=== PATIENT | female | born 1950 | race Caucasian/White ===

== ENCOUNTER → 2017-02-15 | Day surgery (SDC) | payer OTHER ==
[2017-02-05 10:04] VITALS: BMI 29.0
[~2017-02-15] VITALS: Ht 167.6 cm; Wt 81.8 kg
[~2017-02-15] MED LIST: FENTANYL CITRATE INJ 50 MCG/1 ML 2 ML VIAL ONE; LIDOCAINE HCL 2% 2 ML VIAL (20MG/ML) ONE; PROPOFOL IV EMULSION 10 MG/ML 20 ML VIAL IV ONE; VNTHFA/IN INH
[2017-02-15 09:57] VITALS: Ht 167.6 cm; Wt 81.8 kg
--- NOTE | 2017-02-15 10:22 | Endo History and Physical ---
History & Physical Date of Service: Feb 15, 2017. Chief Complaint: hx of polyps Referring Physician: Dr. Lantigua History of Present Illness H/o polyps Past Surgical History Hx Cardiac Surgery: No Hx Internal Defibrillator: No Hx Pacemaker: No Hx Abdominal Surgery: Yes (TUBAL LIGATION) Hx of Implantable Prosthesis: No Hx Post-Op Nausea and Vomiting: No Hx Cancer Surgery: No Hx Thoracic Surgery: No Hx Orthopedic: No Hx Urinary Tract Surgery: No Family History None Social History Smoking Status: Former Smoker Hx Substance Use: No Hx Alcohol Use: No Allergies Coded Allergies: No Known Allergies (Unverified , 02/15/17) Current Medications Reported Home Medications Medications Dose Route/Sig Max Daily Dose Days Date Category Ventolin Hfa (Albuterol) 200 Puffs/50669 Mcg Aers 2-4 Puffs INH Q6H PRN 02/05/17 Reported Vital Signs Weight (Kilograms): 81.82 Height (Feet): 5 Height (Inches): 6 Date Time Temp Pulse Resp B/P Pulse Ox O2 Delivery O2 Flow Rate FiO2 02/15/17 10:12 37.0 64 16 140/74 93 Room Air Physical Exam General Appearance: no apparent distress Respiratory/Chest: Auscultation: breath sounds normal Cardiovascular: Heart Auscultation: RRR Abdomen: Inspection & Palpation: soft Assessment and Plan H/o polyps - cscopy
--- NOTE | 2017-02-15 11:25 | Discharge Instructions ---
Endoscopy Patient Instructions Date / Procedure(s) Performed Feb 15, 2017. Colonoscopy Allergy Information Coded Allergies: No Known Allergies (Unverified , 02/15/17) Discharge Date / Findings Feb 15, 2017. Multiple polyps, colitis, diverticulosis Provider Instructions Activity Restrictions - No exercising or heavy lifting for 24 hours. - Do not drink alcohol the day of the procedure. - Do not drive a car or operate machinery until the day after the procedure. - Do not make any important decisions or sign important papers in 24 hours after the procedure. Following Day: - Return to full activity which may include returning to work/school. Diet Start your diet with liquids and light foods (jello, soup, juice, toast). Then eat your usual diet if not nauseated. Treatment For Common After Affects For mild abdominal pain, bloating, or excessive gas: - Rest - Eat lightly - Lie on right side Follow-Up Information Follow-up with Dr. Lantigua as scheduled Anesthesia Information What You Should Know You have had a procedure that required some medicine to reduce anxiety and discomfort. This treatment is called moderate sedation. After receiving the treatment, you may be sleepy, but you will be able to breathe on your own. The effects of the treatment may last for several hours. Follow these instructions along with Activity/Diet recommendations noted above: * Do NOT do anything where dizziness or clumsiness would be dangerous. * Rest quietly at home today, then you can be up and about tomorrow. * Have a responsible person stay with you the rest of today. * You may have had an I.V. today. If so, you may take the dressing off later today. Recommendations Call your doctor if: * Trouble breathing * Continuous vomiting for more than 24 hours * Temperature above 101 degrees * Severe abdominal pain or bloating * Pain not relieved by pain medicine ordered * There is increased drainage or redness from any incision * A large amount of rectal bleeding greater than 2-3 tablespoons. (If you had a polyp/s removed or have hemorrhoids, a small amount of blood - from the rectum is to be expected.) * You have any unanswered questions or concerns. IN THE EVENT OF A SERIOUS EMERGENCY, GO TO THE NEAREST EMERGENCY ROOM Your discharge instructions were prepared by provider Krunal Huston. Patient Instructions Signature Page Elida Cotter Patient (or Guardian) Signature/Date: I have read and understand the instructions given to me by my caregivers. Caregiver/RN/Doctor Signature/Date: The above-named patient and/or guardian has received patient instructions on this date. + Original Patient Signature Page (only) stays with chart. Please make copy for patient.
--- NOTE | 2017-02-15 11:25 | GI REPORT ---
Procedure Date: 02/15/2017 10:16 AM Procedure: Colonoscopy Indications: High risk colon cancer surveillance: Personal history of colonic polyps Medicines: See the Anesthesia note for documentation of the administered medications Complications: No immediate complications. Estimated Blood Loss: Estimated blood loss: none. Procedure: Pre-Anesthesia Assessment: - ASA Grade Assessment: II - A patient with mild systemic disease. After I obtained informed consent, the scope was passed under direct vision. Throughout the procedure, the patient's blood pressure, pulse, and oxygen saturations were monitored continuously. The scope was introduced through the anus and advanced to the terminal ileum. The colonoscopy was performed without difficulty. The patient tolerated the procedure well. The quality of the bowel preparation was good. Findings: The perianal and digital rectal examinations were normal. Multiple small and large-mouthed diverticula were found in the sigmoid colon and in the descending colon. There was a localized area of patchy marked granularity and submucosal hemorrhage isolated to the sigmoid colon, in an area of diverticulosis, and in cecum. Biopsies taken from cecum and sigmoid colon. A 3 mm polyp was found at the appendiceal orifice. The polyp was sessile. The polyp was removed with a cold snare. Resection and retrieval were complete. A 7 mm polyp was found in the ascending colon. The polyp was sessile. The polyp was removed with a saline injection-lift technique using a hot snare. Resection and retrieval were complete. To prevent bleeding after the polypectomy, one hemostatic clip was successfully placed. There was no bleeding at the end of the procedure. A 2 mm polyp was found in the ascending colon. The polyp was sessile. The polyp was removed with a cold biopsy forceps. Resection and retrieval were complete. Three sessile polyps were found at the hepatic flexure. The polyps were 1 to 4 mm in size. These polyps were removed with a cold snare. Resection and retrieval were complete. Tattoo at splenic flexure without evidence of recurrent polyp. The ileum was normal. Impression: - Diverticulosis in the sigmoid colon and in the descending colon. - Patchy colitis in an area of sigmoid diverticulosis, and in cecum. - One 3 mm polyp at the appendiceal orifice, removed with a cold snare. Resected and retrieved. - One 7 mm polyp in the ascending colon, removed using injection-lift and a hot snare. Resected and retrieved. Clip was placed. - One 2 mm polyp in the ascending colon, removed with a cold biopsy forceps. Resected and retrieved. - Three 1 to 4 mm polyps at the hepatic flexure, removed with a cold snare. Resected and retrieved. Recommendation: - Await pathology results. - Discharge patient to home. Krunal Real M.D. Krunal Real MD 02/15/2017 11:25:27 AM This report has been signed electronically. Note Initiated On: 02/15/2017 10:16 AM I attest to the content of the Intraoperative Record and orders documented therein, exceptions below
[2017-02-15 11:58] VITALS: BP 123/62; PULSE 58; O2SAT 99
--- NOTE | 2017-02-15 12:28 | Anesthesiology Progress Note ---
Anesthesia Post Op Note Date & Time Feb 15, 2017 at 12:28 Vital Signs Pain Intensity: 0 Vital Signs Past 12 Hours Date Time Temp Pulse Resp B/P Pulse Ox O2 Delivery O2 Flow Rate FiO2 02/15/17 11:58 58 18 123/62 99 Room Air 02/15/17 11:27 52 18 123/61 97 Room Air 02/15/17 11:25 58 16 129/60 97 Room Air 02/15/17 11:06 67 16 100/67 95 Room Air 02/15/17 10:12 37.0 64 16 140/74 93 Room Air Notes Mental Status: alert / awake / arousable, participated in evaluation Pt Amnestic to Procedure: Yes Nausea / Vomiting: adequately controlled Pain: adequately controlled Airway Patency, RR, SpO2: stable & adequate BP & HR: stable & adequate Hydration State: stable & adequate Anesthetic Complications: no major complications apparent
== END | disposition home or self-care (01) ==
LOC: C.GI 09:21
PROVIDERS: ATTEND Internal Medicine Gastroenterology
DX: Z12.11 Encounter for screening for malignant neoplasm of colon (principal); Z86.010 Personal history of colon polyps; K57.31 Diverticulosis of large intestine without perforation or abscess with bleeding; K57.30 Diverticulosis of large intestine without perforation or abscess without bleeding; D12.1 Benign neoplasm of appendix; D12.2 Benign neoplasm of ascending colon; D12.3 Benign neoplasm of transverse colon; K52.9 Noninfective gastroenteritis and colitis, unspecified

== ENCOUNTER 2019-08-03 09:05 | Inpatient (IN) ==
[2019-08-03] MEDS ORDERED: ALBUT/IPRATROP 3MG/0.5MG NEB 3 ML VIAL NEB ONE (09:49)
[2019-08-03] MEDS ORDERED: methylPREDNISolone 125 MG/2 ML VIAL IV STA (09:49)
[2019-08-03 09:57] LABS: Basophils # (auto) 0.01 K/uL (0-0.2); Basophils % (auto) 0.1 %; Hematocrit (blood only) 45.6 % (37-47); Hemoglobin 16.1 g/dL (12.0-16.0); Immature Granulocytes # (auto) 0.02 K/uL (0.00-0.02); Immature Granulocytes % (auto) 0.2 %; Lymphocytes # (auto) 0.63 K/uL (1.2-3.4); Lymphocytes % (auto) 7.2 %; Mean Corpuscular Hemoglobin 32.8 pg (25-34); Mean Corpuscular Hgb Conc 35.3 g/dL (32-36); Mean Corpuscular Volume 92.9 fL (80-100); Mean Platelet Volume 10.9 fL (7.4-10.4); Monocytes # (auto) 0.63 K/uL (0.11-0.59); Monocytes % (auto) 7.2 %; Neutrophils % (auto) 85.3 %; Platelet Count 236 K/uL (130-400); RDW Coefficient of Variation 13.2 % (11.5-14.5); RDW Standard Deviation 44.8 fL (36.4-46.3); Red Blood Count 4.91 M/uL (4.2-5.4); White Blood Count 8.69 K/uL (4.8-10.8)
--- NOTE | 2019-08-03 10:01 | XRay Report ---
XR chest 1V portable CLINICAL HISTORY: 69 years-old Female presenting with shob. TECHNIQUE: Portable upright AP view of the chest was obtained. COMPARISON: 10/13/2018. FINDINGS: Atherosclerosis of the aortic arch. Cardiac silhouette enlarged. Pulmonary vascular prominence and in terlobular septal thickening. Added density of the lung bases with hazy opacity suggested. No large e ffusion or pneumothorax. Degenerative changes of the thoracic spine. Upper abdomen normal. IMPRESSION: 1. Cardiomegaly with volume overload, congestive change, and early bibasilar pulmonary edema. Electronically signed by: Javi Parker M.D. 08/03/2019 10:00 AM
[2019-08-03 10:04] LABS: Blood Urea Nitrogen 17 mg/dl (7-18); Calcium 9.3 mg/dl (8.5-10.1); Carbon Dioxide 27 mmol/L (21-32); Chloride 101 mmol/L (98-107); Est GFR (African American) 72.7; Est GFR (Non-African American) 62.7; Glucose 135 mg/dl (70-99); Magnesium 2.3 mg/dl (1.8-2.4); Potassium 4.1 mmol/L (3.5-5.1); Sodium 136 mmol/L (136-145)
[2019-08-03 10:09] LABS: Troponin I < 0.015 ng/ml (0-0.045)
[2019-08-03 10:47] LABS: Oxygen Saturation VBG 73.8 %; pH VBG 7.44 (7.36-7.41)
[2019-08-03] MEDS ORDERED: LEVOFLOXACIN/D5W 750 MG/150 ML BAG IV STA (11:52)
[2019-08-03] MEDS ORDERED: FUROSEMIDE 20 MG in SYRINGE 0 ML IV ONE (12:57)
--- NOTE | 2019-08-03 12:58 | History & Physical Report ---
Date of Service August 03, 2019 Assessment & Plan (1) COPD exacerbation: (2) Hypoxia: Present on admission with worsening shortness of breath. CXR showed cardiomegaly with volume overload, congestive change, and early bibasilar pulmonary edema Received IV solumedrol, Levaquin and nebulizer treatment in the ER Will start on IV solumedrol 40mg IV BID Continue Neb treatment and oxygen supplement Will Continue zithromax 250mg daily Volume Overload CXR showed cardiomegaly with volume overload, congestive change, and early bibasilar pulmonary edema No History of CHF Last ECHO on 10/19 showed no wall motion abnormality with EF btw 55 to 60% Will give Lasix 20mg IV Will repeat CXR in am DVT px on lovenox subq Ambulates Code Status FULL CODE History of Present Illness Chief Complaint: Worsening SOB Primary Care Provider: Virgilio Gallegos MD 69 years old female with past medical history of COPD, osteoporosis presented to the ER for worsening shortness of breath and wheezing. Patient said that shortness of breath started about 2 days ago. She said that yesterday shortness of breath occurred with minimal exertion but today her breathing got worse today. She said that she also developed productive cough. She said that she used her inhaler with no relief. she denies any recent traveling or sick contact. She said last night she started rescue kit for prednisone and azithromycin. She states she does use oxygen at night and she has been using it. In the ER she received nebulizer treatment and IV Solu-Medrol. CXR done in the ER showed cardiomegaly with volume overload, congestive change, and early bibasilar pulmonary edema. Currently denies any chest pain, palpitation, dizziness, and fever. Allergies Allergy/AdvReac Type Severity Reaction Status Date / Time No Known Allergies Allergy Verified 08/03/19 10:48 Home Medications Home Medications Medication Instructions Recorded Confirmed Type albuterol sulfate [Ventolin HFA] 2 - 4 puff INHALATION BID 10/13/18 08/03/19 His tory Trelegy Ellipta 1 puffs INH PM 08/03/19 08/03/19 History azithromycin 250 mg PO DAILY 08/03/19 08/03/19 History prednisone See Rx Instructions .ROUTE .COMPLEX 08/03/19 08/03/19 History Past Med/Surg History Medical History COPD (chronic obstructive pulmonary disease) Osteoporosis Adenomatous colon polyp History of tooth extraction all teeth On home oxygen therapy 3.5 L N/C hs and prn Surgical History History of tubal ligation Hx of colonoscopy with polypectomy 2009, 2010, 2011, 2014, 2016, 2018 Family History Mother Colon cancer Sister , age 18 Leukemia Sister , age 55 Lung cancer Other No family history of adverse response to anesthesia Social History Preferred Language: Gambian Communication Ability: Effective 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 Beliefs That Will Affect Care: None marital status: Current Living Situation: Spouse Other Information That Helps Us Care for You: No Feels Safe at Home: Yes Safety Concerns: Feels Safe At This Time Smoking Status: Former smoker Tobacco Type: cigarettes ; Cigarettes Per Day: 15 ; Second Hand Exposure: No ; Hx Alcohol Use: No Hx Substance Use: No Review of Systems 2 Review of Systems: All systems reviewed & are unremarkable except as noted in HPI & below Physical Exam Physical Exam: General- No acute distress Head- atraumatic Eyes- PERRL, EOMI, ENT- oropharynx clear Neck- supple, no JVD Lungs- Diminished BS with faint wheezing Heart- regular rhythm; no murmur Abdomen- normal bowel sounds, soft, nontender Extremities- no calf tenderness Neuro- alert, oriented x 3; PERRL, EOMI; no facial palsy; no dysarthria Skin- warm & dry Results & Data Vital Signs (Past 12 Hours) Vital Signs Temp Pulse Pulse Resp BP BP Pulse Ox 08/03/19 12:15 79 17 90 08/03/19 12:00 81 18 140/65 91 08/03/19 11:45 82 14 91 08/03/19 11:30 81 18 132/64 94 08/03/19 11:19 89 L 08/03/19 11:00 72 20 128/66 94 08/03/19 10:45 62 15 93 08/03/19 10:30 61 20 121/68 94 08/03/19 10:15 61 18 97 08/03/19 10:13 59 L 16 126/82 95 08/03/19 10:04 56 L 16 91 08/03/19 10:00 55 L 16 126/82 90 08/03/19 09:45 63 20 91 08/03/19 09:34 56 L 20 117/66 91 08/03/19 09:33 54 L 16 117/66 91 08/03/19 09:30 61 17 89 L 08/03/19 09:22 65 17 91 08/03/19 09:09 36.7 C 63 20 153/82 H 89 L Diagnostic Findings XR chest 1V portable CLINICAL HISTORY: 69 years-old Female presenting with shob. TECHNIQUE: Portable upright AP view of the chest was obtained. COMPARISON: 10/13/2018. FINDINGS: Atherosclerosis of the aortic arch. Cardiac silhouette enlarged. Pulmonary vascular prominence and interlobular septal thickening. Added density of the lung bases with hazy opacity suggested. No large effusion or pneumothorax. Degenerative changes of the thoracic spine. Upper abdomen normal. IMPRESSION: 1. Cardiomegaly with volume overload, congestive change, and early bibasilar pulmonary edema. Electronically signed by: Javi Parker M.D. 08/03/2019 10:00 AM Dictated: 08/03/19 0959 Transcribed: 08/03/19 0959
[2019-08-03] MEDS: ALBUT/IPRATROP 3MG/0.5MG NEB 3 ML VIAL NEB SCH ×2 (15:32→19:24)
--- NOTE | 2019-08-03 16:33 | Emergency Department Note ---
Entered by Kathy Trimble acting as a scribe for ED Provider Note Name: Elida Cotter Age: 69 Arrives Via: Walk In Informant: Patient CC: SOB HPI: A 69 year old female arrives for evaluation of SOB beginning yesterday. She reports she felt "isela" yesterday. When asked to clarify what this means, she states she just "did not feel good." The patient reports she uses oxygen at night but not during the day. Pt has a cough with some mucus and has persistent SOB while on 2 L of oxygen. Pt denies any history of CHF or history of heart problems, chest pain, urinary symptoms, headache, neck pain, vision changes, rashes. Dr. 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 Daughter notes symptoms worse with exertion, better with resting. She has had O2 sats in the 70s at home on room air. Denies fevers, chills, syncope. She started azithromycin last night without improvement. Using nebulizer without improvement. ROS: See above HPI for pertinent positives & negatives. A total of 10 systems reviewed and were otherwise negative. Past Medical History: COPD. Dependance on supplemental oxygen. Nephrolithiasis Past Surgical History: Tubal ligation. Colonoscopy with polypectomy Family History: Colon cancer. Leukemia. Lung cancer. Social History: . Lives with spouse. Former smoker. Home Medications: Albuterol Sulfate. Prednisone. Trelegy Ellipta. Allergies No known allergies Physical: Vitals: BP 153/82, P 59, R 16, O2 95%, Temp 98.1 Exam: GENERAL: Patient is unwell appearing and in mild distress. EYES: No scleral icterus, unremarkable pupils. ENT: Mucous membranes moist, no nasal congestion. NECK: No masses appreciated, no meningismus, trachea is midline. RESPIRATORY: Moving minimal air. Mildly dyspneic. Faint wheezing. CARDIOVASCULAR: Regular rate and rhythm. No murmurs, rubs, gallops appreciated. GASTROINTESTINAL: Abdomen soft, non-tender, no peritonitis. Bowel sounds positive. No masses appreciated. BACK: No midline tenderness, no CVA tenderness EXTREMITIES: Normal motion all extremities, no cyanosis, no edema. NEUROLOGIC: Alert and oriented, no acute motor or sensory deficits, no focal weakness, cranial nerves grossly intact. SKIN: No rash, no jaundice, no diaphoresis. ED Course: Prior Medical Record, Triage/Nursing Notes, Medications, Allergies reviewed by Me Vital Signs: reviewed and remarkable for wnl Labs: Reviewed and remarkable for wnl Interventions: saline lock, hour duoneb, levaquin 750mg IV, Solumedrol 125mg IV Imaging: Radiology results as stated below per my review and the radiologist's interpretation: XR chest 1V portable CLINICAL HISTORY: 69 years-old Female presenting with shob. TECHNIQUE: Portable upright AP view of the chest was obtained. COMPARISON: 10/13/2018. FINDINGS: Atherosclerosis of the aortic arch. Cardiac silhouette enlarged. Pulmonary vascular prominence and interlobular septal thickening. Added density of the lung bases with hazy opacity suggested. No large effusion or pneumothorax. Degenerative changes of the thoracic spine. Upper abdomen normal. IMPRESSION: 1. Cardiomegaly with volume overload, congestive change, and early bibasilar pulmonary edema. Electronically signed by: Javi Parker M.D. 08/03/2019 10:00 AM EKG: Per My Interpretation: Indication SHOB: NSR 61 bpm qtc 434 without ectopy nor ischemia. Similar to EKG 10/2018. Blood pressure: 153/82 Elevated - Further management by hospitalist Course: 0944: Past medical records reviewed. The patient was evaluated in room C7. A complete history and physical exam was performed. 1110: On nebulizer. Starting to move air but has tight wheezing throughout. Still dyspneic 1145: I checked on the patient at this time. She is unable to ambulate to the bathroom without dropping oxygen to 60%. Consults: 1154: I discussed the patients case with Dr. Avalos, [facility] Hospitalist. He will further evaluate the patient. Disposition: Being Evaluated by hospitalist Prescriptions: noen. Differentials: Differential: Infectious, Reactive Airway Disease, Pneumonia, Pneumothorax, COPD, CHF, ACS, Pulmonary Embolism, MSK, GI, Dissection, amongst other etiologies entertained. Medical Decision Making: Very pleasant 69 yr old female arrivals for evaluation of worsening shob over the last 2 days. Long history of COPD and uses O2 at night. Today with sats to 70s on RA. Very tight lung sounds on initial examination and after hour neb opening up some with diffuse wheezing and improved. She attempted to ambulate to bathroom and immediately drops to 70s sats. She does not have evidence of sepsis, pe, dissection nor acs. This is consistent with COPD exacerbation and given hypoxia will need to come in for further management. Impression: COPD exacerbation Hypoxia The scribe's documentation has been prepared under my direction and personally reviewed by me in its entirety. I confirm that the note above accurately reflects all work, treatment, procedures, and medical decision making performed by me. Mayo Daigle MD Impression & Plan COPD exacerbation, Hypoxia Past Med/Surg History Medical History COPD (chronic obstructive pulmonary disease) Osteoporosis Adenomatous colon polyp History of tooth extraction all teeth On home oxygen therapy 3.5 L N/C hs and prn Surgical History History of tubal ligation Hx of colonoscopy with polypectomy 2009, 2010, 2011, 2014, 2016, 2018 Family History Mother Colon cancer Sister , age 18 Leukemia Sister , age 55 Lung cancer Other No family history of adverse response to anesthesia Social History Preferred Language: Senegalese Communication Ability: Effective Student Driving Instructor Required: No Beliefs That Will Affect Care: None marital status: Current Living Situation: Spouse Other Information That Helps Us Care for You: No Feels Safe at Home: Yes Safety Concerns: Feels Safe At This Time Smoking Status: Former smoker Tobacco Type: cigarettes ; Cigarettes Per Day: 15 ; Second Hand Exposure: No ; Hx Alcohol Use: No Hx Substance Use: No Results & Data Vital Signs Vital Signs - 24 hr 08/03/19 09:09 08/03/19 09:22 08/03/19 09:30 Temperature 36.7 C Temperature Source Oral Sepsis Recent Fever Within 48 Hours No Sepsis New/Unexplained Change in Mental Status No Sepsis Action Taken by Nursing No Action Required Pulse Rate 63 65 61 Pulse Rate [Apical] Pulse Rate from SpO2 Sensor 65 60 Pulse Rhythm [Apical] Pulse Strength [Apical] Respiratory Rate 20 17 17 Respiratory Effort / Characteristics Blood Pressure 153/82 H Blood Pressure [Left Arm] Blood Pressure Mean 105 Blood Pressure Mean [Left Arm] Blood Pressure Position [Left Arm] Pulse Oximetry 89 L 91 89 L Oxygen Delivery Method Nasal Cannula Nasal Cannula Nasal Cannula Oxygen Flow Rate 3 3.5 3.5 08/03/19 09:33 08/03/19 09:34 08/03/19 09:45 Temperature Temperature Source Sepsis Recent Fever Within 48 Hours Sepsis New/Unexplained Change in Mental Status Sepsis Action Taken by Nursing Pulse Rate 54 L 63 Pulse Rate [Apical] 56 L Pulse Rate from SpO2 Sensor 56 L 64 Pulse Rhythm [Apical] Regular Pulse Strength [Apical] Normal Respiratory Rate 16 20 20 Respiratory Effort / Characteristics Short of Breath Blood Pressure 117/66 Blood Pressure [Left Arm] 117/66 Blood Pressure Mean 83 Blood Pressure Mean [Left Arm] 83 Blood Pressure Position [Left Arm] Lying Pulse Oximetry 91 91 91 Oxygen Delivery Method Nasal Cannula Nasal Cannula Nasal Cannula Oxygen Flow Rate 3.5 3.5 3.5 08/03/19 10:00 08/03/19 10:04 08/03/19 10:13 Temperature Temperature Source Sepsis Recent Fever Within 48 Hours Sepsis New/Unexplained Change in Mental Status Sepsis Action Taken by Nursing Pulse Rate 55 L Pulse Rate [Apical] 56 L 59 L Pulse Rate from SpO2 Sensor 56 L Pulse Rhythm [Apical] Regular Pulse Strength [Apical] Normal Respiratory Rate 16 16 16 Respiratory Effort / Characteristics Non-Labored Spontaneous Non-Labored Spontaneous Blood Pressure 126/82 Blood Pressure [Left Arm] 126/82 Blood Pressure Mean 96 Blood Pressure Mean [Left Arm] 96 Blood Pressure Position [Left Arm] Lying Pulse Oximetry 90 91 95 Oxygen Delivery Method Nasal Cannula Nasal Cannula Nebulizer Oxygen Flow Rate 3.5 3.5 08/03/19 10:15 08/03/19 10:30 08/03/19 10:45 Temperature Temperature Source Sepsis Recent Fever Within 48 Hours Sepsis New/Unexplained Change in Mental Status Sepsis Action Taken by Nursing Pulse Rate 61 61 62 Pulse Rate [Apical] Pulse Rate from SpO2 Sensor 60 61 62 Pulse Rhythm [Apical] Pulse Strength [Apical] Respiratory Rate 18 20 15 Respiratory Effort / Characteristics Blood Pressure 121/68 Blood Pressure [Left Arm] Blood Pressure Mean 85 Blood Pressure Mean [Left Arm] Blood Pressure Position [Left Arm] Pulse Oximetry 97 94 93 Oxygen Delivery Method Nebulizer Nasal Cannula Oxygen Flow Rate 7 3.5 08/03/19 11:00 08/03/19 11:19 08/03/19 11:30 Temperature Temperature Source Sepsis Recent Fever Within 48 Hours Sepsis New/Unexplained Change in Mental Status Sepsis Action Taken by Nursing Pulse Rate 72 81 Pulse Rate [Apical] Pulse Rate from SpO2 Sensor 74 96 H 81 Pulse Rhythm [Apical] Pulse Strength [Apical] Respiratory Rate 20 18 Respiratory Effort / Characteristics Blood Pressure 128/66 132/64 Blood Pressure [Left Arm] Blood Pressure Mean 86 86 Blood Pressure Mean [Left Arm] Blood Pressure Position [Left Arm] Pulse Oximetry 94 89 L 94 Oxygen Delivery Method Nasal Cannula Nasal Cannula Nasal Cannula Oxygen Flow Rate 3.5 3.5 3.5 08/03/19 11:45 08/03/19 12:00 08/03/19 12:15 Temperature Temperature Source Sepsis Recent Fever Within 48 Hours Sepsis New/Unexplained Change in Mental Status Sepsis Action Taken by Nursing Pulse Rate 82 81 79 Pulse Rate [Apical] Pulse Rate from SpO2 Sensor 83 80 78 Pulse Rhythm [Apical] Pulse Strength [Apical] Respiratory Rate 14 18 17 Respiratory Effort / Characteristics Blood Pressure 140/65 Blood Pressure [Left Arm] Blood Pressure Mean 90 Blood Pressure Mean [Left Arm] Blood Pressure Position [Left Arm] Pulse Oximetry 91 91 90 Oxygen Delivery Method Nasal Cannula Nasal Cannula Nasal Cannula Oxygen Flow Rate 3.5 3.5 3.5 Home Medications Current Medication List: was personally reviewed by me Laboratory Data Attestation: I reviewed the patient's lab results. Result diagrams: 08/03/19 09:34 08/03/19 09:34 Lab Results 08/03/19 08/03/19 08/03/19 Range/Units 09:34 09:34 09:34 WBC 8.69 (4.8-10.8) K/uL RBC 4.91 (4.2-5.4) M/uL Hgb 16.1 H (12.0-16.0) g/dL Hct 45.6 (37-47) % MCV 92.9 (80-100) fL MCH 32.8 (25-34) pg MCHC 35.3 (32-36) g/dL RDW Std Deviation 44.8 (36.4-46.3) fL RDW Coeff of Elvin 13.2 (11.5-14.5) % Plt Count 236 (130-400) K/uL MPV 10.9 H (7.4-10.4) fL Immature Gran % (Auto) 0.2 % Neut % (Auto) 85.3 % Lymph % (Auto) 7.2 % [place] % (Auto) 7.2 % Eos % (Auto) 0.0 % Baso % (Auto) 0.1 % Immature Gran # (Auto) 0.02 (0.00-0.02) K/uL Neut # (Auto) 7.40 H (1.4-6.5) K/uL Lymph # (Auto) 0.63 L (1.2-3.4) K/uL [place] # (Auto) 0.63 H (0.11-0.59) K/uL Eos # (Auto) 0.00 (0-0.5) K/uL Baso # (Auto) 0.01 (0-0.2) K/uL VBG pH (7.36-7.41) VBG pCO2 (38-50) mmHg VBG pO2 mmHg VBG HCO3 mmol/L VBG O2 Saturation % VBG Base Excess mEq/L Barometric Pressure mm/Hg Sodium 136 (136-145) mmol/L Potassium 4.1 (3.5-5.1) mmol/L Chloride 101 (98-107) mmol/L Carbon Dioxide 27 (21-32) mmol/L Anion Gap 8.0 (3-11) BUN 17 (7-18) mg/dl Creatinine 0.93 (0.6-1.2) mg/dl Est Cr Clr Drug Dosing 64.0 ml/min Est GFR ( Amer) 72.7 Est GFR (Non-Af Amer) 62.7 BUN/Creatinine Ratio 18.0 (10-20) Glucose 135 H (70-99) mg/dl Calcium 9.3 (8.5-10.1) mg/dl Magnesium 2.3 (1.8-2.4) mg/dl Troponin I < 0.015 (0-0.045) ng/ml NT-Pro-B Natriuret Pep 536 (0-900) pg/ml 08/03/19 Range/Units 10:36 WBC (4.8-10.8) K/uL RBC (4.2-5.4) M/uL Hgb (12.0-16.0) g/dL Hct (37-47) % MCV (80-100) fL MCH (25-34) pg MCHC (32-36) g/dL RDW Std Deviation (36.4-46.3) fL RDW Coeff of Elvin (11.5-14.5) % Plt Count (130-400) K/uL MPV (7.4-10.4) fL Immature Gran % (Auto) % Neut % (Auto) % Lymph % (Auto) % [place] % (Auto) % Eos % (Auto) % Baso % (Auto) % Immature Gran # (Auto) (0.00-0.02) K/uL Neut # (Auto) (1.4-6.5) K/uL Lymph # (Auto) (1.2-3.4) K/uL [place] # (Auto) (0.11-0.59) K/uL Eos # (Auto) (0-0.5) K/uL Baso # (Auto) (0-0.2) K/uL VBG pH 7.44 H (7.36-7.41) VBG pCO2 42 (38-50) mmHg VBG pO2 39 mmHg VBG HCO3 28 mmol/L VBG O2 Saturation 73.8 % VBG Base Excess 3.0 mEq/L Barometric Pressure 733.0 mm/Hg Sodium (136-145) mmol/L Potassium (3.5-5.1) mmol/L Chloride (98-107) mmol/L Carbon Dioxide (21-32) mmol/L Anion Gap (3-11) BUN (7-18) mg/dl Creatinine (0.6-1.2) mg/dl Est Cr Clr Drug Dosing ml/min Est GFR ( Amer) Est GFR (Non-Af Amer) BUN/Creatinine Ratio (10-20) Glucose (70-99) mg/dl Calcium (8.5-10.1) mg/dl Magnesium (1.8-2.4) mg/dl Troponin I (0-0.045) ng/ml NT-Pro-B Natriuret Pep (0-900) pg/ml Administered Medications Albuterol (Duoneb) 3 ml NEB QIDR [facility] Stop: 09/02/19 14:59 Last Admin: 08/03/19 15:32 Dose: 3 ml Documented by: [id number] Discontinued Medications Albuterol (Duoneb) 12 ml NEB ONE ONE Stop: 08/03/19 09:50 Last Admin: 08/03/19 10:03 Dose: 12 ml Documented by: [id number] Levofloxacin/Dextrose (Levaquin/D5w) 750 mg in 150 mls @ 100 mls/hr IV NOW STA Stop: 08/03/19 13:21 Last Infusion: 08/03/19 14:33 Dose: 0 mls/hr Documented by: [id number] Admin: 08/03/19 12:43 Dose: 100 mls/hr Documented by: [id number] Furosemide 20 mg/ Syringe 2 mls @ 4 mls/min IV ONE ONE Stop: 08/03/19 12:58 Last Admin: 08/03/19 13:32 Dose: 4 mls/min Documented by: [id number] Methylprednisolone (Solumedrol) 125 mg IV NOW STA Stop: 08/03/19 09:50 Last Admin: 08/03/19 10:12 Dose: 125 mg Documented by: [id number] Imaging Data Attestation: I personally reviewed and interpreted this imaging study as fol lows: Radiologist's Impression: Radiology results as stated below per my review and the radiologist's interpretation: XR chest 1V portable CLINICAL HISTORY: 69 years-old Female presenting with shob. TECHNIQUE: Portable upright AP view of the chest was obtained. COMPARISON: 10/13/2018. FINDINGS: Atherosclerosis of the aortic arch. Cardiac silhouette enlarged. Pulmonary vascular prominence and interlobular septal thickening. Added density of the lung bases with hazy opacity suggested. No large effusion or pneumothorax. Degenerative changes of the thoracic spine. Upper abdomen normal. IMPRESSION: 1. Cardiomegaly with volume overload, congestive change, and early bibasilar pulmonary edema. Electronically signed by: Javi Parker M.D. 08/03/2019 10:00 AM Blood Pressure Blood Pressure Findings: Elevated blood pressure Blood Pressure Disposition: further management by hospitalist Discharge Plan Visit Data *Final* Discharge Date/Time: 08/03/19 14:05 Chief Complaint: Shortness of Breath/Dyspnea Stated Complaint: SOB, NOT FEELING RIGHT ED Provider: Mayo Daigle Discharge Problem: COPD exacerbation, Hypoxia Patient Disposition: Admitted As Inpatient Discharge Instructions Interventions: ED Discharge Assessment Last Done: 08/03/19 14:05 The scribe's documentation has been prepared under my direction and personally reviewed by me in its entirety. I confirm that the note above accurately reflects all work, treatment, procedures, and medical decision making performed by me.
[2019-08-03] MEDS: AZITHROMYCIN 250 MG TAB PO SCH (20:06)
[2019-08-03] MEDS: methylPREDNISolone 40 MG in SYRINGE 0 ML IV SCH (20:06)
[2019-08-03] MEDS: FLUTICASONE/UMECLIDIN/VILANTER INH SCH (20:07)
[2019-08-03] MEDS: ENOXAPARIN INJ 40 MG/0.4 ML SYR SQ SCH (20:11)
--- NOTE | 2019-08-04 07:05 | XRay Report ---
XR chest 1V portable CLINICAL HISTORY: Shortness of breath. Congestive failure. COMPARISON STUDY: August 03, 2019 FINDINGS: The heart remains enlarged. There is improving mild pulmonary vascular congestion/fluid ove rload. There is no lobar consolidation. There are no significant pleural effusions.[ IMPRESSION: Cardiomegaly and improving mild pulmonary vascular congestion/fluid overload Electronically signed by: Ace Mo M.D. 08/04/2019 7:04 AM
[2019-08-04] MEDS: ALBUT/IPRATROP 3MG/0.5MG NEB 3 ML VIAL NEB SCH ×4 (07:13→19:25)
[2019-08-04 07:25] LABS: BUN Creatinine Ratio 29.4 (10-20); Calcium 9.3 mg/dl (8.5-10.1); Creatinine Clr Calc Pharmacy 60.1 ml/min; Est GFR (African American) 67.4; Est GFR (Non-African American) 58.1; Potassium 4.1 mmol/L (3.5-5.1)
[2019-08-04] MEDS: methylPREDNISolone 40 MG in SYRINGE 0 ML IV SCH ×2 (08:12→20:50)
--- NOTE | 2019-08-04 14:08 | Hospitalist Progress Note ---
Date of Service August 04, 2019 Assessment & Plan (1) Acute respiratory failure with hypoxia: (2) COPD exacerbation: Present on admission with worsening shortness of breath. CXR showed cardiomegaly with volume overload, congestive change, and early bibasilar pulmonary edema Received IV solumedrol, Levaquin and nebulizer treatment in the ER Was starting on IV solumedrol 40mg IV BID, will transition to oral prednisone Will change Albuterol to Levalbuterol Continue oxygen supplement On Zithromax 250mg daily Volume Overload CXR showed cardiomegaly with volume overload, congestive change, and early bibasilar pulmonary edema No History of CHF ProBNP normal Last ECHO on 10/19 showed no wall motion abnormality with EF btw 55 to 60% Lasix 20mg IV given yesterday CXR done this morning showed cardiomegaly and improving mild pulmonary vascular congestion/fluid overload Will give low dose lasix 20mgx1 today DVT px on lovenox subq Ambulates Code Status FULL CODE Disposition Will discharge one medically stable Subjective Pt was seen and examined Sitting in chair with no distress Pt said that she continues to have difficulty to breath Pt said that she feels whenever she got the neb treatment, it caused her to shake She denies any chest pain, palpitation, dizziness and fever Physical Exam Physical Exam: General- No acute distress Head- atraumatic Eyes- PERRL, EOMI, ENT- oropharynx clear Neck- supple, no JVD Lungs- Diminished BS Heart- regular rhythm; no murmur Abdomen- normal bowel sounds, soft, nontender Extremities- no calf tenderness Neuro- alert, oriented x 3; PERRL, EOMI; no facial palsy; no dysarthria Skin- warm & dry Results & Data Vital Signs (Past 12 Hours) Vital Signs Temp Pulse Resp BP Pulse Ox 08/04/19 06:58 36.8 C 59 L 17 111/71 92
[2019-08-04] MEDS ORDERED: FUROSEMIDE 20 MG in SYRINGE 0 ML IV ONE (14:30)
[2019-08-04] MEDS ORDERED: XOPENEX/ATROVENT 0.63mg/0.5MG NEB COMBO NEB PRN (20:07)
[2019-08-04] MEDS ORDERED: LEVALBUTEROL HCL 0.63 MG/3 ML NEB NEB PRN (20:15)
[2019-08-04] MEDS ORDERED: IPRATROPIUM BROMIDE NEB SOLN 0.02% 2.5 ML VIAL INH PRN (20:15)
[2019-08-04] MEDS: FLUTICASONE/UMECLIDIN/VILANTER INH SCH (20:50)
[2019-08-04] MEDS: ENOXAPARIN INJ 40 MG/0.4 ML SYR SQ SCH (20:52)
[2019-08-04] MEDS: AZITHROMYCIN 250 MG TAB PO SCH (20:53)
[2019-08-05 08:33] LABS: BUN Creatinine Ratio 34.9 (10-20); Calcium 9.5 mg/dl (8.5-10.1); Creatinine Clr Calc Pharmacy 63.3 ml/min; Est GFR (African American) 71.7; Est GFR (Non-African American) 61.9; Potassium 4.4 mmol/L (3.5-5.1)
[2019-08-05] MEDS: predniSONE 20 MG TAB PO SCH (10:10)
--- NOTE | 2019-08-05 14:25 | Hospitalist Progress Note ---
Date of Service August 05, 2019 Assessment & Plan (1) COPD exacerbation: COPD exacerbation (Acute) Presented with cough and worsening dyspnea. Chest x-ray did not show any definite infiltrates. Treated with azithromycin, steroids, nebs with improvement. Chronic respiratory failure with hypoxia, on home O2 therapy (Chronic) Titrate supplemental O2. 2-step pulse oximetry prior to discharge. CHF (congestive heart failure) (Acute) Admission chest x-ray showed cardiomegaly and pulmonary vascular congestion. Received 2 doses of furosemide. Echo last year showed normal LVEF. Check f/u echo. Check BNP in a.m. Check f/u chest x-ray in a.m. VTE prophylaxis SQ enoxaparin. Ambulate. Disposition Anticipated discharge to home. Family Medicine follow-up with Dr. Gallegos. Pulmonary Medicine follow-up with LUIS Lara. Subjective Recheck for multiple problems. Patient seen in their room around 1400. Feels better. Cough improved. Less SOB. No fever. Noted to have O2 sats in mid 70s during ambulation on RA. Review of Systems: Constitutional- no fever. Cardiac- no chest pain. Pulmonary- as noted above. GI- no nausea, vomiting, diarrhea, melena, hematochezia. - no urinary symptoms. Otherwise, as noted above. Physical Exam Physical Exam: Constitutional- afebrile, no acute distress Eyes- sclerae anicteric Respiratory- bibasilar rales, minimal wheezing, no resp distress Cardiovascular- cardiac rhythm regular, no murmurs or gallops appreciated, + JVD, trace pretibial edema, no calf tenderness Gastrointestinal- normal bowel sounds, soft, nondistended, nontender Skin- warm and dry, no rash Psychiatric- alert, oriented Results & Data Vital Signs (Past 12 Hours) Vital Signs Temp Pulse Resp BP Pulse Ox 08/05/19 07:14 36.4 C L 55 L 20 126/76 94 Laboratory Results 08/03/19 09:34 08/05/19 07:41
[2019-08-05] MEDS: FLUTICASONE/UMECLIDIN/VILANTER INH SCH (20:18)
[2019-08-05] MEDS: AZITHROMYCIN 250 MG TAB PO SCH (20:19)
[2019-08-05] MEDS: ENOXAPARIN INJ 40 MG/0.4 ML SYR SQ SCH (20:53)
[2019-08-06 07:04] VITALS: BP 122/66; TEMP 98.1
--- NOTE | 2019-08-06 07:39 | XRay Report ---
XR chest 1V portable HISTORY: 69 years-old Female CHF acute shortness of breath with congestive heart failure COMPARISON: Chest radiograph 08/04/2019, CTA chest 10/13/2018 TECHNIQUE: Portable AP view of the chest FINDINGS: Cardiac silhouette is enlarged, unchanged. Pulmonary vascular congestion persists. Calcified plaque o f the thoracic aortic arch. Mild right hemidiaphragmatic elevation. Probable trace pleural effusions with bibasilar opacities and emphysema. Degenerative changes of the shoulders and spine. IMPRESSION: 1. Cardiomegaly with unchanged pulmonary vascular congestion. 2. Emphysema. 3. Persistent bibasilar opacities suggestive of probable atelectasis. The above report was generated using voice recognition software. It may contain grammatical, syntax o r spelling errors. Electronically signed by: Charles Garcia M.D. 08/06/2019 7:38 AM
[2019-08-06] MEDS: predniSONE 20 MG TAB PO SCH (08:20)
[2019-08-06 09:19] LABS: Creatinine Clr Calc Pharmacy 60.1 ml/min; Est GFR (African American) 67.4; Est GFR (Non-African American) 58.1; Potassium 3.8 mmol/L (3.5-5.1)
--- NOTE | 2019-08-06 14:42 | Hospitalist Progress Note ---
Date of Service August 06, 2019 Assessment & Plan (1) COPD exacerbation: Dyspnea Patient presented with worsening dyspnea. Symptoms probably due to combination of COPD and CHF as discussed below. COPD exacerbation (Acute) Presented with cough and worsening dyspnea. Chest x-ray did not show any definite infiltrates. Treated with azithromycin, steroids, nebs with improvement. Needs 1 more day of azithromycin and prednisone to complete 5 days of therapy. Pulmonary follow-up with LUIS Lara. Chronic respiratory failure with hypoxia, on home O2 therapy (Chronic) Titrate supplemental O2. 2-step pulse oximetry showed that patient needs 2 LPM at rest + 3 LPM with activity. CHF (congestive heart failure) (Acute) Admission chest x-ray showed cardiomegaly and pulmonary vascular congestion. Received 2 doses of furosemide with improvement. Echo showed normal LVEF, grade II diastolic dysfunction. Probable acute on chronic left ventricular diastolic heart failure. Has been prescribed furosemide 20 mg daily PRN for lower extremity edema; change Rx to 20 mg every day. Given instructions for CHF. VTE prophylaxis SQ enoxaparin. Ambulating. Disposition Discharge to home. Family Medicine follow-up with Dr. Gallegos. Pulmonary Medicine follow-up with LUIS Lara. Subjective Recheck for dyspnea and other problems. Patient seen in their room in the afternoon. SOB improved. Mild cough. No chest pain. Ready to go home. 2-step pulse oximetry performed. Requires O2 2 LPM at rest and 3 LPM with activity. Review of Systems: Constitutional- no fever. Cardiac- as noted above. Pulmonary- as noted above. GI- no nausea, vomiting, diarrhea, melena, hematochezia. - no urinary symptoms. Otherwise, as noted above. Physical Exam Physical Exam: Constitutional- afebrile, no acute distress Eyes- sclerae anicteric Respiratory- few basilar rales, mild wheezing, no respiratory distress Cardiovascular- cardiac rhythm regular, no murmurs or gallops appreciated, + JVD, 1+ pretibial edema; no calf tenderness Gastrointestinal- normal bowel sounds, soft, nondistended, nontender Skin- warm and dry, no rash Psychiatric- alert, oriented Results & Data Vital Signs (Past 12 Hours) Vital Signs Temp Pulse Pulse Pulse Pulse Pulse Pulse 08/06/19 09:59 74 85 90 86 75 08/06/19 07:04 36.7 C 53 L Resp Resp Resp Resp Resp Resp BP 08/06/19 09:59 18 20 20 18 18 08/06/19 07:04 16 122/66 Pulse Ox Pulse Ox Pulse Ox Pulse Ox Pulse Ox Pulse Ox 08/06/19 09:59 93 91 86 L 91 87 L 08/06/19 07:04 90 Laboratory Results 08/03/19 09:34 08/06/19 08:21
[2019-08-06 14:59] VITALS: PULSE 76; O2SAT 90
--- NOTE | 2019-08-07 21:05 | Discharge Summary ---
Date of Service Date of Admission: 08/03/19 Date of Discharge: 08/06/19 Admission HPI Per Admitting Provider 69 years old female with past medical history of COPD, osteoporosis presented to the ER for worsening shortness of breath and wheezing. Patient said that shortness of breath started about 2 days ago. She said that yesterday shortness of breath occurred with minimal exertion but today her breathing got worse today. She said that she also developed productive cough. She said that she used her inhaler with no relief. she denies any recent traveling or sick contact. She said last night she started rescue kit for prednisone and azithromycin. She states she does use oxygen at night and she has been using it. In the ER she received nebulizer treatment and IV Solu-Medrol. CXR done in the ER showed cardiomegaly with volume overload, congestive change, and early bibasilar pulmonary edema. Currently denies any chest pain, palpitation, dizziness, and fever. Principal Diagnosis Acute on chronic hypoxic respiratory failure Exacerbation of COPD Acute on chronic left ventricular diastolic heart failure Discharge Data Allergies Allergy/AdvReac Type Severity Reaction Status Date / Time No Known Allergies Allergy Verified 08/03/19 10:48 Consultations 08/03/19 11:55 ED Decision to Admit Stat Hospital Course (1) COPD exacerbation: Acute on chronic hypoxic respiratory failure Patient presented with worsening dyspnea associated with worsening hypoxia. O2 sats in 70s when ambulating short distance on RA. Symptoms probably due to combination of COPD and CHF as discussed below. COPD exacerbation (Acute) Presented with cough and worsening dyspnea. Chest x-ray did not show any definite infiltrates. Treated with azithromycin, steroids, nebs with improvement. Needs 1 more day of azithromycin and prednisone to complete 5 days of therapy. Pulmonary follow-up with LUIS Lara. Chronic respiratory failure with hypoxia, on home O2 therapy (Chronic) Titrated supplemental O2. 2-step pulse oximetry showed that patient needs 2 LPM at rest + 3 LPM with activity. CHF (congestive heart failure) (Acute) Admission chest x-ray showed cardiomegaly and pulmonary vascular congestion. Received 2 doses of furosemide with improvement. Echo showed normal LVEF, grade II diastolic dysfunction. Probable acute on chronic left ventricular diastolic heart failure. Has been prescribed furosemide 20 mg daily PRN for lower extremity edema; change Rx to 20 mg every day. Given instructions for CHF. VTE prophylaxis SQ enoxaparin. Ambulating. Disposition Discharged to home. Family Medicine follow-up with Dr. Gallegos. Pulmonary Medicine follow-up with LUIS Lara. Total Time Total Time Spent Total Time Spent (In Minutes): 40 Discharge Plan Discharge Items Patient Disposition: Home - Self-Care Reason For Visit: shortness of breath Discharge Diagnosis: worsening COPD (emphysema) congestive heart failure (fluid in lungs) Condition: Good Discharge Goals: Improve disease control and Improve function Activity: As commented below Activity Comment: gradually increase activity as tolerated Non-emergency contact: Primary Care Provider, Hospitalist and Assistant Unit Forester Call non-emergency contact if: you have any medication questions, your symptoms worsen and you have a fever Follow-up/Referrals: Kacy Pulliam CRNP [Nurse Practitioner] - (as scheduled) Virgilio Gallegos MD [Primary Care Provider] - (08/12/2019 1:20 PM Virgilio Gallegos MD) Diet: Heart Healthy Addtl Provider Instructions: MEDICATION CHANGES: Stop azithromycin (Zithromax) after dose on Tuesday 08/07. Take prednisone 40 mg on Tuesday 08/07, then stop (no need to taper). Start taking furosemide (Lasix) and potassium chloride every day. SUMMARY OF TEST RESULTS: Chest x-ray showed fluid in lungs. Echocardiogram showed that heart muscle is strong, but stiff. Oxygen levels were low, especially when walking. PENDING TEST RESULTS: none RECOMMENDATIONS FOR FOLLOW-UP: Outpatient pulmonary medicine follow-up with LUIS Lara. OTHER INSTRUCTIONS: New oxygen instructions: 2 liters / minute at rest 3 liters / minute with activity Seek medical attention if you have: * temperature above 101 * chest pain or trouble breathing * abdominal pain, nausea, vomiting * diarrhea, dark stools or bloody stools * any unanswered questions or concerns Call 911 if symptoms are severe. Please take good care of yourself. Call if you have any questions or problems. You can reach a [facility] hospitalist on duty at [facility] 24 hours a day by calling [phone]. My cell # is [phone]. CHF INSTRUCTIONS Call 911 and go to the Emergency Room if: * You have tightness or pain in your chest that does not go away with rest or Nitroglycerin * You are very short of breath even with rest Call your doctor if any of the following symptoms or problems start or get worse: * Shortness of breath or difficulty breathing * Wake up at night short of breath * Chest pain * Cough * Swelling of your hands, fee, or legs * More fatigued or tired with your normal activity * Palpitations - sudden fast heart beats WEIGHT * Weigh yourself every morning after using the bathroom. * Use the same scale. * Wear the same amount of clothing. * Write your weight down on your chart. * Call your doctor if you gain more than 2-3 pounds in 1-2 days. MEDICATIONS * Use this discharge instruction sheet for instructions. * Take your medications at the time your doctor ordered. * Do not skip a dose of your medicines. * If you miss a dose of medicine, take as soon as possible, but DO NOT DOUBLE A DOSE. * Read your medicine information when you get home. * Know all of the side effects of your medicine. * Call your doctor's office if you have any side effects. * Be sure all of your doctors know what medicine and herbs you take (including cold, flu, and herbal medicine). * Pain Medicine: If you do not get relief from your pain, please call your doctor for help. Take the following with you to your follow-up doctor appointments: * Weight Chart * Medication List * List of questions Do not drink excessive alcohol, beer or wine. Prescriptions: Continued albuterol sulfate [Ventolin HFA] 90 mcg/actuation Hfa Aerosol Inhaler 2 - 4 puff INHALATION BID RF: 0 prednisone 10 mg tablet See Rx Instructions .ROUTE .COMPLEX RF: 0 azithromycin 250 mg tablet 250 mg PO DAILY RF: 0 Trelegy Ellipta 100-62.5-25 mcg blister with device 1 puffs INH PM RF: 0 Changed potassium chloride 20 mEq tablet,ER particles/crystals 20 meq PO DAILY Qty: 0 RF: 0 furosemide 20 mg tablet 20 mg PO DAILY Qty: 0 RF: 0 No Action [id number] [Trelegy Ellipta] 100-62.5-25 mcg blister with device RF: 0 Stand-Alone Forms: [facility] Discharge Orders: Discharge Order (Routine); Ordered 08/06/19 Ordered By: Cristobal Wiley Admission Data Admit Date/Time: 08/03/19 13:08 Attending Provider: Cristobal Wiley Admmarvin Provider: Dilma Avalos Primary Care Provider: Virgilio Gallegos Other Providers: Dilma Avalos Service: Medical Other Interventions: Discharge Summary Assessment (RN) Last Done: 08/06/19 14:57 DC Date/Time DO NOT enter until pt leaves facility: 08/06/19 16:17
== END 2019-08-06 16:17 | disposition home or self-care (01) | DRG 190 ==
LOC: ED 09:05 → 2W 13:08 → SUATTDRO 13:08 → 2W 14:05

== ENCOUNTER 2023-11-04 08:09 | Inpatient (IN) ==
[2023-11-04] MEDS ORDERED: ALBUT/IPRATROP 3MG/0.5MG NEB 3 ML VIAL INH STA (08:32)
--- OUTSIDE RECORDS SUMMARY | 2023-11-04 08:35 | External Medical Summary | Summary of Care ---
Author Name Unknown Organization [facility] Address [address] [place] [address] Phone [phone] Care Team Providers Care Arts And Crafts Teacher Name Role Phone Virgilio Gallegos MD Primary Care Provider [phone] Reason for Visit * Reason Onset Date Comments Health Maintenance 08/28/2023 Encounter Details Date Type Department Care Team Description 08/28/2023 Telephone [facility] [address] [place] [address] Virgilio Gallegos MD [address] [place] [address] Health Maintenance Allergies No known active allergiesdocumented as of this encounter (statuses as of 08/28/2023) Medications Medication Sig Dispensed Refills Start Date End Date Status azithromycin (ZITHROMAX Z-BRIAN) 250 MG TabletIndications:CO PD exacerbation (HCC),Acute sinusitis, recurrence not specified, unspecified location Take two tablets by mouth on first day, then 1 tablet daily until gone 6 Tab 1 12/08/2019 Active Additional Information Patient not taking.Reported on 03/01/2023 Albuterol Sulfate HFA 108 (90 Base) MCG/ACT Inhalation Aerosol SolutionIndications: COPD, moderate (HCC) INHALE 2 PUFFS BY MOUTH EVERY 4 HOURS NEEDED WHEEZING 18 g 5 08/23/2020 Active Vitamin D 25 MCG (1000 UT) Oral Tablet Take by mouth. 0 Active Benzonatate 100 MG Oral Capsule ([place])Indications:U pper respiratory tract infection, unspecified type Take 1 Cap by mouth 3 times a day as needed for Cough. 30 Cap 1 03/21/2021 Active Additional Information Patient not taking.Reported on 03/01/2023 predniSONE 10 MG Oral Tablet (Deltasone)Indicatio ns:COPD exacerbation (HCC) Take 5 tabs for 2 days, 4 tabs for 2 days, 3 tabs for 2 days, 2 tabs for 2 days 1 tab for 2 days 30 Tablet 0 08/13/2022 Active Additional Information Patient not taking.Reported on 03/01/2023 Trelegy Ellipta 100-62.5-25 MCG/INH Aerosol Powder Breath Activated (Fluticasone-Umeclid inium-Vilanterol)Ind ications:COPD, moderate (HCC) INHALE 1 PUFF BY MOUTH DAILY. 180 Each 3 08/16/2022 Active guaiFENesin-Codeine 100-10 MG/5ML Oral SolutionIndications: COPD exacerbation (HCC) Take 5 mL by mouth 4 times a day as needed for Congestion or Cough. 60 mL 0 10/11/2022 Active Additional Information Patient not taking.Reported on 03/01/2023 Furosemide 20 MG Oral Tablet (Lasix)Indications:C hronic diastolic heart failure (HCC) TAKE ONE TABLET BY MOUTH EVERY DAY NEEDED EDEMA 90 Tablet 0 02/13/2023 Active Atorvastatin Calcium 20 MG Oral Tablet (Lipitor)Indications :Dyslipidemia TAKE ONE TABLET BY MOUTH DAILY. 90 Tablet 0 02/13/2023 Active Potassium Chloride Flaquita ER 20 MEQ Oral Tablet Extended ReleaseIndications:C hronic diastolic heart failure (HCC) TAKE ONE TABLET BY MOUTH EVERY DAY WITH EACH DOSE OF FUROSEMIDE 90 Tablet 0 02/13/2023 Active documented as of this encounter (statuses as of 08/28/2023) Active Problems Problem Noted Date COPD, group B, by GOLD 2017 classificati on 11/12/2022 Overview: Per COPD GOLD Classification Chronic kidney disease, stage 3a 021 Overview: Per CKD protocol Chronic respiratory failure with hypoxia , on home O2 therapy 08/24/2021 NAFLD (nonalcoholic fatty liver disease) 09/08/2020 Prediabetes 09/14/2019 Overview: Per Prediabetes protocol Chronic diastolic heart failure 08/12/20 19 History of adenomatous polyp of colon Other osteoporosis without current patho logical fracture 11/01/2005 Overview: ICD-10 update of inactive term documented as of this encounter (statuses as of 08/28/2023) Resolved Problems Problem Noted Date Resolved Date COPD, group A, by GOLD 2017 classification 09/1411/15/2022 Overview: Per COPD GOLD Classification COPD, moderate 12/23/2009 09/16/2019 Menopause 11/12/2008 05/08/2018 Overview: Late 30s documented as of this encounter (statuses as of 08/28/2023) Immunizations Name Administration Dates Next Due COVID-19 mRNA, LNP-s, No Pre serve, 2-Dose Series (Moderna) 07/18/2021,06/20/2021 Pneumococcal Conjugate Vacc, 13 Valent (Prevnar) 09/30/2015 Pneumococcal Polysaccharide PPV23 (Pneumovax) 08/12/2017 Seasonal Influenza, PF, 6 mo ns & Above, IM , (Flulaval) 08/23/2020,08/25/2019,08/18/2018 Seasonal Influenza, Quadriva lent Hd (Fluzone Hd) 09/11/2022 Seasonal Influenza, Quadriva lent, No Preserve, IM 09/30/2015 Seasonal Influenza, Split, I IV3, With Preserve, Inj 08/12/2017 TD, Preservative Free 03/01/2023 TDAP (age 11 and older)(Adacel) 11/12/2008 Zoster Vaccine Recombinant (Shingrix) 05/25/2022 ,02/15/2022 documented as of this encounter Social History Tobacco Use Types Packs/Day Years Used Date Smoking Tobacco: Former Cigarettes 0.8 40 Q uit: 10/02/2007 Smokeless Tobacco: Never Alcohol Use Standard Drinks/Week Comments No 0 (1 standard drink = 0.6 oz pur e alcohol) Food Insecurity Answer Date Recorded Within the past 12 months, y ou worried that your food would run out before you got money to buy more. Never true 09/11/2022 Within the past 12 months, t he food you bought just didn't last and you didn't have money to get more. Never true 09/11/2022 Sex Assigned at Date Recorded Female 08/25/2019 8:25 AM E DT Job Start Date Occupation Industry Not on file Not on file Not on file documented as of this encounter Miscellaneous Notes * Telephone Encounter - Kaylene Mackay LPN - 08/28/2023 9:04 AM EDT Care Gaps Comprehensive Care Outreach Last Office/Telemedicine Visit: 03/01/2023 (in office), 03/21/2021 (telemedicine) Next Office Visit: 09/10/2023 Hemoglobin AIC Results: Lab Results Component Value Date/Time HEMOGLOBIN A1C - [facility] 5.9 (H) 03/01/2023 10:55 AM HEMOGLOBIN A1C - [facility] 6.3 (H) 08/24/2022 09:01 AM HEMOGLOBIN A1C - [facility] 5.8 (H) 11/28/2021 08:35 AM HEMOGLOBIN A1C - [facility] 6.0 (H) 08/29/2020 09:09 AM HEMOGLOBIN A1C - [facility] 6.1 (H) 08/23/2020 10:18 AM HEMOGLOBIN A1C - [facility] 6.2 (H) 08/25/2019 09:02 AM Reviewed Health Maintenance below: Health Maintenance Topic Date Due Alpha-1 Antitrypsin Never done *BISPHONATE OR OTHER ACCEPTABLE MEDICATION NEEDED FOR OSTEOPOROSIS (REFER TO SMARTSET #1146) Never done DXA Scan 06/03/2021 COVID-19 Vaccine (3 - Moderna series) 09/12/2021 Influenza Vaccine (FLU shot) (1) 08/02/2023 Mammogram 08/24/2023 CKD HGB USE SMARTSET 30972 08/24/2023 CKD PHOS USE SMARTSET 87175 08/24/2023 Albumin/Creatinine Ratio 09/11/2023 Depression Screening 09/11/2023 GFR 08/31/2023 Dexa Mamm declined Labs/urine add lipid ordered and scheduled Care Gap Outreach Action Taken: Spoke to patient documented in this encounter Plan of Treatment Upcoming Encounters Date Type Specialty Care Team Description 09/05/2023 Laboratory Laboratory Denise Masters [address] [place] [facility] [place] [address] 09/10/2023 Office Visit Family Medicine Virgilio Gallegos MD [address] [place] [address] 09/12/2023 Nurse Only [facility] Nurse Annual Wellness [address] [place] [facility] [place] [address] Scheduled Orders Name Type Priority Associated Diagnoses Orde r Schedule HGB Lab Routine Chronic kidney disease, unspecified CKD stage Expected: 08/28/2023, Expires: 08/28/2024 CBC Lab Routine Chronic kidney disease, unspecified CKD stage Expected: 08/28/2023, Expires: 08/28/2024 PHOSPHORUS Lab Routine Chronic kidney disease, unspecified CKD stage Expected: 08/28/2023, Expires: 08/28/2024 COMPREHENSIVE METABOLIC PANEL Lab Routine Chronic kidney disease, unspecified CKD stage Expected: 08/28/2023, Expires: 08/28/2024 Scheduled Procedures Name Priority Associated Diagnoses Date/Ti me COLONOSCOPY FLEXIBLE PROXIMAL DIAGNOSTIC Recall History of colon polyps Health Maintenance Due Date Last Done Comments Alpha-1 Antitrypsin 1968 *BISPHONATE OR OTHER ACCEPTABLE MEDICATION NEEDED FOR OSTEOPOROSIS (REFER TO SMARTSET #1146) 09/07/2015 DXA Scan 06/03/2021 06/03/2019, 09/01, 04/07/2012, Additional history exists COVID-19 Vaccine (3 - Moderna series) 09/12/2021 07/18/2021, 06/20/2021 Influenza Vaccine (FLU shot) (#1) 2023 09/11/2022, 08/23/2020, 08/25/2019, Additional history exists CKD HGB USE SMARTSET 93152 08/24/202308/24, 11/28/2021, 03/05/2019, Additional history exists CKD PHOS USE SMARTSET 84277 08/24/2023 08/24/2022, 1 01/29/2021 Mammogram 08/24/2023 08/24/2022, 08/03, 06/03/2019, Additional history exists GFR 08/31/2023 03/01/2023, 08/03, 11/28/2021, Additional history exists Albumin/Creatinine Ratio 09/11/2023 09/11/2022 Depression Screening 09/11/2023 09/11/2022 COLONOSCOPY-EVERY 2 YRS AGES 18-100 02/03/2024 02/02/2022, 07/08/2019, 06/10/2018, Additional history exists HbA1c 03/01/2024 03/01/2023, 08/03, 11/28/2021, Additional history exists O2 ASSESSMENT COMPLETED IN PAST YEAR FOR COPD 03/01/2024 03/01/2023 Lipid Panel 08/24/2027 08/24/2022, 11/02, 08/24/2021, Additional history exists DTaP,Tdap,and Td Vaccines (3 - Td or Tdap) 03/01/2033 03/01/2023, 11/12/2008 Pneumococcal Vaccine: 65+ Years Completed 08/12/2017, 09/30/2015 Zoster Vaccines Completed 05/25/2022, 02/15/2022 VITAMIN D LEVEL ONCE IN A LIFETIME-USE SMARTSET# [id number] Completed 08/24/2022, 08/23/2020, 12/23/2009 GARDASIL-HPV IMMUNIZATION SERIES Aged Out No longer eligible based on patient's age to complete this topic Hepatitis B Aged Out No longer eligi ble based on patient's age to complete this topic MENINGOCOCCAL (MENACTRA/MENVEO) Aged Out No longer eligible based on patient's age to complete this topic documented as of this encounter Medical Devices Not on filedocumented as of this encounter Visit Diagnoses Diagnosis Chronic kidney disease, unspecified CKD stage- Primary documented in this encounter Care Teams Arts And Crafts Teacher Relationship Specialty Start Date End Date Virgilio Gallegos MD [address], [place] [id number] PCP - General Family Medicine 05/08/18 documented as of this encounter
--- OUTSIDE RECORDS SUMMARY | 2023-11-04 08:35 | External Medical Summary | Summary of Care ---
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 Engineer [employer] Name Role Phone Virgilio Gallegos MD Primary Care Provider [phone] Reason for Visit * Reason Comments Adult Annual Wellness Visit, Subsequent Visit Encounter Details Date Type Department Care Team Description 09/11/2022 Nurse Only Ancillary Department, [place] [address] [place] [address] [facility] Nurse Annual Wellness [address] [place] [address] Adult Annual Wellness Visit, Subsequent Visit Allergies No known active allergiesdocumented as of this encounter (statuses as of 08/26/2023) Medications Medication Sig Dispensed Refills Start Date End Date Status azithromycin (ZITHROMAX Z-BRIAN) 250 MG TabletIndications :COPD exacerbation (HCC),Acute sinusitis, recurrence not specified, unspecified location Take two tablets by mouth on first day, then 1 tablet daily until gone 6 Tab 1 0 Active Additional Information Patient not taking.Reported on 03/01/2023 Albuterol Sulfate HFA 108 (90 Base) MCG/ACT Inhalation Aerosol SolutionIndicatio ns:COPD, moderate (HCC) INHALE 2 PUFFS BY MOUTH EVERY 4 HOURS NEEDED WHEEZING 18 g 5 0 Active Vitamin D 25 MCG (1000 UT) Oral Tablet Take by mouth. 0 Active Benzonatate 100 MG Oral Capsule (Agustina Grissom)Indication s:Upper respiratory tract infection, unspecified type Take 1 Cap by mouth 3 times a day as needed for Cough. 30 Cap 1 1 Active Additional Information Patient not taking.Reported on 03/01/2023 predniSONE 10 MG Oral Tablet (Deltasone)Indica tions:COPD exacerbation (HCC) Take 5 tabs for 2 days, 4 tabs for 2 days, 3 tabs for 2 days, 2 tabs for 2 days 1 tab for 2 days 30 Tablet 0 2 Active Additional Information Patient not taking.Reported on 03/01/2023 Trelegy Ellipta 100-62.5-25 MCG/INH Aerosol Powder Breath Activated (Fluticasone-Umec lidinium-Vilanter ol)Indications:CO PD, moderate (HCC) INHALE 1 PUFF BY MOUTH DAILY. 180 Each 3 2 Active Zoster Vac Recomb Adjuvanted 50 MCG/0.5ML Intramuscular Suspension Reconstituted (Shingrix)Indicat ions:Need for vaccination for zoster Inject 0.5 mL into a large muscle now and repeat dose in 60 to 180 days 1 Each 1 1 09/11/20 22 Discontinued(Il dication List Clean Up) Potassium Chloride Falquita ER 20 MEQ Oral Tablet Extended ReleaseIndication s:Chronic diastolic heart failure (HCC) TAKE ONE TABLET BY MOUTH EVERY DAY WITH EACH DOSE OF FUROSEMIDE 90 Tablet 1 2 02/14/20 23 Discontinued Atorvastatin Calcium 20 MG Oral Tablet (Lipitor)Indicati ons:Dyslipidemia TAKE ONE TABLET BY MOUTH DAILY. 90 Tablet 1 2 02/14/20 23 Discontinued Furosemide 20 MG Oral Tablet (Lasix)Indication s:Chronic diastolic heart failure (HCC) TAKE ONE TABLET BY MOUTH EVERY DAY NEEDED EDEMA 90 Tablet 1 2 02/14/20 23 Discontinued Doxycycline Hyclate 100 MG Oral CapsuleIndication s:COPD exacerbation (HCC) Take by mouth 1 Capsule in the morning AND 1 Capsule before bedtime. Until gone.. 20 Capsule 0 2 09/11/20 22 Discontinued(Il dication List Clean Up) documented as of this encounter (statuses as of 08/26/2023) Active Problems Problem Noted Date COPD, group [...] as of this encounter (statuses as of 08/26/2023) Resolved Problems Problem Noted Date Resolved Date COPD, group A, by GOLD 2017 classification 09/1411/15/2022 Overview: Per COPD GOLD Classification COPD, moderate 12/23/2009 09/16/2019 Menopause 11/12/2008 05/08/2018 Overview: Late 30s documented as of this encounter (statuses as of 08/26/2023) Immunizations Name Administration Dates Next Due COVID-19 [...] on file documented as of this encounter Last Filed Vital Signs Vital Sign Reading Time Taken Comments Blood Pressure 110/72 09/11/2022 9:30 AM EDT Pulse 66 09/11/2022 9:30 AM EDT Temperature 36 C (96.8 F) 09/11/2022 9:30 AM EDT Respiratory Rate - - Oxygen Saturation 96% 09/11/2022 9:30 AM EDT Inhaled Oxygen Concentration - - Weight 93 kg (205 lb 1.6 oz) 09/11/2022 9:30 AM EDT Height 161.3 cm (5' 3.5") 09/11/2022 9:30 AM EDT Body Mass Index 35.76 09/11/2022 9:30 AM EDT documented in this encounter Patient Instructions * Patient Instructions* Kate Ferrera RN - 09/11/2022 9:18 AM EDT ~~PATIENT INSTRUCTIONS FOR FLU SHOT~~ Possible side effects of influenza vaccine, (flu shot), are usually mild and include: 1. Soreness or redness at injection site 2. Low grade fever 3. Body aches You may use Tylenol/Acetaminophen as needed for these symptoms. LET YOUR DOCTOR KNOW IMMEDIATELY IF YOU HAVE DIFFICULTY BREATHING OR SWALLOWING, EXPERIENCE ITCHINGOF FEET OR HANDS, HAVE SWELLING OF EYES, FACE OR INSIDE OF NOSE. Patient Instructions - Fall Prevention (This education is for all patients over 65 regardless of symptoms) Remember to take your current medications as prescribed. In order to prevent falls, you are encouraged to: Exercise Utilize assistive/adaptive devices Avoid multifocal lenses when walking Avoid hazards in home Maintain a regular toileting schedule Any questions please contact our office. Preventing Falls in the Home (This education is for all patients over 65 regardless of symptoms) As you get older, falls are more likely. Thats because your reaction time slows. Your muscles and joints may also get stiffer, making them less flexible. Illness, medications, and vision changes can also affect your balance. A fall could leave you unable to live on your own. To make your home safer, follow these tips: Floors Put nonskid pads under area rugs Remove throw rugs Replace worn floor coverings Tack carpets firmly to each step on carpeted stairs. Put nonskid strips on the edges of uncarpeted stairs Keep floors and stairs free of clutter and cords Arrange furniture so there are clear pathways Clean up any spills right away Bathrooms Install grab bars in the tub or shower Apply nonskid strips or put a nonskid rubber mat in the tub or shower Sit on a bath chair to bathe Use bathmats with nonskid backing Lighting Keep a flashlight in each room Put a nightlight along the pathway between the bedroom and the bathroom Sri Patient Education Copyright 2008 - 2010 Sri except where otherwise noted Preventing Falls: Exercises to Improve Balance, Flexibility, Strength, and Staying Power (This education is for all patients over 65 regardless of symptoms) Certain types of exercises may help make you less likely to fall. Try the ones below. Or do other exercises that your healthcare provider suggests. Depending on your health, you may need to start slowly. Dont let that stop you. Even small amounts of exercise can help you. Be sure to talk to yourhealthcare provider before starting any exercise program. Improve Balance Many types of exercise can help improve balance. Karson chi and yoga are good examples. Heres another one to try. You can do it anytime and almost anywhere. Stand next to a counter or solid support. Push yourself up onto your tiptoes. Hold for 5 seconds. If you start to lose your balance, hold on to the counter. Rest and repeat 5 times. Work up to holding for 20 to 30 seconds, if you can. Increase Flexibility Being more flexible makes it easier for you to move around safely. Try exercises like the seated hamstring stretch. Sit in a chair and put one foot on a stool. Straighten your leg and reach with both hands down either side of your leg. Reach as far down your leg as you can. Hold for about 20 seconds. Go back to the starting position. Then repeat 5 times. Switch legs. Build Strength Resistance exercises help build strength. You can do them without equipment. Or you can use weights, elastic bands, or special machines. One such exercise is called the biceps curl. You can hold a 1 pound weight or even a can of soup. Do this exercise at least 3 times a week. Strive for everyday. Sit up straight in a chair. Keep your elbow close to your body and your wrist straight. Bend your arm, moving your hand up to your shoulder. Then slowly lower your arm. Repeat 5 times. Switch to the other arm. Build Your Staying Power Aerobic exercises make your heart and lungs stronger so you can keep moving longer. Walking and swimming are two of the best types of exercises you can do. Using a stationary bike is great, too. Find an aerobic exercise that you enjoy. Start slowly and build up. Even 5 minutes is helpful. Aimfor a goal of 30 minutes, at least 3 times a week. You dont have to do 30 minutes in one session. Break it up and walk a little throughout the day. More Helpful Tips Start easy. Slowly work up to doing more. Talk with your healthcare provider about the best exercises for you. Call senior centers or health clubs about exercise programs. If needed, have a family member watch you walk every so often to check your stability. Exercise with a friend. Choose an activity you both enjoy. Try exercises that you can do anytime, anywhere. Here are two examples. Have someone with you when you first try these: Practice walking by placing one foot right in front of the other. Stand up and sit down 10 times. Repeat this throughout the day. Sri Patient Education Copyright 2008 - 2010 Sri except where otherwise noted. Preventing Falls: Moving Safely Using a Cane or Walker (This education is for all patients over 65 regardless of symptoms) Keep the cane away from your feet so you dont trip. A walking aid, such as a cane or walker, can help you stay more independent and avoid falls. Remember to keep your walking aid within easy reach when youre in a chair or in bed. And learn how to use it safely so you dont injure yourself. Using a Cane If you have a stronger side, hold the cane on that side. 17. Get your balance. 18. Move the cane and your weaker leg forward. 19. Support your weight on both the cane and your weaker side. 20. Step with your stronger leg. 21. Start again from step 1. If youre using a folding walker, be sure you know how to lock it open. Check that its locked open before each use. Using a Walker 7. Roll the walker (or lift it, if youre using one without wheels) forward about 12 inches. 8. Step forward with your weaker leg first. 9. Use the walker to help keep your balance. 10. Bring your other foot forward to the center of the walker. 11. Start again from step 1. Helpful Tips Check with your healthcare provider about the right walking aid to use. Ask about a walker with a seat attached. Check the tips of your cane or walker to make sure they have nonskid covers. Move slowly from room to room. Dont sepulveda. Sit down to get dressed. Use a shy pack or backpack to keep your hands free. Get help for jobs that mean climbing, even on a stepstool. Sri Patient Education Copyright 2008 - 2010 Sri except where otherwise noted. Urinary Incontinence Plan of Care Documentation: (This education is for all patients over 65 regardless of symptoms) Current medications reconciled. Patient encouraged to: Practice kegal exercises Provide education materials Use the restroom every 2 hours throughout the day Limit caffeine, alcohol, spicy foods and acidic foods Keep a bladder diary Limit fluid intake 3-4 hours before bed Lose weight Prevent constipation Take fluid pills at a time when you can get to the bathroom quickly Control sugar better if diabetic Limit fluid intake to 60 oz. per day Wear support stockings (TEDs)if you have edema Kate Ferrera RN 09/11/2022 Kegel Exercises Kegel exercises dont require special clothing or equipment. Theyre easy to learn and simple to do. And if you do them right, no one can tell youre doing them, so they can be done almost anywhere. Your doctor, nurse, or physical therapist can answer any questions you have and help you get started. A Weak Pelvic Floor The pelvic floor muscles may weaken due to aging, and vaginal childbirth, injury, surgery, chronic cough, or lack of exercise. If the pelvic floor is weak, your bladder and other pelvic organs may sag out of place. The urethra may also open too easily and allow urine to leak out. Kegel exercises can help you strengthen your pelvic floor muscles so they can better support the pelvic organs and control urine flow. How Kegel Exercises Are Done Try each of the Kegel exercises described below. When youre doing them, try not to move your leg, buttock, or stomach muscles. While youre urinating, try to stop the flow of urine. Start and stop it as often as you can. Contract as if you were stopping your urine stream, but do it when youre not urinating. Tighten your rectum as if trying not to pass gas. Contract your anus, but dont move your buttocks. Helpful Hints Do your Kegels as often as you can. The more you do them, the faster youll feel the results. Pick an activity you do often as a reminder. For instance, do your Kegels every time you sit down. Tighten your pelvic floor before you sneeze, get up from a chair, cough, laugh, or lift. This protects your pelvic floor from injury and can help prevent urine leakage. Try to hold each Kegel for a slow count to five. You probably wont be able to hold them for thatlong at first, but keep practicing. It will get easier as your pelvic floor gets stronger. Eventually, special weights that you place in your vagina may be recommended to help make your Kegels even more effective. Sri Patient Education Copyright 2009 - 2010 Sri except where otherwise noted. Here are some helpful tips for your urinary incontinence: (This education is for all patients over 65 regardless of symptoms) Practice Kegel exercises Use the restroom every 2 hours throughout the day Limit caffeine, alcohol, spicy foods, and acidic foods Keep a bladder diary Limit fluid intake 3-4 hours before bed Lose weight Prevent constipation Take fluid pills at a time when can get to the bathroom quickly Control sugar better if diabetic Limit fluid intake to 60 oz. per day Any questions, please feel free to contact our office. Hi Ms. Cotter, As your primary care physician, I know that regular visits with my patients who have several chronic conditions can go a long way in helping you stay healthy. Many times, the clinic team and I are in touch with you and/or other care team members between office visits to adjust medications, discuss any changes in your health, and review our care plan to make sure it is still meeting your needs. I am dedicated to helping you take a more active role in your overall care. It is important that there are resources available to you, so I created a personalized plan of care with a Health Calendar for you, which is included on the next page of this letter. Below is a list that summarizes your electronic health record: Health Maintenance Due: Health Maintenance Due Topic Date Due Alb / Creat Ratio Never done LUNG CANCER SCREENING - USE SMARTSET 72324 Never done Zoster Vaccines (1 of 2) Never done *BISPHONATE OR OTHER ACCEPTABLE MEDICATION NEEDED FOR OSTEOPOROSIS (REFER TO SMARTSET #1146) Never done DTaP,Tdap,and Td Vaccines (2 - Td or Tdap) 11/12/2018 DXA Scan 06/03/2021 Depression Screening, Annual for Pts 12 and Over 08/29/2021 COVID-19 Vaccine (3 - Booster for Moderna series) 09/12/2021 Influenza Vaccine (FLU shot) (1) 08/02/2022 Current Medication List: (as of Visit date not found (in office), Visit date not found (telemedicine) ) Current Outpatient Medications Medication Sig Dispense Refill Vitamin D 25 MCG (1000 UT) Oral Tablet Take by mouth. Potassium Chloride Flaquita ER 20 MEQ Oral Tablet Extended Release TAKE ONE TABLET BY MOUTH EVERY DAY WITH EACH DOSE OF FUROSEMIDE 90 Tablet 1 Atorvastatin Calcium 20 MG Oral Tablet (Lipitor) TAKE ONE TABLET BY MOUTH DAILY. 90 Tablet 1 Furosemide 20 MG Oral Tablet (Lasix) TAKE ONE TABLET BY MOUTH EVERY DAY NEEDED EDEMA 90 Tablet 1 Trelegy Ellipta 100-62.5-25 MCG/INH Aerosol Powder Breath Activated (Imtjnmbayie-Melhawkmuhdu-Jprtoswyod) INHALE 1 PUFF BY MOUTH DAILY. 180 Each 3 azithromycin (ZITHROMAX Z-BRIAN) 250 MG Tablet Take two tablets by mouth on first day, then 1 tablet daily until gone (Patient not taking: Reported on 08/13/2022 ) 6 Tab 1 Albuterol Sulfate HFA 108 (90 Base) MCG/ACT Inhalation Aerosol Solution INHALE 2 PUFFS BY MOUTHEVERY 4 HOURS NEEDED WHEEZING 18 g 5 Benzonatate 100 MG Oral Capsule (Tessean Grissom) Take 1 Cap by mouth 3 times a day as needed for Cough. (Patient not taking: Reported on 08/13/2022 ) 30 Cap 1 predniSONE 10 MG Oral Tablet (Deltasone) Take 5 tabs for 2 days, 4 tabs for 2 days, 3 tabs for 2 days, 2 tabs for 2 days 1 tab for 2 days 30 Tablet 0 No current facility-administered medications for this visit. Current List of Allergies: (as of Visit date not found (in office), Visit date not found (telemedicine) ) Review of patient's allergies indicates: No Known Allergies Most Recent Lab Results: Results for orders placed or performed in visit on 08/24/22 LIPID PANEL WITH DIRECT LDL IF TG IS HIGH Result Value Ref Range Triglycerides 117 <=174 mg/dL Cholesterol 142 <200 mg/dL HDL Cholesterol 45 (L) >49 mg/dL Non-HDL Cholesterol 97 <=159 mg/dL LDL Cholesterol 74 <=129 mg/dL COMPREHENSIVE METABOLIC PANEL Result Value Ref Range BUN 15 6 - 20 mg/dL Creatinine 1.1 (H) 0.5 - 1.0 mg/dL Estimated Glomerular Filtration Rate 55 (L) >=60 mL/min Sodium 142 135 - 146 mmol/L Potassium 5.1 3.5 - 5.1 mmol/L Chloride 103 98 - 107 mmol/L CO2 28 22 - 32 mmol/L Anion Gap 11 7 - 15 mmol/L Glucose 98 70 - 120 mg/dL Albumin 4.2 3.8 - 5.0 g/dL AST 30 10 - 35 U/L Alkaline Phosphatase 97 35 - 130 U/L Bilirubin, Total 1.1 <=1.2 mg/dL Calcium 10.2 8.4 - 10.2 mg/dL Protein 6.7 6.0 - 8.3 g/dL ALT 36 (H) 10 - 35 U/L HEMOGLOBIN A1C Result Value Ref Range Hemoglobin A1C 6.3 (H) 4.0 - 5.6 % Estimated Average Glucose 134 (H) <126 mg/dL HGB Result Value Ref Range HGB 16.1 (H) 12.0 - 15.3 g/dL PHOSPHORUS Result Value Ref Range Phosphorus 3.1 2.5 - 4.8 mg/dL 25-HYDROXY VITAMIN D Result Value Ref Range 25-Hydroxy Vitamin D 47 >19 ng/mL Sincerely, Virgilio Gallegos MD 09/11/2022 [facility] Calendar (as of Visit date not found (in office), Visit date not found (telemedicine) ) Care needs Care needs Last completed Due next Urine albumin/creatinine test --- Never done Lung cancer screening --- Never done Zoster (Shingles) Vaccine (1 of 2) --- Never done Discuss medication for ostoporosis --- Never done Diphtheria, tetanus & pertussis vaccines (2 - Td or Tdap) 11/12/2008 11/12/2018 Bone Density 06/03/2019 06/03/2021 COVID-19 Vaccine (3 - Booster for Moderna series) 07/18/2021 09/12/2021 Flu vaccine (recommended) (1) 08/23/2020 08/02/2022 Kidney Function Test 08/24/2022 02/21/2023 Yearly COPD oxygen test 08/13/2022 08/13/2023 Yearly A1C blood sugar average test 08/24/2022 08/24/2023 Colonoscopy - every 2 years 02/02/2022 02/03/2024 Mammogram 08/24/2022 08/24/2024 Lipid (cholesterol) disorder screening 08/24/2022 08/24/2027 As you look over the recommended services, be sure to check with your insurance company to determine what's covered. [employer] is a great tool that helps you review your medical record online, including test results, doctor notes and your health summary. You can also schedule appointments with me and other members of your care team, request prescription refills and ask for advice related to your medical conditions at [email or web address]. documented in this encounter Progress Notes * Kate Ferrera RN - 09/11/2022 9:18 AM EDT PRE - ADMINISTRATION DOCUMENTATION Are you experiencing any cold symptoms or fever? No Have you had Guillain-[place] Syndrome (an illness that causes paralysis) within the last 6 weeks? No Have you had the flu shot in the past? YES Have you ever had a reaction to the flu shot? No Kate Ferrera RN, 09/11/2022 9:18 AM Immunization Administration Documentation Time Out Procedure Performed: Yes Patient Identified (Ask Name/Date of ): Yes Does the patient have a fever greater than 101 degrees today? No Patient allergic to latex? No VFC Stock: No Immunization(s) verified: Yes, Immunization Name: Flu, VIS Sheet(s) given: Yes Verified Side and Site: Yes Verified Shot(s) with Parent(s)/Patient: Yes AD8 Dementia Screening Interview Person answering questions: patient Remember, "Yes, a change" indicates that there has been a change in the last several years caused by cognitive (thinking and memory) problems 1. Problems with judgement (eg: problems making decisions, bad financial decisions, problems with thinking). No (0) 2. Less interest in hobbies/activities. No (0) 3. Repeats the same things over and over (questions, stories, or statements). No (0) 4. Trouble learning how to use a tool, appliance, or gadget (eg: VCR, computer, microwave, remote control). No (0) 5. Forgets correct month or year. No (0) 6. Trouble handling complicated financial affairs (eg: balancing checkbook, income taxes, paying bills). No (0) 7. Trouble remembering appointments. No (0) 8. Daily problems with thinking and/or memory. No (0) TOTAL AD8: 0 - AD8 Dementia Screening Score The final score is a sum of the number items marked "Yes, A Change". 0 - 1: Normal cognition; 2 or greater: Cognitive impairments is likely to be present - further testing required Adult Annual Wellness Visit: Elida Cotter is a 72 year old female who presents for an Adult Annual Wellness Visit. Depression Screening: Did the patient complete the screening questionnaire for Depression? Yes Is the patient's total score for Depression 15 or greater? No, no further intervention needed, unless requested by patient. Did the patient answer positively to the suicide question? No, no further intervention needed, unless requested by patient. In general, compared to other people your age, what would you say that your health is? Very Good Ht Readings from Last 1 Encounters: 09/11/22 1.613 m (5' 3.5") Wt Readings from Last 1 Encounters: 09/11/22 93 kg (205 lb 1.6 oz) Body Mass Index: BMI Greater than 30 Body mass index is 35.76 kg/m. BP Readings from Last 1 Encounters: 09/11/22 110/72 Medical/Surgical/Family History Reviewed: Yes Past Medical History: Diagnosis Date Benign neoplasm of colon 01/16/10 hyperplastic and adenomatous tissue--repeat 1 year Benign neoplasm of colon 01/17/11 1 polyp --hyperplastic tissue repeat in 1 yr Benign neoplasm of colon 02/27/2012 2 polyps, pathshows hyperplastic polyp repeat in 3 years Menopause 11/12/2008 Late 30s Other malignant neoplasm of skin, site unspecified Skin Past Surgical History: Procedure Laterality Date COLONOSCOPY 2001 COLONOSCOPY W/ BIOPSY (RECTUM) 02/27/2012 2 polyps, pathshows hyperplastic polyp repeat in 3 years COLONOSCOPY W/ LESION REMOVAL, SNARE 01/16/2010 17 polyps removed- hyperplastic and adenomatous tissue--repeat 1 year COLONOSCOPY W/ LESION REMOVAL, SNARE 01/17/2011 1 polyp --hyperplastic tissue repeat in 1 yr COLONOSCOPY, DIAGNOSTIC (RECTUM) 09/30/2015 adenomatous polyps, diverticulosis, repeat 1 yr/COLONOSCOPY FLEXIBLE PROXIMAL DIAGNOSTIC performed by Krunal Real MD at [facility] COLONOSCOPY, DIAGNOSTIC (RECTUM) 02/15/2017 adenomatous polyps, inflammation on bx, repeat 1 yr/[facility] COLONOSCOPY, DIAGNOSTIC (RECTUM) 06/10/2018 serrated adenomatous polyp, diverticulosis, repeat 1 yr/[facility] COLONOSCOPY, DIAGNOSTIC (RECTUM) 07/08/2019 adenomatous polyp, repeat 2 yrs/[facility] COLONOSCOPY, DIAGNOSTIC (RECTUM) 02/02/2022 benign adenomatous polyps, repeat 2 yrs / [facility] LIGATE/CUT OVIDUCT(S) 1980 Family History Problem Relation Age of Onset Cancer Mother Colon CA Cancer Sister Lung CA Cancer Sister Leukemia Has patient ever had cancer? History of cancer, type: skin, unknown Social History Tobacco Use Smoking status: Former Smoker Packs/day: 0.75 Years: 40.00 Pack years: 30.00 Types: Cigarettes Quit date: 10/02/2007 Years since quittin.9 Smokeless tobacco: Never Used Substance Use Topics Alcohol use: No Vaping/E-Cigarette Use Vaping/E-Cigarette Substances Vaping/E-Cigarette Devices Tobacco/Alcohol screening completed today? Yes Hospital Care: Admissions (within the last year): Not Applicable ER within 30 days: No Does the patient have an Advance Directives/Living Will? No. Does the patient want information? Yes. Information given to patient Last Physical Exam: Last physical exam: 08/2021 Does patient see primary provider regularly? Yes Does patient see other providers? Yes, Specialist Patient Care Team updated? Yes Review of patient's allergies indicates: No Known Allergies Immunization History Administered Date(s) Administered COVID-19 mRNA, LNP-s, No Preserve, 2-Dose Series (Moderna) 06/20/2021, 07/18/2021 Pneumococcal Conjugate Vacc, 13 Valent (Prevnar) 09/30/2015 Pneumococcal Polysaccharide PPV23 (Pneumovax) 08/12/2017 Seasonal Influenza, Quadrivalent Hd (Fluzone Hd) 09/11/2022 Seasonal Influenza, Quadrivalent, No Preserve, 6 Mons & Above, IM 08/18/2018, 08/25/2019, 08/23/2020 Seasonal Influenza, Quadrivalent, No Preserve, IM 09/30/2015 Seasonal Influenza, Split, IIV3, With Preserve, Inj 08/12/2017 TDAP (age 11 and older)(Adacel) 11/12/2008 Zoster Vaccine Recombinant (Shingrix) 02/15/2022, 05/25/2022 Current Outpatient Medications Medication Sig Dispense Refill Vitamin D 25 MCG (1000 UT) Oral Tablet Take by mouth. Potassium Chloride Flaquita ER 20 MEQ Oral Tablet Extended Release TAKE ONE TABLET BY MOUTH EVERY DAY WITH EACH DOSE OF FUROSEMIDE 90 Tablet 1 Atorvastatin Calcium 20 MG Oral Tablet (Lipitor) TAKE ONE TABLET BY MOUTH DAILY. 90 Tablet 1 Furosemide 20 MG Oral Tablet (Lasix) TAKE ONE TABLET BY MOUTH EVERY DAY NEEDED EDEMA 90 Tablet 1 Trelegy Ellipta 100-62.5-25 MCG/INH Aerosol Powder Breath Activated (Mdmpandxysj-Cbfwcolyzdmr-Drqobfkfoa) INHALE 1 PUFF BY MOUTH DAILY. 180 Each 3 azithromycin (ZITHROMAX Z-BRIAN) 250 MG Tablet Take two tablets by mouth on first day, then 1 tablet daily until gone (Patient not taking: Reported on 08/13/2022 ) 6 Tab 1 Albuterol Sulfate HFA 108 (90 Base) MCG/ACT Inhalation Aerosol Solution INHALE 2 PUFFS BY MOUTHEVERY 4 HOURS NEEDED WHEEZING 18 g 5 Benzonatate 100 MG Oral Capsule (Agustina Grissom) Take 1 Cap by mouth 3 times a day as needed for Cough. (Patient not taking: Reported on 08/13/2022 ) 30 Cap 1 predniSONE 10 MG Oral Tablet (Deltasone) Take 5 tabs for 2 days, 4 tabs for 2 days, 3 tabs for 2 days, 2 tabs for 2 days 1 tab for 2 days 30 Tablet 0 No current facility-administered medications for this visit. Patient Active Problem List Diagnosis Code Other osteoporosis without current pathological fracture M81.8 History of adenomatous polyp of colon Z86.010 Chronic diastolic heart failure ([facility]) I50.32 COPD, group A, by GOLD 2017 classification ([facility]) J44.9 Prediabetes R73.03 NAFLD (nonalcoholic fatty liver disease) K76.0 Chronic respiratory failure with hypoxia, on home O2 therapy ([facility]) J96.11, Z99.81 Chronic kidney disease, stage 3a ([facility]) N18.31 Medication Compliance: Patient is able to obtain all of her medications? Yes Patient takes medications as prescribed? Yes Patient manages own medications: Yes Patient uses a pill box? Yes, refill(s) completed by self Dental Exam: No Dentures Eye Screening: Yes: Every year Are you having trouble with hearing? No Do you use an assistive device to help your hearing? No Exercise Screening: does not exercise regularly, walks with shopping 2 x per week Nutrition Assessment: Eats a balanced diet and Eats two meals a day Pain Screening: Are you having any pain? No Sleep Screening Tool 'STOP': 1. Do you snore? No 2. Do you feel fatigued during the day? No 3. Do you wake up feeling like you haven't slept? No 4. Have you been told you stop breathing at night? No 5. Do you gasp for air or choke while sleeping? No 6. Have you been told you have Sleep Apnea? No 7. Do you have high blood pressure or are on medication(s) to control high blood pressure? No SCORE: If you check YES to two or more questions, make a referral for Obstructive Sleep Apnea Patient and Caregiver Support System: Patient lives with a spouse Means of Transportation: Drives. Not a concern. Patient lives in [place] Resources: Not Applicable Functional Status and ADL Skills: Has patient ever had an amputation? No Functional Assessment: 80- Normal activity with effort: some symptoms of disease Ambulation: Patient ambulates without assistive device. Independent Dressing: Gets clothes and dresses without any assistance: Independent Able to move freely in chair or bed including turning over: Independent Repositioning (bed or chair): Not applicable Transfers: Independent Toileting: Goes to bathroom, uses toilet, arranges clothes and returns without any assistance: Independent Toileting: continent of bowel and incontinent of bladder Feeding: Self Bathing: Self; tub, grab bar, mat to step out onto, shower chair Requires none assistance with ADLs. Instrumental ADL's: Shopping: Independent Housekeeping: Independent Handling Finances: Independent DME Vendor Name: [employer] Fall Risk Assessment: Can the patient demonstrate that she can stand from a sitting position? Yes Has the patient had a fall within the last 6 months? No Does the patient have a problem with her gait or balance? No Does the patient take 4 or more prescription medicines? Yes Does the patient use sedatives or narcotics? No Fall Risk Factors Present: Uses more than 4 medications Older than age 70 Iak-Ln-pnk-Go Test: Time began at 0900. Patient stood from sitting position and walked approximately 10 feet, returned and sat down. Total time for pjy-gv-hxo-go test was 13 seconds. Jff-Df-lxd-Go Test completed? Yes Gender Specific Preventative Plan: Health Maintenance Topic Date Due Alb / Creat Ratio Never done LUNG CANCER SCREENING - USE SMARTSET 27361 Never done *BISPHONATE OR OTHER ACCEPTABLE MEDICATION NEEDED FOR OSTEOPOROSIS (REFER TO SMARTSET #1144) Never done DTaP,Tdap,and Td Vaccines (2 - Td or Tdap) 11/12/2018 DXA Scan 06/03/2021 COVID-19 Vaccine (3 - Booster for Moderna series) 09/12/2021 GFR - Renal Function 02/21/2023 CKD HGB USE SMARTSET 13281 08/24/2023 CKD PHOS USE SMARTSET 18754 08/24/2023 Prediabetes-Yearly Hemoglobin A1c 08/24/2023 Depression Screening, Annual for Pts 12 and Over 09/11/2023 O2 ASSESSMENT COMPLETED IN PAST YEAR FOR COPD 09/11/2023 COLONOSCOPY-EVERY 2 YRS AGES 18-100 02/03/2024 Mammogram 08/24/2024 Lipid Panel 08/24/2027 VITAMIN D LEVEL ONCE IN A LIFETIME-USE SMARTSET# 84978 Completed Influenza Vaccine (FLU shot) Completed Zoster Vaccines Completed Pneumococcal Vaccine: 65+ Years Completed Hepatitis B Aged Out MENINGOCOCCAL (MENACTRA/MENVEO) Aged Out GARDASIL-HPV IMMUNIZATION SERIES Aged Out Follow Up/ Referrals/Handouts: Depression screening - Completed Functional assessment - Completed Falls Risk screening - Completed, handout given Exercise screening - Encouraged exercise as able Nutrition assessment -. Education Provided and Handouts Provided Pain screening - No concerns Incontinence screening - Urinary frequency, no new concerns Routine general medical examination at a health care facility (Primary) Need for prophylactic vaccination and inoculation against influenza - INFLUENZA VACC, QUAD, HIGH DOSE (FLUZONE HD) Risk and functional assessment Prediabetes Component Latest Ref Rng & Units 08/24/2022 Hemoglobin A1C 4.0 - 5.6 % 6.3 (H) Estimated Average Glucose <126 mg/dL 134 (H) Continue to monitor and follow with PCP Chronic respiratory failure with hypoxia, on home O2 therapy (HCC) COPD, group A, by GOLD 2017 classification ([facility]) -Med reconciliation completed and compliance discussed. - pt to continue present medications. Continue to monitor and follow with PCP NAFLD (nonalcoholic fatty liver disease) Continue to monitor and follow with PCP Chronic kidney disease, stage 3a (HCC) Continue to monitor and follow with PCP Chronic diastolic heart failure (HCC) Continue to monitor and follow with PCP Patient has been verbally educated on the need or importance of Dexa Scan, Immunizations: Influenza, Shingles, Tetanus and Microalbumin Creatinine Albumin Urine completed today Influenza vaccine given today Patient declines Dexa scan Patient has had both doses of Shingrix vaccine, Verified with pharmacy, Immunization Record updated Tetanus Vaccine recommended- patient made aware to come in and get it if they get an open cut or open wound. Discussed importance of Covid Vaccine: pt has received the vaccine Yes, Patient has had both Covid doses and no boosters. Confirmed in Immunization Record. Follow Up: Return in 1 year (on 09/11/2023) for 12 month Subsequent Adult Wellness Visit. | For: 12month Subsequent Adult Wellness Visit | Check-out note: 12 month Subsequent Adult Wellness Visit Would patient like to schedule next AWV visit? Yes Kate Ferrera RN Urinary Incontinence Plan of Care Documentation: (This education is for all patients over 65 regardless of symptoms) Current medications reconciled. Patient encouraged to: Practice kegal exercises Provide education materials Use the restroom every 2 hours throughout the day Limit caffeine, alcohol, spicy foods and acidic foods Keep a bladder diary Limit fluid intake 3-4 hours before bed Lose weight Prevent constipation Take fluid pills at a time when you can get to the bathroom quickly Control sugar better if diabetic Limit fluid intake to 60 oz. per day Wear support stockings (TEDs)if you have edema Kate Ferrera RN 09/11/2022 documented in this encounter Miscellaneous Notes * Pt Handout (on AVS) - Kate Ferrera RN - 09/11/2022 9:50 AM EDT [id number] Fall Prevention Falls often take place due to slipping, tripping, or losing your balance. Millions of people fall every year and injure themselves. Among older adults in the [place] falls are the most common cause of traumatic brain injuries. Every 20 minutes, an older adult dies from a fall. Here are ways to reduceyour risk of falling again: Think about your fall. Was there anything that caused your fall that can be fixed, removed, or replaced? Make your home safe by keeping walkways clear of objects you may trip over, such as electrical cords. Use nonslip pads under rugs. Don't use area rugs or small throw rugs. Use nonslip mats in bathtubs and showers. Hang grab rails by the toilet and inside and outside the shower. Install handrails and lights on staircases. The handrails should be on both sides of the stairs. Use night lights. Don't walk in poorly lit areas. Don't stand on chairs or wobbly ladders. Use care when reaching overhead or looking up. This position can cause a loss of balance. Be sure your shoes fit well, are in good condition, and have nonslip bottoms. Wear shoes both inside and outside of your home. Don't go barefoot or wear slippers. Be cautious when going up and down stairs, curbs, and when walking on uneven sidewalks. If your balance is poor, consider using a cane or walker. Talk with your healthcare provider about having a balance assessment. If your fall was related to alcohol use, stop or limit alcohol intake. Ask your provider for help if you think you may overuse alcohol and can't stop. If your fall was related to use of sleeping medicines, talk with your provider about this. You may need to reduce your dosage at bedtime if you wake up during the night to go to the bathroom. To reduce the need for nighttime bathroom trips: o Don't drink fluids for several hours before going to bed o Empty your bladder before going to bed o Men can keep a urinal at the bedside Stay as active as you can. Balance, flexibility, strength, and endurance all come from exercise.They all play a role in preventing falls. Ask your provider which types of activity are right for you. Try to do some type of exercise every day. Get your eyes checked once a year or more often if your vision changes If you have pets, know where they are before you stand up or walk so you don't trip over them. Go over all your medicines with a pharmacist or other provider. This is to see if any of them could make you more likely to fall. Have this type of medicine review at least once every year. If your provider advises a new medicine, ask if the side effects will affect your balance. Don't move quickly from one position to another. For instance, don't stand up fast from sitting.This can cause dizziness and may lead to a fall. Sit down when putting on pants, socks, and shoes. This will make you less likely to lose your balance and fall. Always let your provider know if you have fallen since your last visit. Contact your provider right away if you're having balance problems or falling more often. Last Reviewed Date: 12/02/202119997980-1412 [employer]. All rights reserved. This information is not intended as a substitute for professional medical care. Always follow your healthcare professional's instructions. * Pt Handout (on AVS) - Kate Ferrera RN - 09/11/2022 9:50 AM EDT 10418 5 Steps for Eating Healthier Changing the way you eat can improve your health. It can lower your cholesterol and blood pressure,and help you stay at a healthy weight. Your diet doesn?t have to be bland and boring to be healthy.Just watch your calories and follow these steps: Step 1. Eat fewer unhealthy fats Choose more fish and lean meats instead of fatty cuts of meat. Skip butter and lard, and use less margarine. Pass on foods that have palm, coconut, or hydrogenated oils. Eat fewer high-fat dairy foods like cheese, ice cream, and whole milk. Get a heart-healthy cookbook and try some low-fat recipes. Step 2. Go light on salt Keep the saltshaker off the table. Limit high-salt ingredients, such as soy sauce, bouillon, and garlic salt. Instead of adding salt when cooking, season your food with herbs and flavorings. Try lemon, garlic, and onion, or salt-free herb seasonings. Limit convenience foods, such as boxed or canned foods and restaurant food. Read food labels and choose lower-sodium options. Step 3. Limit sugar Pause before you add sugars to pancakes, cereal, coffee, or tea. This includes white and brown table sugar, syrup, honey, and molasses. Cut your usual amount by half. Use non-sugar sweeteners. Stevia, aspartame, and sucralose can satisfy a sweet tooth without adding calories. Swap out sugar-filled soda and other drinks. Buy sugar-free or low-calorie beverages. Remember water is always the best choice. Read labels and choose foods with less added sugar. Keep in mind that dairy foods and foods withfruit will have some natural sugar. Cut the sugar in recipes by 1/3 to 1/2. Boost the flavor with extracts like almond, vanilla, or orange. Or add spices such as cinnamon or nutmeg. Step 4. Eat more fiber Eat fresh fruits and vegetables every day. Boost your diet with whole grains. Go for oats, whole-grain rice, and bran. Add beans and lentils to your meals. Drink more water to match your fiber increase to help prevent constipation. Step 5. Pay attention to serving sizes Remember that a serving size is a standard measurement. It will let you track the amount of fat,calories, and other nutrients in the food you eat. Read the Nutrition Facts label on packaged foods to learn their serving sizes. Use serving sizes to assess how much food you put on your plate. Pay attention to your portions.How many servings are you eating? Keep in mind that your needs may change if you?re more active or less active, or if you have other factors that change your calorie needs. Use your hand to help you measure serving sizes. For example: o 1 teaspoon: This is about the size of the first joint of your thumb. o 1 tablespoon: This is about the size of the first 2 joints of your thumb. o 1 ounce: This is about what you can fit in your cupped hand. o 2 to 3 ounces: This is about size of the palm of your hand. o cup: This is also about what you can fit in your cupped hand. o 1 cup: This is about the size of your fist. Last Reviewed Date: 06/01/202019999861-1554 [employer]. All rights reserved. This information is not intended as a substitute for professional medical care. Always follow your healthcare professional's instructions. documented in this encounter Plan of Treatment Upcoming Encounters Date Type Specialty Care Team Description 09/10/2023 Office Visit Family Medicine Virgilio Gallegos MD [address] [place] [address] [facility] [address] [place] [facility] [place] [address] Scheduled Procedures Name Priority Associated Diagnoses Date/Ti [...] Additional history exists CKD HGB USE SMARTSET 79110 08/24/202308/24, 11/28/2021, 03/05/2019, Additional history exists CKD PHOS USE SMARTSET 88830 08/24/2023 08/24/2022, 1 01/29/2021 Mammogram 08/24/2023 08/24/2022, [...] D LEVEL ONCE IN A LIFETIME-USE SMARTSET# 91189 Completed 08/24/2022, 08/23/2020, 12/23/2009 GARDASIL-HPV IMMUNIZATION SERIES [...] as of this encounter Visit Diagnoses Diagnosis Routine general medical examination at a health care facility- Primary Need for prophylactic vaccination and inoculation against influenza Risk and functional assessment Screening for unspecified condition Prediabetes Other abnormal glucose Chronic respiratory failure with hypoxia, on home O2 therapy COPD, group A, by GOLD 2017 classification (HCC) NAFLD (nonalcoholic fatty liver disease) Other chronic nonalcoholic liver disease Chronic kidney disease, stage 3a (HCC) Chronic diastolic heart failure (HCC) Chronic diastolic heart failure documented in this encounter Care Teams [employer] Relationship Specialty Start Date End Date Virgilio Gallegos MD [address], [place] [id number] PCP - General Family Medicine 05/08/18 documented as of this encounter
--- OUTSIDE RECORDS SUMMARY | 2023-11-04 08:35 | External Medical Summary ---
Author Name Unknown Address Unknown Organization K01:[facility] [place] [address] [place] [address] Laboratory Report Ordering Provider Test Date Status SHAYAN SIFUENTESOUMOU 09/03/2023 09:42:13 Final Observation Date Value Abnormality Reference (Units ) Status BUN 09/03/2023 09:42:13 14 6-20 (mg/dL) Final Creatinine 09/03/2023 09:42:13 0.9 0.5-1.0 (mg/dL) Final Glomerular filtration rate/1.73 sq M.predicted [Volume Rate/Area] in Serum, Plasma or Blood by Creatinine-based formula (CKD-EPI) 09/03/2023 09:42:13 66 >=60 (mL/min) Final eGFR is calculated based on the CKD-EPI 2020 equation SODIUM 09/03/2023 09:42:13 143 135-146 (m mol/L) Final Potassium 09/03/2023 09:42:13 4.5 3.5-5.1 (m mol/L) Final Cl 09/03/2023 09:42:13 104 98-107 (mm ol/L) Final CO2 09/03/2023 09:42:13 28 22-32 (mmo l/L) Final Anion gap 09/03/2023 09:42:13 11 7-15 (mmol /L) Final Glucose 09/03/2023 09:42:13 99 70-120 (mg /dL) Final Albumin 09/03/2023 09:42:13 4.3 3.8-5.0 (g /dL) Final AST (Aspartate aminotransferase) 09/03/2023 09:42:13 38 Above high normal 10-35 (U/L) Final Result may be falsely elevat ed due to hemolysis. Alk Phos 09/03/2023 09:42:13 95 35-130 (U/ L) Final Bilirubin, Total 09/03/2023 09:42:13 1.4 Above high no rmal <=1.2 (mg/dL) Final Calcium 09/03/2023 09:42:13 9.7 8.4-10.2 ( mg/dL) Final Protein 09/03/2023 09:42:13 6.5 6.0-8.3 (g /dL) Final ALT (Alanine aminotransferase) 09/03/2023 09:42:13 52 Above high normal 10-35 (U/L) Final Performing Location [facility] [place] [address] [facility] [id number]
--- OUTSIDE RECORDS SUMMARY | 2023-11-04 08:35 | External Medical Summary ---
Author Name Unknown Address Unknown Organization K01:[facility] [place] [facility] [address] [place] [address] Laboratory Report Ordering Provider Test Date Status MEL SIFUENTES 09/03/2023 09:42:13 Final Observation Date Value Abnormality Reference (Units ) Status WBC, Total 09/03/2023 09:42:13 5.77 4.00-10.80 (K/uL) Final RBC 09/03/2023 09:42:13 4.71 3.85-5.15 (M/uL) Final Hemoglobin 09/03/2023 09:42:13 15.3 12.0-15.3 (g/dL) Final HCT 09/03/2023 09:42:13 45.2 36.0-45.2 (%) Final MCV 09/03/2023 09:42:13 96.0 81.5-97.5 (fL) Final MCH 09/03/2023 09:42:13 32.5 27.0-34.0 (pg) Final MCHC 09/03/2023 09:42:13 33.8 32.0-36.0 (g/dL) Final RDW 09/03/2023 09:42:13 13.2 11.5-15.5 (%) Final Platelets 09/03/2023 09:42:13 286 140-400 (K/uL) Final MPV 09/03/2023 09:42:13 10.8 6.6-11.1 (fL) Final Nucleated erythrocytes/100 leukocytes [Ratio] in Blood by Automated count 09/03/2023 09:42:13 0 <=0 (/100 WBCs) Final Performing Location [facility] [place] [address] [place] [address]
--- OUTSIDE RECORDS SUMMARY | 2023-11-04 08:35 | External Medical Summary | Summary of Care ---
Author Name Unknown Organization [facility] Address [address] [place] [address] Phone [phone] Care Team Providers Care Inspector And Sorter Name Role Phone Virgilio Gallegos MD Primary Care Provider [phone]- [phone] Reason for Visit * Reason Comments Adult Annual Wellness Visit, Subsequent Visit Encounter Details Date Type Department Care Team Description 09/12/2023 Nurse Only Ancillary Department, [place] [address] [place] [address] [facility] Nurse Annual Wellness [address] [place] [address] Adult Annual Wellness Visit, Subsequent Visit Allergies No known active allergiesdocumented as of this encounter (statuses as of 09/12/2023) Medications Medication Sig Dispensed Refills Start Date End Date Status azithromycin (ZITHROMAX Z-BRIAN) 250 MG TabletIndications:CO PD exacerbation (HCC),Acute sinusitis, recurrence not specified, unspecified location Take two tablets by mouth on first day, then 1 tablet daily until gone 6 Tab 1 12/08/2019 Active Additional Information Patient not taking.Reported on 03/01/2023 Vitamin D 25 MCG (1000 UT) Oral Tablet Take by mouth. 0 Active Benzonatate 100 MG Oral Capsule (Tessalon Perles)Indications:U pper respiratory tract infection, unspecified type Take [...] Additional Information Patient not taking.Reported on 03/01/2023 guaiFENesin-Codeine 100-10 MG/5ML Oral SolutionIndications: COPD exacerbation (HCC) Take 5 mL by mouth 4 times a day as needed for Congestion or Cough. 60 mL 0 10/11/2022 Active Additional Information Patient not taking.Reported on 03/01/2023 Atorvastatin Calcium 20 MG Oral Tablet (Lipitor)Indications :Dyslipidemia Take 1 Tablet by mouth in the morning. 90 Tablet 3 09/10/2023 Active Furosemide 20 MG Oral Tablet (Lasix)Indications:C hronic diastolic heart failure (HCC) TAKE ONE TABLET BY MOUTH EVERY DAY NEEDED EDEMA 90 Tablet 3 09/10/2023 Active Potassium Chloride Flaquita ER 20 MEQ Oral Tablet Extended ReleaseIndications:C hronic diastolic heart failure (HCC) TAKE ONE TABLET BY MOUTH EVERY DAY WITH EACH DOSE OF FUROSEMIDE 90 Tablet 3 09/10/2023 Active Trelegy Ellipta 100-62.5-25 MCG/ACT Aerosol Powder Breath Activated (Fluticasone-Umeclid inium-Vilanterol)Ind ications:COPD, moderate (HCC) Inhale 1 Puff by mouth in the morning. 180 Each 3 09/10/2023 Active Albuterol Sulfate HFA 108 (90 Base) MCG/ACT Inhalation Aerosol SolutionIndications: COPD, moderate (HCC) INHALE 2 PUFFS BY MOUTH EVERY 4 HOURS NEEDED WHEEZING 18 g 5 09/10/2023 Active documented as of this encounter (statuses as of 09/12/2023) Active Problems Problem Noted Date COPD, group B, by GOLD 2017 classificati on 11/12/2022 Overview: Per COPD GOLD Classification Chronic respiratory failure with hypoxia , on home O2 therapy 08/24/2021 NAFLD (nonalcoholic fatty liver disease) 09/08/2020 Prediabetes 09/14/2019 Overview: Per Prediabetes protocol Chronic diastolic heart failure 08/12/20 19 History of adenomatous polyp of colon Other osteoporosis without current patho logical fracture 11/01/2005 Overview: ICD-10 update of inactive term documented as of this encounter (statuses as of 09/12/2023) Resolved Problems Problem Noted Date Resolved Date Chronic kidney disease, stage 3a 09/11/2021 09/10/2023 Overview: Per CKD protocol COPD, group A, by GOLD 2017 classification 09/1411/15/2022 Overview: Per COPD GOLD Classification COPD, moderate 12/23/2009 09/16/2019 Menopause 11/12/2008 05/08/2018 Overview: Late 30s documented as of this encounter (statuses as of 09/12/2023) Immunizations Name Administration Dates Next Due COVID-19 mRNA, LNP-s, No Pre serve, 2-Dose Series (Moderna) 07/18/2021,06/20/2021 Pneumococcal Conjugate Vacc, 13 Valent (Prevnar) 09/30/2015 Pneumococcal Polysaccharide PPV23 (Pneumovax) 08/12/2017 SEASONAL INFLUENZA, PF, 6 M & Above, IM , (FLULAVAL or FLUZONE) 08/23/2020,08/25/2019,08/18/2018 Seasonal Influenza, Quadriva lent Hd (Fluzone Hd) 09/10/2023,09/11/2022 Seasonal Influenza, Quadriva lent, No Preserve, IM 09/30/2015 Seasonal Influenza, Split, I IV3, With Preserve, Inj 08/12/2017 TD, Preservative Free 03/01/2023 TDAP (age 11 and older)(Adacel) 11/12/2008 Zoster Vaccine Recombinant (Shingrix) 05/25/2022 ,02/15/2022 documented as of this encounter Social History Tobacco Use Types Packs/Day Years Used Date Smoking Tobacco: Former Cigarettes 0.8 40 Q uit: 10/02/2007 Smokeless Tobacco: Never Tobacco Cessation:Counseling Given: Not Answered Alcohol Use Standard Drinks/Week Comments No 0 [...] Sign Reading Time Taken Comments Blood Pressure 124/70 09/12/2023 9:16 AM EDT Pulse 60 09/12/2023 9:16 AM EDT Temperature 36.3 C (97.3 F) 09/12/2023 9:16 AM ED T Respiratory Rate - - Oxygen Saturation 91% 09/12/2023 9:16 AM EDT O2 2l/NC Inhaled Oxygen Concentration - - Weight 95.7 kg (211 lb) 09/12/2023 9:16 AM EDT Height 160 cm (5' 3") 09/12/2023 9:16 AM EDT Body Mass Index 37.38 09/12/2023 9:16 AM EDT documented in this encounter Patient Instructions * Patient Instructions* Kate Ferrera RN - 09/12/2023 9:37 AM EDT Hi Ms. Cotter, As your primary care [...] Due: Health Maintenance Due Topic Date Due Alpha-1 Antitrypsin Never done *BISPHONATE OR OTHER ACCEPTABLE MEDICATION NEEDED FOR OSTEOPOROSIS (REFER TO SMARTSET #1146) Never done DXA Scan 06/03/2021 COVID-19 Vaccine () 08/02/2023 Mammogram 08/24/2023 Depression Screening 09/11/2023 Current Medication List: (as of Visit date not found (in office), Visit date not found (telemedicine) ) Current Outpatient Medications Medication Sig Dispense Refill Vitamin D 25 MCG (1000 UT) Oral Tablet Take by mouth. Atorvastatin Calcium 20 MG Oral Tablet (Lipitor) Take 1 Tablet by mouth in the morning. 90 Tablet 3 Furosemide 20 MG Oral Tablet (Lasix) TAKE ONE TABLET BY MOUTH EVERY DAY NEEDED EDEMA 90 Tablet 3 Potassium Chloride Flaquita ER 20 MEQ Oral Tablet Extended Release TAKE ONE TABLET BY MOUTH EVERY DAY WITH EACH DOSE OF FUROSEMIDE 90 Tablet 3 Trelegy Ellipta 100-62.5-25 MCG/ACT Aerosol Powder Breath Activated (Wobtwlgkket-Jjnkiyrnrilf-Sbzllehwbf) Inhale 1 Puff by mouth in the morning. 180 Each 3 azithromycin (ZITHROMAX Z-BRIAN) 250 MG Tablet Take two tablets by mouth on first day, then 1 tablet daily until gone (Patient not taking: Reported on 08/13/2022) 6 Tab 1 Benzonatate 100 MG Oral Capsule (Tessalon Perles) Take 1 Cap by mouth 3 times a day as needed for Cough. (Patient not taking: Reported on 08/13/2022) 30 Cap 1 predniSONE 10 MG Oral Tablet (Deltasone) Take 5 tabs for 2 days, 4 tabs for 2 days, 3 tabs for 2 days, 2 tabs for 2 days 1 tab for 2 days (Patient not taking: Reported on 03/01/2023) 30 Tablet 0 guaiFENesin-Codeine 100-10 MG/5ML Oral Solution Take 5 mL by mouth 4 times a day as needed for Congestion or Cough. (Patient not taking: Reported on 03/01/2023) 60 mL 0 Albuterol Sulfate HFA 108 (90 Base) MCG/ACT Inhalation Aerosol Solution INHALE 2 PUFFS BY MOUTHEVERY 4 HOURS NEEDED WHEEZING 18 g 5 No current facility-administered medications for this visit. Current List of Allergies: (as of Visit date not found (in office), Visit date not found (telemedicine) ) Review of patient's allergies indicates: No Known Allergies Most Recent Lab Results: Results for orders placed or performed in visit on 09/03/23 CBC Result Value Ref Range WBC 5.77 4.00 - 10.80 K/uL RBC 4.71 3.85 - 5.15 M/uL HGB 15.3 12.0 - 15.3 g/dL HCT 45.2 36.0 - 45.2 % MCV 96.0 81.5 - 97.5 fL MCH 32.5 27.0 - 34.0 pg MCHC 33.8 32.0 - 36.0 g/dL RDW 13.2 11.5 - 15.5 % PLT 286 140 - 400 K/uL MPV 10.8 6.6 - 11.1 fL nRBCs 0 <=0 /100 WBCs PHOSPHORUS Result Value Ref Range Phosphorus 3.0 2.5 - 4.8 mg/dL COMPREHENSIVE METABOLIC PANEL Result Value Ref Range BUN 14 6 - 20 mg/dL Creatinine 0.9 0.5 - 1.0 mg/dL Estimated Glomerular Filtration Rate 66 >=60 mL/min Sodium 143 135 - 146 mmol/L Potassium 4.5 3.5 - 5.1 mmol/L Chloride 104 98 - 107 mmol/L CO2 28 22 - 32 mmol/L Anion Gap 11 7 - 15 mmol/L Glucose 99 70 - 120 mg/dL Albumin 4.3 3.8 - 5.0 g/dL AST 38 (H) 10 - 35 U/L Alkaline Phosphatase 95 35 - 130 U/L Bilirubin, Total 1.4 (H) <=1.2 mg/dL Calcium 9.7 8.4 - 10.2 mg/dL Protein 6.5 6.0 - 8.3 g/dL ALT 52 (H) 10 - 35 U/L Sincerely, Virgilio Gallegos MD 09/12/2023 [facility] Calendar (as of Visit date not found (in office), Visit date not found (telemedicine) ) Care needs Care needs Last completed Due next Alpha-1 Antitrypsin --- Never done Discuss medication for ostoporosis --- Never done Bone Density 06/03/2019 06/03/2021 COVID-19 Vaccine ( season) 2021 08/02/2023 Mammogram 08/24/2022 08/24/2023 Colonoscopy - every 2 years 02/02/2022 02/03/2024 A1C blood sugar test 03/01/2023 03/01/2024 Yearly COPD oxygen test 09/10/2023 09/10/2024 Lipid (cholesterol) disorder screening 08/24/2022 08/24/2027 Diphtheria, tetanus & pertussis vaccines (3 - Td or Tdap) 03/01/2023 03/01/2033 As you look over the recommended services, be sure to check with your insurance company to determine what's covered. [employer] is a great tool that helps you review your medical record online, including test results, doctor notes and your health summary. You can also schedule appointments with me and other members of your care team, request prescription refills and ask for advice related to your medical conditions at [email or web address]. documented in this encounter Progress Notes * Kate Ferrera RN - 09/12/2023 9:20 AM EDT AD8 Dementia Screening Interview Person answering questions: [...] Annual Wellness Visit: Elida Cotter is a 73 year old female who presents for an [...] Good Ht Readings from Last 1 Encounters: 09/12/23 1.6 m (5' 3") Wt Readings from Last 1 Encounters: 09/12/23 95.7 kg (211 lb) Body Mass Index: BMI Greater than 30 Body mass index is 37.38 kg/m. BP Readings from Last 1 Encounters: 09/12/23 124/70 Medical/Surgical/Family History Reviewed: Yes Past Medical History: [...] performed by Krunal Real MD at [facility]COPY [facility] COLONOSCOPY, DIAGNOSTIC (RECTUM) 02/15/2017 adenomatous polyps, inflammation on bx, repeat 1 yr/[facility] COLONOSCOPY, DIAGNOSTIC (RECTUM) 06/10/2018 serrated adenomatous polyp, diverticulosis, repeat 1 yr/[facility] COLONOSCOPY, DIAGNOSTIC (RECTUM) 07/08/2019 adenomatous polyp, repeat 2 yrs/[facility] COLONOSCOPY, DIAGNOSTIC (RECTUM) 02/02/2022 benign adenomatous polyps, repeat 2 yrs / [facility] LIGATE/CUT OVIDUCT(S) 1980 Family History Problem Relation Age of Onset Cancer Mother Colon CA Cancer Sister Lung CA Cancer Sister Leukemia Has patient ever had cancer? No Social History Tobacco Use Smoking status: Former Packs/day: 0.75 Years: 40.00 Pack years: 30.00 Types: Cigarettes Quit date: 10/02/2007 Years since quittin.9 Smokeless tobacco: Never Substance Use Topics Alcohol use: No Vaping/E-Cigarette Use Vaping/E-Cigarette Use Never User Vaping/E-Cigarette Substances Vaping/E-Cigarette Devices Tobacco/Alcohol screening completed today? Yes Hospital Care: Admissions (within the last year): Not Applicable ER within 30 days: No Does the patient have an Advance Directives/Living Will? No. Does the patient want information? Yes. Information given to patient Last Physical Exam: Last physical exam: 09/2023 Does patient see primary provider regularly? Yes Does patient see other providers? Yes, Specialist Patient Care Team updated? Yes Review of patient's allergies indicates: No Known Allergies Immunization History Administered Date(s) Administered COVID-19 mRNA, LNP-s, No Preserve, 2-Dose Series (Moderna) 06/20/2021, 07/18/2021 Pneumococcal Conjugate Vacc, 13 Valent (Prevnar) 09/30/2015 Pneumococcal Polysaccharide PPV23 (Pneumovax) 08/12/2017 SEASONAL INFLUENZA, PF, 6 M & Above, IM , (FLULAVAL or FLUZONE) 08/18/2018, 08/25/2019, 08/23/2020 Seasonal Influenza, Quadrivalent Hd (Fluzone Hd) 09/11/2022, 09/10/2023 Seasonal Influenza, Quadrivalent, No Preserve, IM 09/30/2015 Seasonal Influenza, Split, IIV3, With Preserve, Inj 08/12/2017 TD, Preservative Free 03/01/2023 TDAP (age 11 and older)(Adacel) 11/12/2008 Zoster Vaccine Recombinant (Shingrix) 02/15/2022, 05/25/2022 Current Outpatient Medications Medication Sig Dispense Refill Vitamin D 25 MCG (1000 UT) Oral Tablet Take by mouth. Atorvastatin Calcium 20 MG Oral Tablet (Lipitor) Take 1 Tablet by mouth in the morning. 90 Tablet 3 Furosemide 20 MG Oral Tablet (Lasix) TAKE ONE TABLET BY MOUTH EVERY DAY NEEDED EDEMA 90 Tablet 3 Potassium Chloride Flaquita ER 20 MEQ Oral Tablet Extended Release TAKE ONE TABLET BY MOUTH EVERY DAY WITH EACH DOSE OF FUROSEMIDE 90 Tablet 3 Trelegy Ellipta 100-62.5-25 MCG/ACT Aerosol Powder Breath Activated (Comiyzadsni-Augrbsjekyqw-Bheddzdtpu) Inhale 1 Puff by mouth in the morning. 180 Each 3 azithromycin (ZITHROMAX Z-BRIAN) 250 MG Tablet Take two tablets by mouth on first day, then 1 tablet daily until gone (Patient not taking: Reported on 08/13/2022) 6 Tab 1 Benzonatate 100 MG Oral Capsule (Tessalon Perles) Take 1 Cap by mouth 3 times a day as needed for Cough. (Patient not taking: Reported on 08/13/2022) 30 Cap 1 predniSONE 10 MG Oral Tablet (Deltasone) Take 5 tabs for 2 days, 4 tabs for 2 days, 3 tabs for 2 days, 2 tabs for 2 days 1 tab for 2 days (Patient not taking: Reported on 03/01/2023) 30 Tablet 0 guaiFENesin-Codeine 100-10 MG/5ML Oral Solution Take 5 mL by mouth 4 times a day as needed for Congestion or Cough. (Patient not taking: Reported on 03/01/2023) 60 mL 0 Albuterol Sulfate HFA 108 (90 Base) MCG/ACT Inhalation Aerosol Solution INHALE 2 PUFFS BY MOUTH EVERY 4 HOURS NEEDED WHEEZING 18 g 5 No current facility-administered medications for this visit. Patient Active Problem List Diagnosis Code Other osteoporosis without current pathological fracture M81.8 History of adenomatous polyp of colon Z86.010 Chronic diastolic heart failure (HCC) I50.32 Prediabetes R73.03 NAFLD (nonalcoholic fatty liver disease) K76.0 Chronic respiratory failure with hypoxia, on home O2 therapy J96.11, Z99.81 COPD, group B, by GOLD 2017 classification ([facility]) J44.9 Medication Compliance: Patient is able to obtain [...] No Exercise Screening: does not exercise regularly, walking at stores several days per week Nutrition Assessment: Eats a balanced diet and Eats two meals a day Pain Screening: Are you having any pain? No Sleep Screening Tool 'STOP': Do you snore? No Do you feel fatigued during the day? No Do you wake up feeling like you haven't slept? No Have you been told you stop breathing at night? No Do you gasp for air or choke while sleeping? No Have you been told you have Sleep Apnea? No Do you have high blood pressure or are on medication(s) to control high blood pressure? No SCORE: If you check YES to two or more questions, make a referral for Obstructive Sleep Apnea Patient and Caregiver Support System: Patient lives with a spouse Means of Transportation: Drives. Not a concern. Patient lives in [place] Community Resources: [id number] Functional Status and ADL Skills: Has patient ever had an amputation? No Functional Assessment: 100- Normal, no complaints, no evidence of disease Ambulation: Patient ambulates without assistive [...] bladder Feeding: Self Bathing: Self; tub, grab bars, shower seat, mat to step out onto Requires none assistance with ADLs. Instrumental ADL's: Shopping: Independent Housekeeping: Independent Handling Finances: Independent DME Vendor Name: Mirna stauffer Fall Risk Assessment: Can the patient demonstrate [...] than 4 medications Older than age 70 Met-Kd-agg-Go Test: Time began at 0900. Patient stood from sitting position and walked approximately 10 feet, returned and sat down. Total time for cjp-xv-rra-go test was 12 seconds. Cic-Mz-aks-Go Test completed? Yes Gender Specific Preventative Plan: Health Maintenance Topic Date Due Alpha-1 Antitrypsin Never done *BISPHONATE OR OTHER ACCEPTABLE MEDICATION NEEDED FOR OSTEOPOROSIS (REFER TO SMARTSET #1146) Never done DXA Scan 06/03/2021 COVID-19 Vaccine (3 - 2023-24 season) 2023 Mammogram 08/24/2023 Depression Screening 09/11/2023 COLONOSCOPY-EVERY 2 YRS AGES 18-100 02/03/2024 HbA1c 03/01/2024 O2 ASSESSMENT COMPLETED IN PAST YEAR FOR COPD 09/10/2024 Lipid Panel 08/24/2027 DTaP,Tdap,and Td Vaccines (3 - Td or Tdap) 03/01/2033 VITAMIN D LEVEL ONCE IN A LIFETIME-USE SMARTSET# [id number] Completed Influenza Vaccine (FLU shot) Completed Zoster Vaccines Completed Pneumococcal Vaccine: 65+ Years Completed Hepatitis B Aged Out MENINGOCOCCAL (MENACTRA/MENVEO) Aged Out GARDASIL-HPV IMMUNIZATION SERIES Aged Out Albumin/Creatinine Ratio Discontinued Follow Up/ Referrals/Handouts: Depression screening - Completed Functional assessment - Completed Falls Risk screening - Completed, handout given Exercise screening - Encouraged to continue walking, be active as able Nutrition assessment -. Education Provided and Handouts Provided Pain screening - No concerns Incontinence screening - Urinary incontinence, no new concerns Routine general medical examination at a health care facility (Primary) Prediabetes Component Latest Ref Rng 03/01/2023 Hemoglobin A1C 4.0 - 5.6 % 5.9 (H) Estimated Average Glucose <126 mg/dL 123 Continue to monitor and follow with PCP COPD, group B, by GOLD 2017 classification (HCC) Chronic respiratory failure with hypoxia, on home O2 therapy -Med reconciliation completed and compliance discussed. - pt to continue present medications. Continue to monitor and follow with Pulmonary Chronic diastolic heart failure (HCC) -Med reconciliation completed and compliance discussed. - pt to continue present medications. Continue to monitor and follow with PCP NAFLD (nonalcoholic fatty liver disease) Continue to monitor and follow with PCP Patient has been verbally educated on the need or importance of Dexa Scan and Immunizations: Influenza Dexa scan - patient declined today Influenza vaccine - Patient has already received Discussed importance of Covid Vaccine: pt has received the vaccine Yes, Patient has received both doses of Covid vaccine and no boosters. Confirmed in Immunization record. Would patient like to schedule next AWV visit? Yes Kate Ferrera, RN documented in this encounter Miscellaneous Notes * Pt Handout (not on AVS) - Kate Ferrera, BRYCE - 09/12/2023 9:40 AM EDT [id number] Fall Prevention Falls often take place due [...] or falling more often. Last Reviewed Date: 12/02/202119994377-1621 [employer]. All rights reserved. This information is not intended as a substitute for professional medical care. Always follow your healthcare professional's instructions. * Pt Handout (not on AVS) - Kate Ferrera RN - 09/12/2023 9:40 AM EDT Images from the original note were not included. [id number] Steps for Eating Healthier Changing the [...] butter and lard, and use less margarine. Replace these with healthier fats, such as olive, canola, or avocado oils. Pass on foods that have palm, coconut, or partially hydrogenated oils. Eat fewer high-fat dairy foods like cheese, ice cream, and whole milk. Get a heart-healthy cookbook and try some new recipes. Step 2. Go light on salt Keep the saltshaker off the table. Limit high-salt ingredients, such as soy sauce, bouillon, and garlic salt. Instead of adding salt when cooking, season your food with herbs, spices, and other flavorings. Try lemon, garlic, onion, vinegar, or salt-free herb seasonings. Limit convenience foods, such as boxed or canned foods and restaurant food. Read food labels and choose lower-sodium options. Buy fresh, frozen, or canned vegetables that don't have added salt. Step 3. Limit sugar Pause before you add sugars to pancakes, cereal, coffee, or tea. This includes white and brown table sugar, syrup, honey, and molasses. Cut your usual amount by half. Swap out sugar-filled soda and other drinks. Buy sugar-free or low-calorie beverages. Remember, water is always the best choice. Try adding lemon juice to water for extra flavor. Read labels and choose foods with less added sugar. Keep in mind that dairy foods and foods withfruit will have some natural sugar. Cut the sugar in recipes by 1/3 to 1/2. Boost the flavor with extracts like almond, vanilla, ororange. Or add spices such as cinnamon or [...] 2 to 3 ounces: This is about the size of the palm of your hand. o cup: This is also about what you can fit in your cupped hand. o 1 cup: This is about the size of your fist. Last Reviewed Date: 11/01/202219994845-5132 [employer]. All rights reserved. This information is not intended as a substitute for professional medical care. Always follow your healthcare professional's instructions. documented in this encounter Plan of Treatment Upcoming Encounters Date Type Specialty Care Team Description 03/12/2024 Office Visit Family Medicine Virgilio Gallegos MD [address], [place] [phone] 10/05/2024 Nurse Only Ancillary [place], Nurse Annual Wellness [address] [facility] [place] [id number] Scheduled Procedures Name Priority Associated Diagnoses Date/Ti me COLONOSCOPY FLEXIBLE PROXIMAL DIAGNOSTIC Recall History of colon polyps Health Maintenance Due Date Last Done Comments Alpha-1 Antitrypsin 1968 *BISPHONATE OR OTHER ACCEPTABLE MEDICATION NEEDED FOR OSTEOPOROSIS (REFER TO SMARTSET #1146) 09/07/2015 DXA Scan 06/03/2021 06/03/2019, 09/01, 04/07/2012, Additional history exists COVID-19 Vaccine ( season) 2023 07/18/2021, 06/20/2021 Mammogram 08/24/2023 08/24/2022, 08/03, 06/03/2019, Additional history exists Depression Screening 09/11/2023 09/12/2023 COLONOSCOPY-EVERY 2 YRS AGES 18-100 02/03/2024 02/02/2022, 07/08/2019, 06/10/2018, Additional history exists HbA1c 03/01/2024 03/01/2023, 08/03, 11/28/2021, Additional history exists O2 ASSESSMENT COMPLETED IN PAST YEAR FOR COPD 09/10/2024 09/12/2023 Lipid Panel 08/24/2027 08/24/2022, 11/02, 08/24/2021, Additional history exists DTaP,Tdap,and Td Vaccines (3 - Td or Tdap) 03/01/2033 03/01/2023, 11/12/2008 Pneumococcal Vaccine: 65+ Years Completed 08/12/2017, 09/30/2015 Zoster Vaccines Completed 05/25/2022, 02/15/2022 VITAMIN D LEVEL ONCE IN A LIFETIME-USE SMARTSET# 91154 Completed 08/24/2022, 08/23/2020, 12/23/2009 Albumin/Creatinine Ratio Discontinued 09/11/2022 Influenza Vaccine (FLU shot) Completed 09/10/2023, 09/11/2022, 08/23/2020, Additional history exists GARDASIL-HPV IMMUNIZATION SERIES Aged Out No longer [...] examination at a health care facility- Primary Prediabetes Other abnormal glucose COPD, group B, by GOLD 2017 classification (HCC) Chronic respiratory failure with hypoxia, on home O2 therapy Chronic diastolic heart failure (HCC) Chronic diastolic heart failure NAFLD (nonalcoholic fatty liver disease) Other chronic nonalcoholic liver disease documented in this encounter Care Teams Inspector And Sorter Relationship Specialty Start Date End Date Virgilio Gallegos MD [address] [place] [address] PCP - General Family Medicine 05/08/18 documented as of this encounter
--- OUTSIDE RECORDS SUMMARY | 2023-11-04 08:35 | External Medical Summary | Summary of Care ---
Author Name Unknown Organization [facility] Address [address] [place] [address] Phone [phone] Care Team Providers Care Stone Lathe Operator Name Role Phone Virgilio Gallegos MD Primary Care Provider [phone]- [phone] Reason for Visit * Reason Onset Date Comments Medication Administration 09/11/2022 Flu an d/or Pneumo Inj Adult Annual Wellness Visit, Subsequent Visit Encounter Details Date Type Department Care Team Description 09/11/2022 Nurse Only Ancillary Department, [facility] [address] [place] [address] [place], [facility] [address] [place] [address] Medication Administration (Flu and/or Pneu... Allergies No known active allergiesdocumented as of [...] Active Benzonatate 100 MG Oral Capsule (Tessalon Perles)Indication s:Upper respiratory tract infection, unspecified type Take [...] days 1 Each 1 1 09/11/20 22 Discontinued(Me dication List Clean Up) Potassium Chloride Flaquita ER 20 MEQ Oral Tablet Extended ReleaseIndication [...] gone.. 20 Capsule 0 2 09/11/20 22 Discontinued(Me dication List Clean Up) documented as of [...] 10 times. Repeat this throughout the day. [employer] Patient Education Copyright 2009 - 2010 [employer] except where otherwise noted. Preventing Falls: Moving [...] even more effective. [employer] Patient Education Copyright 2008 - 2010 [...] done LUNG CANCER SCREENING - USE SMARTSET 52425 Never done Zoster Vaccines (1 of 2) [...] Ellipta 100-62.5-25 MCG/INH Aerosol Powder Breath Activated (Zttddjzcjqb-Sfhxhjbawhcg-Imgpdnlurl) INHALE 1 PUFF BY MOUTH DAILY. 180 [...] >19 ng/mL Sincerely, Virgilio Gallegos MD 09/11/2022 [facility] Calendar (as of Visit date not [...] your insurance company to determine what's covered. [email or web address] is a great tool that helps you review your medical record online, including test results, doctor notes and your health summary. You can also schedule appointments with me and other members of your care team, request prescription refills and ask for advice related to your medical conditions at [email or web address]. documented in this encounter Progress Notes * Kate Ferrera RN - 09/11/2022 9:18 AM EDT PRE - ADMINISTRATION DOCUMENTATION Are you experiencing any cold symptoms or fever? No Have you had Guillain-Islesford Syndrome (an illness that causes paralysis) within [...] performed by Krunal Real MD at [facility] COLONOSCOPY, DIAGNOSTIC (RECTUM) 02/15/2017 adenomatous polyps, inflammation on bx, repeat 1 yr/[facility] COLONOSCOPY, DIAGNOSTIC (RECTUM) 06/10/2018 serrated adenomatous polyp, diverticulosis, repeat 1 yr/[facility] COLONOSCOPY, DIAGNOSTIC (RECTUM) 07/08/2019 adenomatous polyp, repeat 2 yrs/[facility] COLONOSCOPY, DIAGNOSTIC (RECTUM) 02/02/2022 benign adenomatous polyps, repeat 2 yrs / [facility] LIGATE/CUT OVIDUCT(S) 1981 Family History Problem Relation Age of Onset [...] Ellipta 100-62.5-25 MCG/INH Aerosol Powder Breath Activated (Ztjbbjiwjaa-Zfdnnarhufuc-Mexknluysf) INHALE 1 PUFF BY MOUTH DAILY. 180 [...] of colon Z86.010 Chronic diastolic heart failure ([facility]) I50.32 COPD, group A, by GOLD 2017 classification ([facility]) J44.9 Prediabetes R73.03 NAFLD (nonalcoholic fatty liver disease) K76.0 Chronic respiratory failure with hypoxia, on home O2 therapy ([facility]) J96.11, Z99.81 Chronic kidney disease, stage 3a ([facility]) N18.31 Medication Compliance: Patient is able to [...] than 4 medications Older than age 70 Vqr-Kr-wdh-Go Test: Time began at 0900. Patient stood from sitting position and walked approximately 10 feet, returned and sat down. Total time for zay-ha-pnp-go test was 13 seconds. Nwc-Ay-pdh-Go Test completed? Yes Gender Specific Preventative Plan: Health Maintenance Topic Date Due Alb / Creat Ratio Never done LUNG CANCER SCREENING - USE SMARTSET 73315 Never done *BISPHONATE OR OTHER ACCEPTABLE MEDICATION NEEDED FOR OSTEOPOROSIS (REFER TO SMARTSET #1142) Never done DTaP,Tdap,and Td Vaccines (2 - Td or Tdap) 11/12/2018 DXA Scan 06/03/2021 COVID-19 Vaccine (3 - Booster for Moderna series) 09/12/2021 GFR - Renal Function 02/21/2023 CKD HGB USE SMARTSET 00411 08/24/2023 CKD PHOS USE SMARTSET 60510 08/24/2023 Prediabetes-Yearly Hemoglobin A1c 08/24/2023 Depression Screening, Annual for Pts 12 and Over 09/11/2023 O2 ASSESSMENT COMPLETED IN PAST YEAR FOR COPD 09/11/2023 COLONOSCOPY-EVERY 2 YRS AGES 18-100 02/03/2024 Mammogram 08/24/2024 Lipid Panel 08/24/2027 VITAMIN D LEVEL ONCE IN A LIFETIME-USE SMARTSET# 50667 Completed Influenza Vaccine (FLU shot) Completed Zoster [...] COPD, group A, by GOLD 2017 classification ([facility]) -Med reconciliation completed and compliance discussed. - [...] Ferrera RN - 09/11/2022 9:50 AM EDT [id number] Fall Prevention Falls often take place due [...] or falling more often. Last Reviewed Date: 12/02/202119996062-6962 [employer]. All rights reserved. This information is not intended as a substitute for professional medical care. Always follow your healthcare professional's instructions. * Pt Handout (on AVS) - Kate Ferrera RN - 09/11/2022 9:50 AM EDT 75850 5 Steps for Eating Healthier Changing the [...] size of your fist. Last Reviewed Date: 06/01/202019999877-3467 [employer]. All rights reserved. This information is not intended as a substitute for professional medical care. Always follow your healthcare professional's instructions. documented in this encounter Plan of Treatment Upcoming Encounters Date Type Specialty Care Team Description 09/10/2023 Office Visit Family Medicine Virgilio Gallegos MD [address] [place] [facility] [place] [address] 09/12/2023 Nurse Only Ancillary Nurse [facility] [address] [place] [facility] [place] [address] Scheduled Procedures Name Priority Associated Diagnoses Date/Ti [...] Additional history exists CKD HGB USE SMARTSET 03158 08/24/202308/24, 11/28/2021, 03/05/2019, Additional history exists CKD PHOS USE SMARTSET 42855 08/24/2023 08/24/2022, 1 01/29/2021 Mammogram 08/24/2023 08/24/2022, [...] D LEVEL ONCE IN A LIFETIME-USE SMARTSET# 62973 Completed 08/24/2022, 08/23/2020, 12/23/2009 GARDASIL-HPV IMMUNIZATION SERIES [...] failure documented in this encounter Care Teams Stone Lathe Operator Relationship Specialty Start Date End Date Virgilio Gallegos MD [address] [place] [address] [phone] PCP - General Family Medicine 05/08/18 documented as of this encounter
--- OUTSIDE RECORDS SUMMARY | 2023-11-04 08:35 | External Medical Summary ---
Author Name Unknown Address Unknown Organization K01:[facility] [address] [place] [address] Laboratory Report Ordering Provider Test Date Status MEL SIFUENTES 09/03/2023 09:42:13 Final Observation Date Value Abnormality Reference (Units ) Status Phosphate 09/03/2023 09:42:13 3.0 2.5-4.8 (m g/dL) Final Performing Location [facility] [address] [place] [address]
--- OUTSIDE RECORDS SUMMARY | 2023-11-04 08:35 | External Medical Summary | Summary of Care ---
Author Name Unknown Organization [facility] Address [address] [place] [address] Phone [phone] Care Team Providers Care Research Associate Molecular Biology Name Role Phone Virgilio Gallegos MD Primary Care Provider +1- [phone] Reason for Visit * Reason Comments Outpatient Testing Encounter Details Date Type Department Care Team Description 09/03/2023 Laboratory Laboratory, [place] [address] [place] [address] [place] [address] [place] [address] Chronic kidney disease, unspecified CKD stage Allergies No known active allergiesdocumented as of this encounter (statuses as of 09/03/2023) Medications Medication Sig Dispensed Refills Start Date [...] as of this encounter (statuses as of 09/03/2023) Active Problems Problem Noted Date COPD, group [...] as of this encounter (statuses as of 09/03/2023) Resolved Problems Problem Noted Date Resolved Date COPD, group A, by GOLD 2017 classification 09/1411/15/2022 Overview: Per COPD GOLD Classification COPD, moderate 12/23/2009 09/16/2019 Menopause 11/12/2008 05/08/2018 Overview: Late 30s documented as of this encounter (statuses as of 09/03/2023) Immunizations Name Administration Dates Next Due COVID-19 [...] on file documented as of this encounter Plan of Treatment Upcoming Encounters Date Type Specialty Care Team Description 09/10/2023 Office Visit Family Medicine Virgilio Gallegos MD [address] [place] [facility] [place] [address] 09/12/2023 Nurse Only Ancillary [place] [address] [facility] [address] Pending Results Name Type Priority Associated Diagnoses Date /Time CBC Lab Routine Chronic kidney disease, unspecified CKD stage 09/03/2023 9:42 AM EDT PHOSPHORUS Lab Routine Chronic kidney disease, unspecified CKD stage 09/03/2023 9:42 AM EDT COMPREHENSIVE METABOLIC PANEL Lab Routine Chronic kidney disease, unspecified CKD stage 09/03/2023 9:42 AM EDT Scheduled Procedures Name Priority Associated Diagnoses Date/Ti me COLONOSCOPY FLEXIBLE PROXIMAL DIAGNOSTIC Recall History of colon polyps Health Maintenance Due Date Last Done Comments Alpha-1 Antitrypsin 1968 *BISPHONATE OR OTHER ACCEPTABLE MEDICATION NEEDED FOR OSTEOPOROSIS (REFER TO SMARTSET #1146) 09/07/2015 DXA Scan 06/03/2021 06/03/2019, 09/01, 04/07/2012, Additional history exists COVID-19 Vaccine ( season) 2023 07/18/2021, 06/20/2021 Influenza Vaccine (FLU shot) (#1) 2023 09/11/2022, 08/23/2020, 08/25/2019, Additional history exists CKD HGB USE SMARTSET 94637 08/24/202308/24, 11/28/2021, 03/05/2019, Additional history exists CKD PHOS USE SMARTSET 67649 08/24/2023 08/24/2022, 1 01/29/2021 Mammogram 08/24/2023 08/24/2022, [...] D LEVEL ONCE IN A LIFETIME-USE SMARTSET# 42763 Completed 08/24/2022, 08/23/2020, 12/23/2009 GARDASIL-HPV IMMUNIZATION SERIES [...] Diagnoses Diagnosis Chronic kidney disease, unspecified CKD stage documented in this encounter Care Teams Research Associate Molecular Biology Relationship Specialty Start Date End Date Virgilio Gallegos MD [address] [place] [address] PCP - General Family Medicine 05/08/18 documented as of this encounter
--- OUTSIDE RECORDS SUMMARY | 2023-11-04 08:35 | External Medical Summary | Summary of Care ---
Author Name Unknown Organization [facility] Address [address] [place] [address] Phone [phone] Care Team Providers Care Information Systems Project Manager Name Role Phone Virgilio Gallegos MD Primary Care Provider [phone] Reason for Visit * Reason Onset Date Comments Status Check Medication Administration 09/10/2023 Flu an d/or Pneumo Inj Encounter Details Date Type Department Care Team Description 09/10/2023 Office Visit [facility] [address] [place] [address] Virgilio Gallegos MD [address] [place] [address] Prediabetes*; Risk and functional assessment; Need for prophylactic vaccination and inoculation against influenza; Dyslipidemia; Chronic diastolic heart failure (HCC); COPD, moderate (HCC); Chronic respiratory failure with hypoxia, on home O2 therapy ; COPD, group B, by GOLD 2017 classification (HCC); NAFLD (nonalcoholic fatty liver disease) Allergies No known active allergiesdocumented as of this encounter (statuses as of 09/10/2023) Medications Medication Sig Dispensed Refills Start Date End Date Status azithromycin (ZITHROMAX Z-BRIAN) 250 MG TabletIndications: COPD exacerbation (HCC),Acute sinusitis, recurrence not specified, unspecified location Take two tablets by mouth on first day, then 1 tablet daily until gone 6 Tab 1 12/08/2019 Active Additional Information Patient not taking.Reported on 03/01/2023 Vitamin D 25 MCG (1000 UT) Oral Tablet Take by mouth. 0 Active Benzonatate 100 MG Oral Capsule ([place])Indications :Upper respiratory tract infection, unspecified type Take 1 Cap by mouth 3 times a day as needed for Cough. 30 Cap 1 03/21/2021 Active Additional Information Patient not taking.Reported on 03/01/2023 predniSONE 10 MG Oral Tablet (Deltasone)Indicat ions:COPD exacerbation (HCC) Take 5 tabs for 2 days, 4 tabs for 2 days, 3 tabs for 2 days, 2 tabs for 2 days 1 tab for 2 days 30 Tablet 0 08/13/2022 Active Additional Information Patient not taking.Reported on 03/01/2023 guaiFENesin-Codein e 100-10 MG/5ML Oral SolutionIndication s:COPD exacerbation (HCC) Take 5 mL by mouth 4 times a day as needed for Congestion or Cough. 60 mL 0 10/11/2022 Active Additional Information Patient not taking.Reported on 03/01/2023 Atorvastatin Calcium 20 MG Oral Tablet (Lipitor)Indicatio ns:Dyslipidemia Take 1 Tablet by mouth in the morning. 90 Tablet 3 09/10/2023 Active Furosemide 20 MG Oral Tablet (Lasix)Indications :Chronic diastolic heart failure (HCC) TAKE ONE TABLET BY MOUTH EVERY DAY NEEDED EDEMA 90 Tablet 3 09/10/2023 Active Potassium Chloride Flaquita ER 20 MEQ Oral Tablet Extended ReleaseIndications :Chronic diastolic heart failure (HCC) TAKE ONE TABLET BY MOUTH EVERY DAY WITH EACH DOSE OF FUROSEMIDE 90 Tablet 3 09/10/2023 Active Trelegy Ellipta 100-62.5-25 MCG/ACT Aerosol Powder Breath Activated (Fluticasone-Umecl idinium-Vilanterol )Indications:COPD, moderate (HCC) Inhale 1 Puff by mouth in the morning. 180 Each 3 09/10/2023 Active Albuterol Sulfate HFA 108 (90 Base) MCG/ACT Inhalation Aerosol SolutionIndication s:COPD, moderate (HCC) INHALE 2 PUFFS BY MOUTH EVERY 4 HOURS NEEDED WHEEZING 18 g 5 09/10/2023 Active Albuterol Sulfate HFA 108 (90 Base) MCG/ACT Inhalation Aerosol SolutionIndication s:COPD, moderate (HCC) INHALE 2 PUFFS BY MOUTH EVERY 4 HOURS NEEDED WHEEZING 18 g 5 08/23/2020 3 Discontinue d(Refill) Trelegy Ellipta 100-62.5-25 MCG/INH Aerosol Powder Breath Activated (Fluticasone-Umecl idinium-Vilanterol )Indications:COPD, moderate (HCC) INHALE 1 PUFF BY MOUTH DAILY. 180 Each 3 08/16/2022 3 Discontinue d(Refill) Furosemide 20 MG Oral Tablet (Lasix)Indications :Chronic diastolic heart failure (HCC) TAKE ONE TABLET BY MOUTH EVERY DAY NEEDED EDEMA 90 Tablet 0 02/13/2023 3 Discontinue d(Refill) Atorvastatin Calcium 20 MG Oral Tablet (Lipitor)Indicatio ns:Dyslipidemia TAKE ONE TABLET BY MOUTH DAILY. 90 Tablet 0 02/13/2023 3 Discontinue d(Refill) Potassium Chloride Flaquita ER 20 MEQ Oral Tablet Extended ReleaseIndications :Chronic diastolic heart failure (HCC) TAKE ONE TABLET BY MOUTH EVERY DAY WITH EACH DOSE OF FUROSEMIDE 90 Tablet 0 02/13/2023 3 Discontinue d(Refill) documented as of this encounter (statuses as of 09/10/2023) Active Problems Problem Noted Date COPD, group [...] as of this encounter (statuses as of 09/10/2023) Resolved Problems Problem Noted Date Resolved Date Chronic kidney disease, stage 3a 09/11/2021 09/10/2023 Overview: Per CKD protocol COPD, group A, by GOLD 2017 classification 09/1411/15/2022 Overview: Per COPD GOLD Classification COPD, moderate 12/23/2009 09/16/2019 Menopause 11/12/2008 05/08/2018 Overview: Late 30s documented as of this encounter (statuses as of 09/10/2023) Immunizations Name Administration Dates Next Due COVID-19 [...] Sign Reading Time Taken Comments Blood Pressure 126/76 09/10/2023 8:20 AM EDT Pulse 54 09/10/2023 8:20 AM EDT Temperature 37.2 C (98.9 F) 09/10/2023 8:20 AM ED T Respiratory Rate 18 09/10/2023 8:20 AM EDT Oxygen Saturation 93% 09/10/2023 8:20 AM EDT 2L/min Inhaled Oxygen Concentration - - Weight 95.3 kg (210 lb) 09/10/2023 8:20 AM EDT Height 161.3 cm (5' 3.5") 09/10/2023 8:20 AM EDT Body Mass Index 36.62 09/10/2023 8:20 AM EDT documented in this encounter Patient Instructions * Patient Instructions* Aleena Back LPN - 09/10/2023 8:22 AM EDT Patient Instructions - Fall Prevention (This education [...] 10 times. Repeat this throughout the day. [employer] Patient Education Copyright 2008 [employer] except where otherwise noted. Preventing Falls: Moving [...] side, hold the cane on that side. Get your balance. Move the cane and your weaker leg forward. Support your weight on both the cane and your weaker side. Step with your stronger leg. Start again from step 1. If youre using a folding walker, be sure you know how to lock it open. Check that its locked open before each use. Using a Walker Roll the walker (or lift it, if youre using one without wheels) forward about 12 inches. Step forward with your weaker leg first. Use the walker to help keep your balance. Bring your other foot forward to the center of the walker. Start again from step 1. Helpful Tips [...] that mean climbing, even on a stepstool. [employer] Patient Education Copyright 2008 [employer] except where otherwise noted. Urinary Incontinence Plan [...] Wear support stockings (TEDs)if you have edema Aleena Back LPN 09/10/2023 Kegel Exercises Kegel exercises dont require special [...] please feel free to contact our office. documented in this encounter Progress Notes * Virgilio Gallegos MD - 09/10/2023 8:54 AM EDT Subjective: Elida Cotter is a 73 year old female here today for Chief Complaint Patient presents with Status Check Medication Administration Flu and/or Pneumo Inj Patient presents for routine recheck. She reports that her breathing has been stable since last visit 6 months ago. She uses 2 liters of oxygen via nasal cannula during the day and 3 liters at nighttime. No recent ER visits or hospitalizations. No recent exacerbations. She is agreeable to the influenza vaccination today. She is aware that she can get a COVID booster and an RSV vaccination at the pharmacy. Reviewed most recent labs. Kidney function has been good the last 2 checks. She does have a concern about a feeling of dry eyes. She has been seeing her eye doctor. She is wondering if her furosemide may be contributing. She has been taking it daily and not just as needed. She has a baseline stable level of peripheral edema. Past Medical History: Diagnosis Date Benign neoplasm [...] performed by Krunal Real MD at [facility] COLONOSCOPY, DIAGNOSTIC (RECTUM) 02/15/2017 adenomatous polyps, inflammation on bx, repeat 1 yr/[facility] COLONOSCOPY, DIAGNOSTIC (RECTUM) 06/10/2018 serrated adenomatous polyp, diverticulosis, repeat 1 yr/[facility] COLONOSCOPY, DIAGNOSTIC (RECTUM) 07/08/2019 adenomatous polyp, repeat 2 yrs/[facility] COLONOSCOPY, DIAGNOSTIC (RECTUM) 02/02/2022 benign adenomatous polyps, repeat 2 yrs / [facility] LIGATE/CUT OVIDUCT(S) 1980 Review of patient's allergies indicates: No Known Allergies Current Outpatient Medications Medication Sig Dispense Refill [...] Ellipta 100-62.5-25 MCG/ACT Aerosol Powder Breath Activated (Fgkrzwolnxb-Xzsuehjebrtg-Avgtohhqta) Inhale 1 Puff by mouth in the morning. 180 Each 3 Albuterol Sulfate HFA 108 (90 Base) MCG/ACT Inhalation Aerosol Solution INHALE 2 PUFFS BY MOUTH EVERY 4 HOURS NEEDED WHEEZING 18 g 5 azithromycin (ZITHROMAX Z-BRIAN) 250 MG Tablet Take [...] taking: Reported on 03/01/2023) 60 mL 0 No current facility-administered medications for this visit. Objective: BP 126/76 | Pulse 54 | Temp 37.2 C (98.9 F) (Infrared ) | Resp 18 | Ht 1.613 m (5' 3.5") | Wt 95.3 kg (210 lb) | SpO2 93% Comment: 2L/min | BMI 36.62 kg/m | BSA 2.07 m GEN: NAD HEENT: Benign NECK: Supple with no LAD, TM, JVD CHEST: CTA B CV: RRR ABD: Soft, NT/ND, No HSM, NABS EXT: No c,c,e Assessment and Plan: Prediabetes (Primary) - COMPREHENSIVE METABOLIC PANEL; Future; Expected date: 09/10/2023 - ALBUMIN / CREATININE RATIO, URINE; Future; Expected date: 09/10/2023 - HEMOGLOBIN A1C; Future; Expected date: 09/10/2023 -continue to monitor labs, recheck with next visit Risk and functional assessment Need for prophylactic vaccination and inoculation against influenza - INFLUENZA VACC, QUAD, HIGH DOSE (FLUZONE HD) -aware of vaccinations for COVID-19 and RSV at pharmacy Dyslipidemia - LIPID PANEL WITH DIRECT LDL IF TG IS HIGH; Future; Expected date: 09/10/2023 - COMPREHENSIVE METABOLIC PANEL; Future; Expected date: 09/10/2023 - Atorvastatin Calcium 20 MG Oral Tablet (Lipitor); Take 1 Tablet by mouth in the morning. Chronic diastolic heart failure (HCC) - Furosemide 20 MG Oral Tablet (Lasix); TAKE ONE TABLET BY MOUTH EVERY DAY NEEDED EDEMA - Potassium Chloride Flaquita ER 20 MEQ Oral Tablet Extended Release; TAKE ONE TABLET BY MOUTH EVERY DAY WITH EACH DOSE OF FUROSEMIDE -she has some stable, chronic peripheral edema. She can decrease use of furosemide and watch her weights daily and monitor her level of edema. Goal would be to see if it helps her eye symptoms. COPD, moderate (HCC) - Trelegy Ellipta 100-62.5-25 MCG/ACT Aerosol Powder Breath Activated (Xbeoodvjxdv-Eviwtcsugkew-Charqikdhs); Inhale 1 Puff by mouth in the morning. - Albuterol Sulfate HFA 108 (90 Base) MCG/ACT Inhalation Aerosol Solution; INHALE 2 PUFFS BY MOUTH EVERY 4 HOURS NEEDED WHEEZING Chronic respiratory failure with hypoxia, on home O2 therapy COPD, group B, by GOLD 2017 classification (HCC) -continue current treatments and supplemental oxygen via nasal cannula NAFLD (nonalcoholic fatty liver disease) -continue to monitor labs Follow Up: Return in about 6 months (around 03/11/2024) for recheck. | For: recheck 34 min with pt and documentation Virgilio Gallegos MD * Aleena Back LPN - 09/10/2023 8:24 AM EDT PRE - ADMINISTRATION DOCUMENTATION Are you experiencing any cold symptoms or fever? No Have you had Guillain-Hoffman Syndrome (an illness that causes paralysis) within the last 6 weeks? No Have you had the flu shot in the past? YES Have you ever had a reaction to the flu shot? No Aleena Back LPN, 09/10/2023 8:24 AM Immunization Administration Documentation Time Out Procedure Performed: Yes Patient Identified (Ask Name/Date of ): Yes Does the patient have a fever greater than 101 degrees today? No Patient allergic to latex? No VFC Stock: No Immunization(s) verified: Yes, Immunization Name: Flu, VIS Sheet(s) given: Yes Verified Side and Site: Yes Verified Shot(s) with Parent(s)/Patient: Yes documented in this encounter Nursing Notes * Aleena Back LPN - 09/10/2023 8:20 AM EDT The patient has been properly identified by confirmation of name and date of . Chief Complaint Patient presents with Status Check Return visit documented in this encounter Plan of Treatment Upcoming Encounters Date Type Specialty Care Team Description 09/12/2023 Nurse Only [facility], Nurse [facility] [address] [place] [facility] [place] [address] 03/12/2024 Office Visit Family Medicine Virgilio Gallegos [facility] [address] [facility] [place] [address] Scheduled Orders Name Type Priority Associated Diagnoses Orde r Schedule LIPID PANEL WITH DIRECT LDL IF TG IS HIGH Lab Routine Dyslipidemia Expected: 09/10/2023, Expires: 09/10/2024 COMPREHENSIVE METABOLIC PANEL Lab Routine Dyslipidemia Prediabetes Expected: 09/10/2023 (Approximate), Expires: 09/09/2024 ALBUMIN / CREATININE RATIO, URINE Lab Routine Prediabetes Expected: 09/10/2023 (Approximate), Expires: 09/09/2024 HEMOGLOBIN A1C Lab Routine Prediabetes Expected: 09/10/2023 (Approximate), Expires: 09/09/2024 Scheduled Procedures Name Priority Associated Diagnoses Date/Ti [...] 06/03/2019, Additional history exists Depression Screening 09/11/2023 09/11/2022 COLONOSCOPY-EVERY 2 YRS [...] D LEVEL ONCE IN A LIFETIME-USE SMARTSET# [id number] Completed 08/24/2022, 08/23/2020, 12/23/2009 Albumin/Creatinine Ratio Discontinued [...] as of this encounter Visit Diagnoses Diagnosis Prediabetes- Primary Other abnormal glucose Risk and functional assessment Screening for unspecified condition Need for prophylactic vaccination and inoculation against influenza Dyslipidemia Other and unspecified hyperlipidemia Chronic diastolic heart failure (HCC) Chronic diastolic heart failure COPD, moderate (HCC) Chronic airway obstruction, not elsewhere classified Chronic respiratory failure with hypoxia, on home O2 therapy COPD, group B, by GOLD 2017 classification (HCC) NAFLD (nonalcoholic fatty liver disease) Other chronic nonalcoholic liver disease documented in this encounter Care Teams Information Systems Project Manager Relationship Specialty Start Date End Date Virgilio Gallegos MD [address] [place] [address] PCP - General Family Medicine 05/08/18 documented as of this encounter
--- NOTE | 2023-11-04 08:52 | XRay Report ---
XR chest 1V portable HISTORY: Dyspnea COMPARISON: Chest 12/03/2019. FINDINGS: No pneumothorax. No pleural effusions. The heart remains mildly enlarged. Emphysema again n oted. Interstitial thickening at the lung bases has slightly progressed. The upper lung zones remain clear. No evidence for pulmonary edema. IMPRESSION: Emphysema with bibasilar interstitial thickening. This has progressed. This could be due to vascular crowding from the emphysema. A superimposed interstitial pneumonitis would be difficult to exclude. ACT 112: Negative or not required by law. Electronically signed by: Melvin Vergara M.D. 11/04/2023 8:50 AM
[2023-11-04 08:56] LABS: Hematocrit (blood only) 43.2 % (37.0-47.0); Hemoglobin 15.3 g/dl (12.0-16.0); Mean Corpuscular Hemoglobin 32.1 pg (25.0-34.0); Mean Corpuscular Hgb Conc 35.4 g/dL (32.0-36.0); Mean Corpuscular Volume 90.6 fL (80.0-100.0); Mean Platelet Volume 10.5 fL (9.4-12.4); Platelet Count 272 K/uL (130-400); RDW Coefficient of Variation 13.2 % (11.5-14.5); RDW Standard Deviation 43.8 fL (36.4-46.3); Red Blood Count 4.77 M/uL (4.20-5.40); White Blood Count 17.09 K/ul (4.8-10.8)
[2023-11-04] MEDS ORDERED: methylPREDNISolone 125 MG/2 ML VIAL IV STA (09:02)
[2023-11-04 09:09] LABS: Partial Thromboplastin Time 28.8 Seconds (21.0-31.0); Prothrombin Time 10.9 Seconds (9.0-12.0)
[2023-11-04 09:20] LABS: Basophils # (auto) 0.05 K/uL (0.00-0.20); Basophils % (auto) 0.3 %; Immature Granulocytes # (auto) 0.09 K/uL (0.01-0.20); Immature Granulocytes % (auto) 0.5 %; Lymphocytes # (auto) 0.32 K/uL (1.20-3.40); Lymphocytes % (auto) 1.9 %; Monocytes # (auto) 0.74 K/uL (0.11-0.59); Monocytes % (auto) 4.3 %; Neutrophils # (auto) 15.89 K/uL (1.40-6.50)
[2023-11-04 09:28] LABS: Albumin Globulin Ratio 1.6 (0.9-2); Albumin Level 4.1 gm/dl (3.4-5.0); BUN Creatinine Ratio 21.7 (10-20); Bilirubin,Total 1.8 mg/dl (0.2-1.0); Calcium 9.9 mg/dl (8.6-10.3); Creatinine Clr Calc Pharmacy 63.3 ml/min; Est GFR (African American) 71.6 ml/min; Est GFR (Non-African American) 61.8 ml/min; Globulin 2.6 gm/dl (2.5-4.0); Magnesium 1.5 mg/dl (1.7-2.4); Potassium 4.2 mmol/L (3.5-5.1); Total Protein 6.7 gm/dl (6.0-8.3)
[2023-11-04 09:33] LABS: Troponin I High Sensitivity 14.1 pg/ml (0-14)
--- NOTE | 2023-11-04 09:42 | History & Physical Report ---
Date of Service November 04, 2023 Assessment & Plan (1) COPD exacerbation: Plan: This is a 73 y/o female with chronic hypoxic respiratory failure (home O2 at 2L daytime, 3L HS), COPD, prediabetes (last A1c on 03/01/23 was 5.9), chronic diastolic HF, osteoporosis and other history as listed who presents to the ED with increased cough and worsening hypoxia that started overnight with sats on baseline oxygen as low as the 70s at home. Pt started her rescue kit this morning but due to the increased oxygen demand and low sats, she decided to present to the ED for evaluation. Work-up in the ED included a negative viral respiratory panel, CXR with progression of bibasilar interstitial thickening, EKG without acute change, troponin <20. Clinically, no evidence of significant volume overload. Prior pulmonology notes reviewed - per Dr. Reyes's last note, target pulseox is 88% or greater. - Admit to PCU - Continue oxygen titrated to maintain sats 88% of greater based on pulm recommendations outpatient - SoluMedrol 40 mg IV Q8 hrs - Continue doxycycline that pt started from her rescue kit - DuoNebs QID scheduled, and prn - Flutter valve/IS - Mucinex 600 mg BID scheduled, Guaifenesin DM prn for cough - Repeat troponin later today since minimally elevated in ED - low probability of cardiac etiology at this time - AM labs - CBC, BMP, LFTs, Mg - Check A1c in AM due to history of prediabetes, steroid use (2) Hypomagnesemia: Plan: Mg in the ED was 1.5 - ED provider ordered 2 g of mag sulfate. Will recheck in the AM (3) Chronic respiratory failure with hypoxia, on home O2 therapy: Plan: Baseline O2 requirement is 2L in the daytime, 3L at night (4) Prediabetes: Plan: Last A1c on 03/01/23 was 5.9 Plan Continue other home medications as appropriate. Pt seen and reviewed with collaborating physician, Dr. Slaughter. Plan of care discussed and as outlined above. Code Status: DNI but would like other measures attempted though no prolonged efforts DVT Prophylaxis: Lovenoantolin Stephenson PA-C History of Present Illness Chief Complaint: Worsening respiratory symptoms Primary Care Provider: Virgilio Gallegos MD This is a 73 y/o female with chronic hypoxic respiratory failure (home O2 at 2L daytime, 3L HS), COPD, prediabetes (last A1c on 03/01/23 was 5.9), chronic diastolic HF, osteoporosis and other history as listed who presents to the ED with increased cough and worsening hypoxia that started overnight. Sats at home were 75-88% since 1:30 am today so she decided to come to the ED for evaluation. Cough is intermittently productive of brown to clear mucus. Chest feels tight but no dyspnea at rest or chest pain. Last night, she got SOB when she went to the bathroom, which is not her baseline. No episodes of aspiration or choking episodes. Started her rescue kit of prednisone and doxycycline this morning. Used home cough medicine with codeine this AM with some relief. No increased peripheral edema. Denies N/V/D, abdominal pain. Had flu and COVID vaccine. Scheduled to see Dr. Reyes next month - last visit in Dec 2021. Pt has not been using albuterol inhaler, does not have a home nebulizer. Allergies Allergy/AdvReac Type Severity Reaction Status Date / Time No Known Allergies Allergy Verified 11/04/23 10:00 Home Medications Medication Instructions Recorded Confirmed Type albuterol sulfate 90 mcg/actuation 2 - 4 puff inhalation BID 10/13/18 11/04/23 History aerosol inhaler (Ventolin HFA) Over Night Pulse OX #1 ea 09/01/19 11/04/23 Rx Oxygen Home #1 ea 09/18/19 11/04/23 Rx cholecalciferol (vitamin D3) 25 25 mcg PO QAM 11/01/20 11/04/23 History mcg (1,000 unit) capsule atorvastatin 20 mg tablet 20 mg PO QAM 12/22/21 11/04/23 History fluticasone fur. 100 mcg-umeclid 1 inh inhalation QAM 01/29/22 11/04/23 History 62.5 mcg-vilant 25 mcg inhalat.powder (Trelegy Ellipta) furosemide 20 mg tablet 20 mg PO QAM PRN swelling 01/29/22 11/04/23 History potassium chloride 20 mEq 20 meq PO QAM PRN If lasix is taken 01/29/22 11/04/23 History tablet,extended release(part/cryst) codeine 10 mg-guaifenesin 100 mg/5 5 ml PO Q6H PRN Cough 11/04/23 11/04/23 History mL oral liquid prednisone 10 mg tablet See Rx Instructions .Route .COMPLEX 11/04/23 11/04/23 History Past Med/Surg History Medical History NAFLD (nonalcoholic fatty liver disease) Chronic diastolic heart failure Prediabetes Nephrolithiasis Chronic respiratory failure with hypoxia, on home O2 therapy On home oxygen therapy 2L during the day and 3L N/C hs Adenomatous colon polyp Pulmonary hypertension Osteoporosis COPD (chronic obstructive pulmonary disease) Surgical History History of tooth extraction all teeth Hx of colonoscopy with polypectomy 2009, 2010, 2011, 2014, 2016, 2017, 2018, 2021 History of tubal ligation Family History Mother Colon cancer Sister , age 18 Leukemia Sister , age 55 Lung cancer Son Colon cancer Other No family history of adverse response to anesthesia Social History Smoking Status: Former smoker Cigarettes Per Day: 15; Second Hand Exposure: Yes (parents smoked); Do You Dip or Chew Tobacco: No; Hx Alcohol Use: No Hx Substance Use: No Preferred Language: [place] Communication Ability: Effective Visual Impairment: No Limitations Wellness Program Coordinator Required: No Beliefs That Will Affect Care: None marital status: Current Living Situation: Spouse Feels Safe at Home: Yes Assistive Devices: Denture - Upper, Denture - Lower, Glasses and Oxygen - Continuous Review of Systems Review of Systems: All systems reviewed & are unremarkable except as noted in HPI & below Constitutional: no fever and no chills Ear, Nose, Mouth, Throat: no nasal congestion and no sore throat Respiratory: + cough and + dyspnea on exertion Cardiovascular: no chest pain, no palpitations and no syncope Gastrointestinal: no abdominal pain, no nausea, no vomiting and no diarrhea/loose stools Genitourinary: no dysuria and no hematuria Musculoskeletal: no back pain and no neck pain Integumentary: no rash Neurologic: no dizziness and no headache(s) Physical Exam Physical Exam: For details of the physical exam, please see physician addendum. Results & Data Results & Data Vital Signs (Past 12 Hours) Vital Signs Temp Pulse Resp BP Pulse Ox O2 Del Method O2 Flow Rate 11/04/23 09:18 93 Oxymask 5 11/04/23 09:18 94 Oxymask 5 11/04/23 09:16 Oxymask 5 11/04/23 09:10 92 H 20 96 11/04/23 09:00 104 H 17 94 11/04/23 08:50 92 H 16 95 11/04/23 08:40 89 19 96 11/04/23 08:36 92 H 11/04/23 08:30 97 H 16 96 11/04/23 08:26 95 H 21 95 11/04/23 08:26 121/73 11/04/23 08:20 92 Non-rebreather 15 11/04/23 08:17 82 L Nasal Cannula 6 11/04/23 08:15 74 L Nasal Cannula 4 11/04/23 08:12 36.9 C 101 H 22 152/76 H 84 L Nasal Cannula 4 Laboratory Results Laboratory Results - last 24 hr 11/04/23 11/04/23 08:39 08:46 WBC 17.09 H RBC 4.77 Hgb 15.3 Hct 43.2 MCV 90.6 MCH 32.1 MCHC 35.4 RDW Std Deviation 43.8 RDW Coeff of Elvin 13.2 Plt Count 272 MPV 10.5 Immature Gran % (Auto) 0.5 Neut % (Auto) 93.0 Lymph % (Auto) 1.9 Bent % (Auto) 4.3 Eos % (Auto) 0.0 Baso % (Auto) 0.3 Neut # (Auto) 15.89 H Lymph # (Auto) 0.32 L Bent # (Auto) 0.74 H Eos # (Auto) 0.00 Baso # (Auto) 0.05 Immature Gran # (Auto) 0.09 PT 10.9 INR 1.0 APTT 28.8 PTT Ratio 1.0 Sodium 137 Potassium 4.2 Chloride 103 Carbon Dioxide 26 Anion Gap 8 BUN 20 Creatinine 0.92 Est Cr Clr Drug Dosing 63.3 Est GFR ( Amer) 71.6 Est GFR (Non-Af Amer) 61.8 BUN/Creatinine Ratio 21.7 H Glucose 141 H Calcium 9.9 Magnesium 1.5 L Total Bilirubin 1.8 H AST 27 ALT 43 Alkaline Phosphatase 80 Troponin I High Sens 14.1 H Total Protein 6.7 Albumin 4.1 Globulin 2.6 Albumin/Globulin Ratio 1.6 Adenovirus (PCR) Pending B. pertussis DNA (PCR) Pending B.parapertussis DNA PCR Pending C. pneumoniae DNA (PCR) Pending Coronavirus OC43 (PCR) Pending Coronavirus HKU1 (PCR) Pending Coronavirus 229E (PCR) Pending SARS-CoV-2 (PCR) Pending Coronavirus NL63 (PCR) Pending Human Metapneumovir PCR Pending Influenza Type B (PCR) Pending M. pneumoniae (PCR) Pending Parainfluenza 1 (PCR) Pending Parainfluenza 2 (PCR) Pending Parainfluenza 3 (PCR) Pending Parainfluenza 4 (PCR) Pending RSV (PCR) Pending Entero/Rhino (PCR) Pending Diagnostic Findings Chest X-Ray 11/04/23 08:32 XR chest 1V portable HISTORY: Dyspnea COMPARISON: Chest 12/03/2019. FINDINGS: No pneumothorax. No pleural effusions. The heart remains mildly enlarged. Emphysema again noted. Interstitial thickening at the lung bases has slightly progressed. The upper lung zones remain clear. No evidence for pulmonary edema. IMPRESSION: Emphysema with bibasilar interstitial thickening. This has progressed. This could be due to vascular crowding from the emphysema. A superimposed interstitial pneumonitis would be difficult to exclude. ACT 112: Negative or not required by law. Electronically signed by: Melvin Vergara M.D. 11/04/2023 8:50 AM Medications Administered Discontinued Medications Albuterol (Albut/Ipratrop 3mg/0.5mg Neb 3 Ml Vial) 3 ml INH NOW STA Stop: 11/04/23 08:33 Last Admin: 11/04/23 08:44 Dose: 3 ml Documented By: DASHAWN Methylprednisolone (Methylprednisolone 125 Mg/2 Ml Vial) 60 mg IV NOW STA Stop: 11/04/23 09:03 Last Admin: 11/04/23 09:16 Dose: 60 mg Documented By: STAS Supervising Physician Co-Signing Physician Notes Patient is a 73-year-old female with history of COPD, chronic respiratory failure with hypoxia 2 L during the day and 3 L at bedtime, hyperlipidemia, diastolic CHF, vitamin D deficiency and other medical problems presents with history of cough with brownish expectoration, dyspnea on exertion since 1 day duration. Patient also noted to have hypoxia high 70s to low 80s this morning and so came to ED for evaluation. She reported associated chest tightness but denies any history of fever, chills, nausea, dizziness, abdominal pain. Also denies any sick contact. States he started her rescue kit with prednisone and doxycycline this morning. Please review HPI for complete details of presentation. Physical Exam: Vitals signs as noted above General Appearance: Obese, no apparent distress Head: normocephalic, Atraumatic Eyes: normal inspection, EOMI Neck: supple, Trachea midline Respiratory/Chest: Decreased breath sounds, scattered wheezes, No accessory muscle use Cardiovascular: S1, S2, No murmur Abdomen/GI:Soft, Non tender, Bowel sounds present Extremities/Musculoskeletal:normal inspection, 1+ B/L LE edema Neurologic/Psych:AAOX3, grossly no focal neurological deficits Skin: normal color, warm Acute on Chronic Respiratory failure with hypoxia Acute COPD Exacerbation Possible Pneumonitis CXR: Emphysema with bibasilar interstitial thickening. This has progressed. This could be due to vascular crowding from the emphysema. A superimposed interstitial pneumonitis would be difficult to exclude. Respiratory Panel: Negative Had received COVID/Flu Vaccine Procalcitonin elevated Started on doxycycline, Rocephin, Solu-Medrol, nebs Continue home inhalers Pulmonary hygiene with flutter, Mucinex, incentive spirometry Continue supplemental oxygen to keep saturation 88 to 92% Consider pulmonary evaluation if no improvement Hypomagnesemia Replete electrolytes as needed Mild troponin elevation Likely demand ischemia secondary to hypoxia Trend troponin Hyperglycemia Likely secondary to steroids Check HbA1c I personally reviewed the record. Patient is interviewed and examined at bedside. Patient's care is coordinated with Trudy Stephenson PA-C. Please refer to the documentation above for details of patient's presentation and for discussion of other issues.
[2023-11-04 09:47] LABS: Adenovirus PCR Not Detected (NotDetected); Bordetella parapertussis PCR Not Detected (NotDetected); Bordetella pertussis PCR Not Detected (NotDetected); Chlamydia pneumoniae PCR Not Detected (NotDetected); Coronavirus 229E PCR Not Detected (NotDetected); Coronavirus CoV-2 (COVID19)PCR Not Detected (NotDetected); Coronavirus HKU1 PCR Not Detected (NotDetected); Coronavirus NL63 PCR Not Detected (NotDetected); Coronavirus OC43PCR Not Detected (NotDetected); Human Metapneumovirus PCR Not Detected (NotDetected); Influenza A PCR Not Detected (NotDetected); Influenza B PCR Not Detected (NotDetected); Mycoplasma pneumoniae PCR Not Detected (NotDetected); Parainfluenza Virus 1 PCR Not Detected (NotDetected); Parainfluenza Virus 2 PCR Not Detected (NotDetected); Parainfluenza Virus 3 PCR Not Detected (NotDetected); Parainfluenza Virus 4 PCR Not Detected (NotDetected); Respiratory Syncytial VirusPCR Not Detected (NotDetected); Rhinovirus/Enterovirus PCR Not Detected (NotDetected)
[2023-11-04] MEDS: MAGNESIUM SULFATE / D5W 1 GM/100 ML BAG IV SCH ×2 (10:32→11:06)
--- NOTE | 2023-11-04 12:03 | Emergency Department Note ---
Impression & Plan Acute hypoxic respiratory failure, Acute exacerbation of chronic obstructive pulmonary disease ED Provider Note CHIEF COMPLAINT: Shortness of breath HISTORY OF PRESENT ILLNESS: This 73-year-old female patient with past medical history of oxygen dependent COPD, chronic diastolic heart failure, pulmonary hypertension presents to the emergency department with complaints of hypoxia. The patient states she monitors her oxygen saturations at home and states it was as low as 75% with her nasal cannula oxygen in place. She denies any fevers but states she is coughing up phlegm. She has been on her "rescue pack" from her primary care physician including prednisone and doxycycline. REVIEW OF SYSTEMS: A review of systems was performed with positives and pertinent negatives listed in the history of present illness. 10 systems were reviewed and are otherwise negative. ALLERGIES: see below MEDICATIONS: see below PMH: see below SOCIAL HISTORY: see below DDx: Reactive airway disease, pneumonia, pneumothorax, COPD, CHF, infections, cardiac ischemia, pulmonary embolism as well as other pathologies. PHYSICAL EXAM: Vital signs reviewed. General: Chronically ill-appearing 73-year-old female, in no significant distress. HEENT: No scleral icterus, PERRLA, neck supple. Moist mucous membranes. Cardiovascular: Regular rate and rhythm, no extra sounds. Pulmonary: Clear to auscultation bilaterally, slightly increased work of breathing on nonrebreather Abdomen: Soft, obese, nontender, nondistended, positive bowel sounds. Musculoskeletal: Atraumatic, no peripheral edema. Neurologic: Patient awake alert and oriented x 3, speech is clear Skin: Warm, dry, no rash EMERGENCY DEPARTMENT COURSE/MDM: This patient was evaluated and appeared to be in no significant distress. IV access was obtained and laboratory work was drawn. The patient was placed on the machine maintenance noted to be in a normal sinus rhythm. Patient's oxygen saturations initially required an oxy mask for support. She did receive a DuoNeb treatment and IV Solu-Medrol. Upper respiratory viral panel is negative. Patient was maintained on 3 L oxy mask with saturations just above 90. Case has been discussed with the hospitalist service who will evaluate the patient for admission and further management. MONITORING: An order for cardiac monitoring was placed and the patient is noted to be in a normal sinus rhythm 87 beats per minute. RADIOLOGY: Chest x-ray to my interpretation reveals COPD with denser interstitial changes at the bilateral lower lung berrios. Otherwise defer to radiology's over read. EKG: To my interpretation reveals normal sinus rhythm at [address] segments. T wave flattening in the anterior lateral leads. No PVC, no PAC. QT interval of 435. When compared to previous dated August 03, 2019, T wave flattening is new. DISPOSITION: Admission Past Med/Surg History Medical History NAFLD (nonalcoholic fatty liver disease) Chronic diastolic heart failure Prediabetes Nephrolithiasis Chronic respiratory failure with hypoxia, on home O2 therapy On home oxygen therapy 2L during the day and 3L N/C hs Adenomatous colon polyp Pulmonary hypertension Osteoporosis COPD (chronic obstructive pulmonary disease) Surgical History History of tooth extraction all teeth Hx of colonoscopy with polypectomy 2009, 2010, 2011, 2014, 2016, 2017, 2018, 2021 History of tubal ligation Family History Mother Colon cancer Sister , age 18 Leukemia Sister , age 55 Lung cancer Son Colon cancer Other No family history of adverse response to anesthesia Social History Smoking Status: Former smoker Cigarettes Per Day: 15; Second Hand Exposure: Yes (parents smoked); Do You Dip or Chew Tobacco: No; Hx Alcohol Use: No Hx Substance Use: No Preferred Language: Syriac Communication Ability: Effective Visual Impairment: No Limitations Hide Stretcher Hand Required: No Beliefs That Will Affect Care: None marital status: Current Living Situation: Spouse Feels Safe at Home: Yes Assistive Devices: Denture - Upper, Denture - Lower, Glasses and Oxygen - Continuous Allergies Allergies Allergy/AdvReac Type Severity Reaction Status Date / Time No Known Allergies Allergy Verified 11/04/23 10:00 Home Meds Home Medications Medication Instructions Recorded Confirmed albuterol sulfate 90 mcg/actuation 2 - 4 puff inhalation BID 10/13/18 11/04/23 aerosol inhaler (Ventolin HFA) cholecalciferol (vitamin D3) 25 25 mcg PO QAM 11/01/20 11/04/23 mcg (1,000 unit) capsule atorvastatin 20 mg tablet 20 mg PO QAM 12/22/21 11/04/23 fluticasone fur. 100 mcg-umeclid 1 inh inhalation QAM 01/29/22 11/04/23 62.5 mcg-vilant 25 mcg inhalat.powder (Trelegy Ellipta) furosemide 20 mg tablet 20 mg PO QAM PRN swelling 01/29/22 11/04/23 potassium chloride 20 mEq 20 meq PO QAM PRN If lasix is taken 01/29/22 11/04/23 tablet,extended release(part/cryst) codeine 10 mg-guaifenesin 100 mg/5 5 ml PO Q6H PRN Cough 11/04/23 11/04/23 mL oral liquid prednisone 10 mg tablet See Rx Instructions .Route .COMPLEX 11/04/23 11/04/23 Previous Rx's Medication Instructions Recorded Over Night Pulse OX #1 ea 09/01/19 Oxygen Home #1 ea 09/18/19 Results & Data (ED) Vital Signs Vital Signs - 24 hr 11/04/23 08:12 11/04/23 08:15 11/04/23 08:17 Temperature 36.9 C Temperature Source Temporal Artery Scan Pulse Rate 101 H Pulse Rate from SpO2 Sensor Respiratory Rate 22 Respiratory Effort / Characteristics Spontaneous Respiratory Pattern Regular Blood Pressure 152/76 H Blood Pressure Mean 101 Blood Pressure Position Sitting Pulse Oximetry 84 L 74 L 82 L Oxygen Delivery Method Nasal Cannula Nasal Cannula Nasal Cannula Oxygen Flow Rate 4 4 6 Sepsis Recent Fever Within 48 Hours No Sepsis New/Unexplained Change in Mental Status No Sepsis Action Taken by Nursing No Action Required 11/04/23 08:20 11/04/23 08:26 11/04/23 08:26 Temperature Temperature Source Pulse Rate 95 H Pulse Rate from SpO2 Sensor 95 H Respiratory Rate 21 Respiratory Effort / Characteristics Respiratory Pattern Blood Pressure 121/73 Blood Pressure Mean 96 Blood Pressure Position Pulse Oximetry 92 95 Oxygen Delivery Method Non-rebreather Oxygen Flow Rate 15 Sepsis Recent Fever Within 48 Hours Sepsis New/Unexplained Change in Mental Status Sepsis Action Taken by Nursing 11/04/23 08:30 11/04/23 08:36 11/04/23 08:40 Temperature Temperature Source Pulse Rate 97 H 92 H 89 Pulse Rate from SpO2 Sensor 98 H 89 Respiratory Rate 16 19 Respiratory Effort / Characteristics Respiratory Pattern Blood Pressure Blood Pressure Mean Blood Pressure Position Pulse Oximetry 96 96 Oxygen Delivery Method Oxygen Flow Rate Sepsis Recent Fever Within 48 Hours Sepsis New/Unexplained Change in Mental Status Sepsis Action Taken by Nursing 11/04/23 08:50 11/04/23 09:00 11/04/23 09:10 Temperature Temperature Source Pulse Rate 92 H 104 H 92 H Pulse Rate from SpO2 Sensor 92 H 96 H 90 Respiratory Rate 16 17 20 Respiratory Effort / Characteristics Respiratory Pattern Blood Pressure Blood Pressure Mean Blood Pressure Position Pulse Oximetry 95 94 96 Oxygen Delivery Method Oxygen Flow Rate Sepsis Recent Fever Within 48 Hours Sepsis New/Unexplained Change in Mental Status Sepsis Action Taken by Nursing 11/04/23 09:16 11/04/23 09:18 11/04/23 09:18 Temperature Temperature Source Pulse Rate Pulse Rate from SpO2 Sensor Respiratory Rate Respiratory Effort / Characteristics Respiratory Pattern Blood Pressure Blood Pressure Mean Blood Pressure Position Pulse Oximetry 94 93 Oxygen Delivery Method Oxymask Oxymask Oxymask Oxygen Flow Rate 5 5 5 Sepsis Recent Fever Within 48 Hours Sepsis New/Unexplained Change in Mental Status Sepsis Action Taken by Nursing 11/04/23 09:20 11/04/23 09:30 11/04/23 09:40 Temperature Temperature Source Pulse Rate 91 H 90 Pulse Rate from SpO2 Sensor 99 H 91 H 90 Respiratory Rate 26 H 23 16 Respiratory Effort / Characteristics Respiratory Pattern Blood Pressure Blood Pressure Mean Blood Pressure Position Pulse Oximetry 93 93 92 Oxygen Delivery Method Oxygen Flow Rate Sepsis Recent Fever Within 48 Hours Sepsis New/Unexplained Change in Mental Status Sepsis Action Taken by Nursing 11/04/23 09:50 11/04/23 10:00 11/04/23 10:10 Temperature Temperature Source Pulse Rate 89 96 H 92 H Pulse Rate from SpO2 Sensor 89 95 H 92 H Respiratory Rate 16 27 H 20 Respiratory Effort / Characteristics Respiratory Pattern Blood Pressure Blood Pressure Mean Blood Pressure Position Pulse Oximetry 91 90 91 Oxygen Delivery Method Oxygen Flow Rate Sepsis Recent Fever Within 48 Hours Sepsis New/Unexplained Change in Mental Status Sepsis Action Taken by Nursing 11/04/23 10:20 11/04/23 10:30 11/04/23 10:33 Temperature Temperature Source Pulse Rate 88 89 87 Pulse Rate from SpO2 Sensor 87 87 88 Respiratory Rate 19 19 18 Respiratory Effort / Characteristics Respiratory Pattern Blood Pressure Blood Pressure Mean Blood Pressure Position Pulse Oximetry 91 91 91 Oxygen Delivery Method Oxygen Flow Rate Sepsis Recent Fever Within 48 Hours Sepsis New/Unexplained Change in Mental Status Sepsis Action Taken by Nursing 11/04/23 10:33 Temperature Temperature Source Pulse Rate Pulse Rate from SpO2 Sensor Respiratory Rate Respiratory Effort / Characteristics Respiratory Pattern Blood Pressure 143/74 H Blood Pressure Mean 97 Blood Pressure Position Pulse Oximetry Oxygen Delivery Method Oxygen Flow Rate Sepsis Recent Fever Within 48 Hours Sepsis New/Unexplained Change in Mental Status Sepsis Action Taken by Skilled Nursing Medications Current Medication List: was personally reviewed by me Laboratory Data Attestation: I reviewed the patient's lab results. 11/04/23 08:39 11/04/23 08:39 Lab Results 11/04/23 11/04/23 Range/Units 08:39 08:46 WBC 17.09 H (4.8-10.8) K/ul RBC 4.77 (4.20-5.40) M/uL Hgb 15.3 (12.0-16.0) g/dl Hct 43.2 (37.0-47.0) % MCV 90.6 (80.0-100.0) fL MCH 32.1 (25.0-34.0) pg MCHC 35.4 (32.0-36.0) g/dL RDW Std Deviation 43.8 (36.4-46.3) fL RDW Coeff of Elvin 13.2 (11.5-14.5) % Plt Count 272 (130-400) K/uL MPV 10.5 (9.4-12.4) fL Immature Gran % (Auto) 0.5 % Neut % (Auto) 93.0 % Lymph % (Auto) 1.9 % Bennett % (Auto) 4.3 % Eos % (Auto) 0.0 % Baso % (Auto) 0.3 % Neut # (Auto) 15.89 H (1.40-6.50) K/uL Lymph # (Auto) 0.32 L (1.20-3.40) K/uL Bennett # (Auto) 0.74 H (0.11-0.59) K/uL Eos # (Auto) 0.00 (0.00-0.50) K/uL Baso # (Auto) 0.05 (0.00-0.20) K/uL Immature Gran # (Auto) 0.09 (0.01-0.20) K/uL PT 10.9 (9.0-12.0) Seconds INR 1.0 (0.9-1.1) APTT 28.8 (21.0-31.0) Seconds PTT Ratio 1.0 Sodium 137 (136-145) mmol/L Potassium 4.2 (3.5-5.1) mmol/L Chloride 103 (98-107) mmol/L Carbon Dioxide 26 (21-32) mmol/L Anion Gap 8 (3-11) BUN 20 (6-23) mg/dl Creatinine 0.92 (0.6-1.2) mg/dl Est Cr Clr Drug Dosing 63.3 ml/min Est GFR ( Amer) 71.6 ml/min Est GFR (Non-Af Amer) 61.8 ml/min BUN/Creatinine Ratio 21.7 H (10-20) Glucose 141 H (70-99(Fasting)) mg/dl Calcium 9.9 (8.6-10.3) mg/dl Magnesium 1.5 L (1.7-2.4) mg/dl Total Bilirubin 1.8 H (0.2-1.0) mg/dl AST 27 (13-39) U/L ALT 43 (7-52) U/L Alkaline Phosphatase 80 (34-104) U/L Troponin I High Sens 14.1 H (0-14) pg/ml Total Protein 6.7 (6.0-8.3) gm/dl Albumin 4.1 (3.4-5.0) gm/dl Globulin 2.6 (2.5-4.0) gm/dl Albumin/Globulin Ratio 1.6 (0.9-2) Procalcitonin 0.92 H (0-0.5) ng/ml Adenovirus (PCR) Not Detected (NotDetected) B. pertussis DNA (PCR) Not Detected (NotDetected) B.parapertussis DNA PCR Not Detected (NotDetected) C. pneumoniae DNA (PCR) Not Detected (NotDetected) Coronavirus OC43 (PCR) Not Detected (NotDetected) Coronavirus HKU1 (PCR) Not Detected (NotDetected) Coronavirus 229E (PCR) Not Detected (NotDetected) SARS-CoV-2 (PCR) Not Detected (NotDetected) Coronavirus NL63 (PCR) Not Detected (NotDetected) Human Metapneumovir PCR Not Detected (NotDetected) Influenza Type A (PCR) Not Detected (NotDetected) Influenza Type B (PCR) Not Detected (NotDetected) M. pneumoniae (PCR) Not Detected (NotDetected) Parainfluenza 1 (PCR) Not Detected (NotDetected) Parainfluenza 2 (PCR) Not Detected (NotDetected) Parainfluenza 3 (PCR) Not Detected (NotDetected) Parainfluenza 4 (PCR) Not Detected (NotDetected) RSV (PCR) Not Detected (NotDetected) Entero/Rhino (PCR) Not Detected (NotDetected) Administered Medications Discontinued Medications Albuterol (Albut/Ipratrop 3mg/0.5mg Neb 3 Ml Vial) 3 ml INH NOW STA Stop: 11/04/23 08:33 Last Admin: 11/04/23 08:44 Dose: 3 ml Documented By: DASHAWN Magnesium Sulfate/Dextrose (Magnesium Sulfate / D5w) 1 gm in 100 mls @ 200 mls/hr IV Q30M JANUSZ Stop: 11/04/23 10:41 Last Admin: 11/04/23 11:06 Dose: 200 mls/hr Documented By: Infusion: 11/04/23 11:05 Dose: Infused Documented By: Admin: 11/04/23 10:32 Dose: 200 mls/hr Documented By: KV Methylprednisolone (Methylprednisolone 125 Mg/2 Ml Vial) 60 mg IV NOW STA Stop: 11/04/23 09:03 Last Admin: 11/04/23 09:16 Dose: 60 mg Documented By: KV Imaging Data Radiologist's Impression: Chest X-Ray 11/04/23 08:32 XR chest 1V portable HISTORY: Dyspnea COMPARISON: Chest 12/03/2019. FINDINGS: No pneumothorax. No pleural effusions. The heart remains mildly enlarged. Emphysema again noted. Interstitial thickening at the lung bases has slightly progressed. The upper lung zones remain clear. No evidence for pulmonary edema. IMPRESSION: Emphysema with bibasilar interstitial thickening. This has progressed. This could be due to vascular crowding from the emphysema. A superimposed interstitial pneumonitis would be difficult to exclude. ACT 112: Negative or not required by law. Electronically signed by: Melvin Vergara M.D. 11/04/2023 8:50 AM Discharge Plan Visit Data Chief Complaint: Shortness of Breath/Dyspnea Stated Complaint: LOW 02 ED Provider: Lexis Espino Discharge Problem: Acute hypoxic respiratory failure, Acute exacerbation of chronic obstructive pulmonary disease Forms Stand Alone Forms: My [facility] Prescriptions Prescriptions: No Action (DME) Oxygen Home Liters Per Minute See Dose Instructions .ROUTE .MEDSUPPLY Qty: 1 0RF Dose Instruction: As directed Rx Instructions: Home oxygen to be used at 3LPM via nasal cannula during sleep; DME=MEDICAL UNDERWRITER (DME) Over Night Pulse OX Misc See Dose Instructions .ROUTE .MEDSUPPLY Qty: 1 0RF Dose Instruction: As directed Rx Instructions: please obtain overnight pulse ox on 2LPM cholecalciferol (vitamin D3) 25 mcg (1,000 unit) capsule 25 mcg PO QAM atorvastatin 20 mg tablet 20 mg PO QAM albuterol sulfate [Ventolin HFA] 90 mcg/actuation Hfa Aerosol Inhaler 2 - 4 puff INHALATION BID prednisone 10 mg Tablet See Rx Instructions .ROUTE .COMPLEX Rx Instructions: 50 mg x 2 days, 40 mg x 2 days, 30 mg x 2 days, 20 mg x 2 days, 10 mg x 2 days codeine-guaifenesin 10-100 mg/5 mL Liquid 5 ml PO Q6H PRN (Reason: Cough) potassium chloride 20 mEq tablet,ER particles/crystals 20 meq PO QAM PRN (Reason: If lasix is taken) furosemide 20 mg tablet 20 mg PO QAM PRN (Reason: swelling) Trelegy Ellipta 100-62.5-25 mcg blister with device 1 inh INH QAM Referrals Referrals: Virgilio Gallegos MD [Primary Care Provider] -
--- NOTE | 2023-11-04 12:48 | Electrocardiogram Report ---
Test Reason : Blood Pressure : / mmHG Vent. Rate : 092 BPM Atrial Rate : 092 BPM P-R Int : 144 ms QRS Dur : 092 ms QT Int : 352 ms P-R-T Axes : 063 036 085 degrees QTc Int : 435 ms Normal sinus rhythm Nonspecific ST and T wave abnormality Abnormal ECG When compared with ECG of 03-AUG-2019 09:25, Vent. rate has increased BY 31 BPM Nonspecific T wave abnormality now evident in Lateral leads Confirmed by Maninder Wong ([id number]) on 11/04/2023 12:48:05 PM Referred By: REFERRED SELF Confirmed By:Maninder Wong
[2023-11-04] MEDS ORDERED: FUROSEMIDE 20 MG TAB PO PRN (13:24)
[2023-11-04] MEDS ORDERED: ACETAMINOPHEN 325 MG TAB PO PRN (13:24)
[2023-11-04] MEDS ORDERED: NON-FORMULARY MEDICATION (Fluticasone-Umeclidin-Vilanter [Trelegy Ellipta] 100-62.5-25 mcg INH SCH (13:24)
[2023-11-04] MEDS ORDERED: guaiFENesin/DEXTROM SYRUP 200MG/20MG 10ML UDC PO PRN (13:24)
[2023-11-04] MEDS ORDERED: cefTRIAXone SODIUM 1,000 MG in DEXTROSE 5 % MINI-B 50 ML IV SCH (13:24)
[2023-11-04] MEDS: ALBUT/IPRATROP 3MG/0.5MG NEB 3 ML VIAL NEB SCH ×3 (15:06→20:43)
[2023-11-04] MEDS: cefTRIAXone SODIUM 2,000 MG in DEXTROSE 5 % MINI-B 50 ML IV SCH (15:21)
[2023-11-04] MEDS: methylPREDNISolone 40 MG in SYRINGE 0 ML IV SCH ×2 (16:20→21:35)
[2023-11-04] MEDS: DOXYCYCLINE HYCLATE 100 MG CAP PO SCH (21:35)
[2023-11-04] MEDS: guaiFENesin 600 MG TABCR PO SCH (21:59)
[2023-11-05] MEDS: methylPREDNISolone 40 MG in SYRINGE 0 ML IV SCH ×3 (05:48→20:06)
[2023-11-05 06:34] LABS: Hematocrit (blood only) 41.6 % (37.0-47.0); Hemoglobin 14.6 g/dl (12.0-16.0); Mean Corpuscular Hemoglobin 31.9 pg (25.0-34.0); Mean Corpuscular Hgb Conc 35.1 g/dL (32.0-36.0); Mean Corpuscular Volume 90.8 fL (80.0-100.0); Platelet Count 237 K/uL (130-400); RDW Coefficient of Variation 13.2 % (11.5-14.5); Red Blood Count 4.58 M/uL (4.20-5.40)
[2023-11-05] MEDS: ALBUT/IPRATROP 3MG/0.5MG NEB 3 ML VIAL NEB SCH ×4 (07:09→19:45)
[2023-11-05 07:14] LABS: Alanine Aminotransferase 33 U/L (7-52); Alkaline Phosphatase 71 U/L (34-104); Anion Gap 8 (3-11); Aspartate Aminotransferase 21 U/L (13-39); BUN Creatinine Ratio 24.2 (10-20); Bilirubin,Total 0.9 mg/dl (0.2-1.0); Blood Urea Nitrogen 22 mg/dl (6-23); Calcium 9.9 mg/dl (8.6-10.3); Carbon Dioxide 26 mmol/L (21-32); Chloride 101 mmol/L (98-107); Creatinine Clr Calc Pharmacy 63.9 ml/min; Est GFR (African American) 72.5 ml/min; Est GFR (Non-African American) 62.6 ml/min; Glucose 173 mg/dl (70-99(Fasting)); Magnesium 2.2 mg/dl (1.7-2.4); Potassium 4.5 mmol/L (3.5-5.1); Sodium 135 mmol/L (136-145); Total Protein 6.6 gm/dl (6.0-8.3)
[2023-11-05 07:23] LABS: Basophils # (auto) 0.02 K/uL (0.00-0.20); Basophils % (auto) 0.1 %; Echinocytes 2+; Immature Granulocytes % (auto) 0.6 %; Lymphocytes # (auto) 0.46 K/uL (1.20-3.40); Lymphocytes % (auto) 2.6 %; Monocytes # (auto) 0.33 K/uL (0.11-0.59); Monocytes % (auto) 1.9 %; Neutrophils # (auto) 16.49 K/uL (1.40-6.50); Neutrophils % (auto) 94.8 %
[2023-11-05 09:07] LABS: Estimated Average Glucose 120 mg/dl; Hemoglobin A1C 5.8 % (4.5-5.6)
[2023-11-05] MEDS: ATORVASTATIN 20 MG TAB PO SCH (09:09)
[2023-11-05] MEDS: ENOXAPARIN INJ 40 MG/0.4 ML SYR SQ SCH (09:11)
[2023-11-05] MEDS: guaiFENesin 600 MG TABCR PO SCH ×2 (09:13→20:06)
[2023-11-05] MEDS: FLUTICASONE FUROATE 100MCG 14 PUFFS/INHALER INH SCH (09:13)
[2023-11-05] MEDS: UMECLIDINIUM/VILANTEROL 62.5/25MCG 7 PUFFS/INHALER INH SCH (09:13)
[2023-11-05] MEDS: CHOLECALCIFEROL 1,000 UNITS 25 MCG TAB PO SCH (09:21)
[2023-11-05] MEDS: DOXYCYCLINE HYCLATE 100 MG CAP PO SCH ×2 (09:21→20:06)
[2023-11-05 09:52] LABS: Toxic Vacuolation 1+
--- NOTE | 2023-11-05 13:25 | Hospitalist Progress Note ---
Date of Service November 05, 2023 Assessment & Plan (1) COPD exacerbation: (2) Hypomagnesemia: (3) Chronic respiratory failure with hypoxia, on home O2 therapy: (4) Prediabetes: (5) Acute hypoxic respiratory failure: Plan This is a 73 y/o female with chronic hypoxic respiratory failure (home O2 at 2L daytime, 3L HS), COPD, prediabetes (last A1c on 03/01/23 was 5.9), chronic diastolic HF, osteoporosis admitted with acute hypoxic respiratory failure. Acute hypoxic Respiratory Failure COPD Exacerbation Presented to the ED with increased cough and worsening hypoxia as low as the 70s at home negative viral respiratory panel CXR with progression of bibasilar interstitial thickening EKG without acute change, hs-troponin elevated to 14.1, downtrended to normal 11.3. Consider echo. Prior pulmonology notes reviewed - per Dr. Reyes's last note, target pulseox is 88% or greater. Continue oxygen titrated to maintain sats 88% of greater based on pulm recommendations outpatient, uses oxygen 2L at home Currently at baseline 2L SoluMedrol 40 mg IV Q8 hrs Continue doxycycline that pt started from her rescue kit DuoNebs QID scheduled, and prn Flutter valve/IS Mucinex 600 mg BID scheduled, Guaifenesin DM prn for cough Consider pulmonology consult Replete electrolytes as needed Continue other home medications as appropriate. Diet: HH Code Status: Per discussion with admitting team, DNI but would like other measures attempted though no prolonged efforts DVT Prophylaxis: Lovenox Dispo: PT/OT ordered Admission and Anticipated Discharge Date Admission Date: November 04, 2023 Subjective Pt was seen in the AM. Sitting comfortably on the bed, working on her phone. States that her symptoms have improved dramatically. Denied acute concerns. Review of Systems Review of Systems: All systems reviewed & are unremarkable except as noted in Subjective Physical Exam Physical Exam: General: Alert, oriented. No acute distress Skin: No noted rashes or bruises Psych: Appropriate mood and affect Neuro: No gross deficits HEENT: NC/AT, NC in nares Chest: Nontender to palpation. CV: RRR Resp: Breath sounds decreased bilaterally, no increased effort of breathing. Abdomen: Soft, nontender, nondistended. Extremities: No edema in lower extremities bilaterally. Results & Data Results & Data Vital Signs (Past 12 Hours) Vital Signs Temp Pulse Resp BP Pulse Ox O2 Del Method O2 Flow Rate 11/05/23 11:32 70 18 90 Nasal Cannula 2 11/05/23 11:16 36.6 C 67 19 112/65 91 Nasal Cannula 2 11/05/23 08:00 Nasal Cannula 2 11/05/23 07:49 36.7 C 80 19 123/61 92 Nasal Cannula 2 11/05/23 07:13 76 18 92 Nasal Cannula 2 11/05/23 03:00 36.5 C 62 18 133/75 89 L Nasal Cannula 4
[2023-11-05] MEDS: cefTRIAXone SODIUM 2,000 MG in DEXTROSE 5 % MINI-B 50 ML IV SCH (14:02)
[2023-11-05 18:19] LABS: Appearance Urine Clear (Clear); Bilirubin Urine Negative (Negative); Blood Urine Negative (Negative); Color Urine Yellow; Glucose Urine UA Negative (Negative); Ketones Urine Negative (Negative); Leukocyte Esterase Urine Negative (Negative); Nitrite Urine Negative (Negative); Protein Urine Negative (Negative); Specific Gravity Urine 1.015 (1.000-1.030); Urobilinogen Urine Negative (Negative); pH Urine 5.5 (4.5-7.5)
[2023-11-05] MEDS ORDERED: COUGH DROP (SUGAR FREE) LOZ 24 LOZ/1 BOX BUCCAL STA (23:35)
[2023-11-06] MEDS: methylPREDNISolone 40 MG in SYRINGE 0 ML IV SCH ×3 (05:35→21:34)
[2023-11-06] MEDS: ALBUT/IPRATROP 3MG/0.5MG NEB 3 ML VIAL NEB SCH ×4 (07:35→21:00)
[2023-11-06] MEDS: ENOXAPARIN INJ 40 MG/0.4 ML SYR SQ SCH (08:31)
[2023-11-06] MEDS: guaiFENesin 600 MG TABCR PO SCH ×2 (08:31→21:34)
[2023-11-06] MEDS: CHOLECALCIFEROL 1,000 UNITS 25 MCG TAB PO SCH (08:31)
[2023-11-06] MEDS: FLUTICASONE FUROATE 100MCG 14 PUFFS/INHALER INH SCH (08:31)
[2023-11-06] MEDS: ATORVASTATIN 20 MG TAB PO SCH (08:31)
[2023-11-06] MEDS: DOXYCYCLINE HYCLATE 100 MG CAP PO SCH ×2 (08:31→21:34)
[2023-11-06] MEDS: UMECLIDINIUM/VILANTEROL 62.5/25MCG 7 PUFFS/INHALER INH SCH (08:31)
[2023-11-06] MEDS: cefTRIAXone SODIUM 2,000 MG in DEXTROSE 5 % MINI-B 50 ML IV SCH (14:08)
--- NOTE | 2023-11-06 15:51 | Hospitalist Progress Note ---
Date of Service November 06, 2023 Assessment & Plan (1) COPD exacerbation: (2) Hypomagnesemia: (3) Chronic respiratory failure with hypoxia, on home O2 therapy: (4) Prediabetes: (5) Acute hypoxic respiratory failure: Plan This is a 73 y/o female with chronic hypoxic respiratory failure (home O2 at 2L daytime, 3L HS), COPD, prediabetes (last A1c on 03/01/23 was 5.9), chronic diastolic HF, osteoporosis admitted with acute hypoxic respiratory failure. Acute hypoxic Respiratory Failure COPD Exacerbation Presented to the ED with increased cough and worsening hypoxia as low as the 70s at home negative viral respiratory panel CXR with progression of bibasilar interstitial thickening EKG without acute change, hs-troponin elevated to 14.1, downtrended to normal 11.3. Consider echo. Prior pulmonology notes reviewed - per Dr. Reyes's last note, target pulseox is 88% or greater. Continue oxygen titrated to maintain sats 88% of greater based on pulm recommendations outpatient, uses oxygen 2L at home Currently at baseline 2L SoluMedrol 40 mg IV Q8 hrs Continue doxycycline that pt started from her rescue kit DuoNebs QID scheduled, and prn Flutter valve/IS Mucinex 600 mg BID scheduled, Guaifenesin DM prn for cough Has been feeling much better-still getting short of breath with exertion and requiring up to 5 L to maintain saturation. She will continue to have the current management and the see if any further improvement of her condition tomorrow If she reaches her baseline by tomorrow she will be discharged home with short course of tapered prednisone and oral doxycycline Replete electrolytes as needed Continue other home medications as appropriate. Diet: HH Code Status: Per discussion with admitting team, DNI but would like other measures attempted though no prolonged efforts DVT Prophylaxis: Lovenox Dispo: PT/OT ordered Admission and Anticipated Discharge Date Admission Date: November 04, 2023 Subjective 11/06/2023 The patient was seen and examined in telemetry unit She remains short of breath at rest and with exertion she has been requiring more than 5 L to maintain saturation Denies any chest pain and/or palpitation Has been ambulating in the room with difficulty Review of Systems Review of Systems: All systems reviewed and are unremarkable except as noted below Physical Exam Physical Exam: Sitting at the edge of the bed with minimal shortness of breath Constitutional: well developed, well nourished, + ill appearing and + obese Eyes: PERRL, conjunctivae normal, anicteric sclerae ENMT: external ear and nose normal, oropharynx normal Neck: trachea midline, no thyromegaly Respiratory: + respiratory distress (Mild to moderate respiratory distress at rest) Auscultation: + diminished lung sounds and + wheezes (At the bases) Cardiovascular: Rate/Rhythm: regular rate and regular rhythm; not tachycardic Heart Sounds: normal S1 and normal S2; no murmur Extremities: + edema (T race edema bilaterally) Gastrointestinal (Abdomen): Inspection/Auscultation: normal bowel sounds; abdomen not distended Percussion/Palpation: abdomen soft; abdomen nontender Musculoskeletal: No acute arthritis involving any of the joint Neurologic: normal touch/pain/proprioception and moves all extremities; no focal motor deficits Psychiatric: A+Ox3, euthymic affect Lymphatic: no cervical or axillary lymphadenopathy Results & Data Results & Data Vital Signs (Past 12 Hours) Vital Signs Temp Pulse Pulse Resp BP Pulse Ox Pulse Ox 11/06/23 15:39 86 18 93 11/06/23 11:49 72 14 88 L 11/06/23 11:45 91 11/06/23 11:24 36.6 C 79 19 131/71 91 11/06/23 10:21 64 11/06/23 07:51 20 94 11/06/23 07:18 36.5 C 57 L 18 132/85 93 11/06/23 07:14 Pulse Ox Pulse Ox O2 Del Method O2 Flow Rate O2 Flow Rate O2 Flow Rate O2 Flow Rate 11/06/23 15:39 Nasal Cannula 2 11/06/23 11:49 Nasal Cannula 2 11/06/23 11:45 91 82 L 2 5 5 11/06/23 11:24 Nasal Cannula 2.0 11/06/23 10:21 11/06/23 07:51 Nasal Cannula 2 11/06/23 07:18 Nasal Cannula 3.0 11/06/23 07:14 Nasal Cannula 2 Laboratory Results Urine 11/05/23 Range/Units 18:00 Urine Color Yellow Urine Appearance Clear (Clear) Urine pH 5.5 (4.5-7.5) Ur Specific [place] 1.015 (1.000-1.030) Urine Protein Negative (Negative) Urine Glucose (UA) Negative (Negative) Medications Administered Current Inpatient Medications Acetaminophen (Acetaminophen 325 Mg Tab) 650 mg PO Q4H PRN PRN Reason: Pain or Fever Stop: 12/04/23 13:23 Albuterol (Albut/Ipratrop 3mg/0.5mg Neb 3 Ml Vial) 3 ml NEB QIDR [facility]; Protocol Stop: 12/04/23 13:23 Last Admin: 11/06/23 15:39 Dose: 3 ml Atorvastatin Calcium (Atorvastatin 20 Mg Tab) 20 mg PO QAM [facility] Stop: 12/05/23 08:59 Last Admin: 11/06/23 08:31 Dose: 20 mg Doxycycline Hyclate (Doxycycline Hyclate 100 Mg Cap) 100 mg PO BID [facility] Stop: 11/11/23 20:59 Last Admin: 11/06/23 08:31 Dose: 100 mg Enoxaparin Sodium (Enoxaparin Inj 40 Mg/0.4 Ml Syr) 40 mg SQ QAM [facility] Stop: 12/05/23 08:59 Last Admin: 11/06/23 08:31 Dose: 40 mg Fluticasone Furoate (Fluticasone Furoate 100mcg 14 Puffs/Inhaler) 1 puffs INH DAILY [facility] Stop: 12/05/23 08:59 Last Admin: 11/06/23 08:31 Dose: 1 puffs Guaifenesin (Guaifenesin 600 Mg Tabcr) 600 mg PO Q12 [facility] Stop: 12/04/23 20:59 Last Admin: 11/06/23 08:31 Dose: 600 mg Guaifenesin/Dextromethorphan (Guaifenesin/Dextrom Syrup 200mg/20mg 10ml Udc) 10 ml PO Q6H PRN PRN Reason: Cough Stop: 12/04/23 13:23 Last Admin: 11/04/23 21:35 Dose: 10 ml Ceftriaxone Sodium 2,000 mg/ (Dextrose) 50 mls @ 100 mls/hr IV Q24H [facility] Stop: 11/11/23 13:59 Last Infusion: 11/06/23 14:38 Dose: Infused Methylprednisolone 40 mg/ (Syringe) 0.64 mls @ 1.5 mls/min IV Q8H [facility] Stop: 12/04/23 13:59 Last Admin: 11/06/23 14:08 Dose: 1.5 mls/min Umeclidinium/Vilanterol (Umeclidinium/Vilanterol 62.5/25mcg 7 Puffs/Inhaler) 1 puffs INH DAILY [facility] Stop: 12/05/23 08:59 Last Admin: 11/06/23 08:31 Dose: 1 puffs Vitamin D (Cholecalciferol 1,000 Units 25 Mcg Tab) 1,000 units PO QAM [facility] Stop: 12/05/23 08:59 Last Admin: 11/06/23 08:31 Dose: 1,000 units
[2023-11-07] MEDS: methylPREDNISolone 40 MG in SYRINGE 0 ML IV SCH ×3 (05:45→21:23)
[2023-11-07 06:31] LABS: Hematocrit (blood only) 40.3 % (37.0-47.0); Hemoglobin 14.4 g/dl (12.0-16.0); Mean Corpuscular Hemoglobin 32.6 pg (25.0-34.0); Mean Corpuscular Hgb Conc 35.7 g/dL (32.0-36.0); Mean Corpuscular Volume 91.2 fL (80.0-100.0); Platelet Count 319 K/uL (130-400); RDW Coefficient of Variation 13.4 % (11.5-14.5); RDW Standard Deviation 44.7 fL (36.4-46.3); Red Blood Count 4.42 M/uL (4.20-5.40); White Blood Count 13.36 K/ul (4.8-10.8)
[2023-11-07 06:40] LABS: BUN Creatinine Ratio 27.5 (10-20); Calcium 9.7 mg/dl (8.6-10.3); Creatinine Clr Calc Pharmacy 57.2 ml/min; Est GFR (African American) 63.2 ml/min; Est GFR (Non-African American) 54.5 ml/min; Potassium 4.8 mmol/L (3.5-5.1)
[2023-11-07 07:21] LABS: Basophils # (auto) 0.01 K/uL (0.00-0.20); Basophils % (auto) 0.1 %; Eosinophils # (auto) 0.02 K/uL (0.00-0.50); Eosinophils % (auto) 0.1 %; Immature Granulocytes # (auto) 0.09 K/uL (0.01-0.20); Immature Granulocytes % (auto) 0.7 %; Lymphocytes # (auto) 0.29 K/uL (1.20-3.40); Lymphocytes % (auto) 2.2 %; Monocytes # (auto) 0.43 K/uL (0.11-0.59); Monocytes % (auto) 3.2 %; Neutrophils # (auto) 12.52 K/uL (1.40-6.50); Neutrophils % (auto) 93.7 %
[2023-11-07] MEDS: ALBUT/IPRATROP 3MG/0.5MG NEB 3 ML VIAL NEB SCH ×4 (07:23→19:59)
[2023-11-07] MEDS: ATORVASTATIN 20 MG TAB PO SCH (07:59)
[2023-11-07] MEDS: DOXYCYCLINE HYCLATE 100 MG CAP PO SCH ×2 (07:59→20:44)
[2023-11-07] MEDS: guaiFENesin 600 MG TABCR PO SCH ×2 (07:59→20:44)
[2023-11-07] MEDS: UMECLIDINIUM/VILANTEROL 62.5/25MCG 7 PUFFS/INHALER INH SCH (08:00)
[2023-11-07] MEDS: CHOLECALCIFEROL 1,000 UNITS 25 MCG TAB PO SCH (08:00)
[2023-11-07] MEDS: FLUTICASONE FUROATE 100MCG 14 PUFFS/INHALER INH SCH (08:00)
[2023-11-07] MEDS: ENOXAPARIN INJ 40 MG/0.4 ML SYR SQ SCH (08:00)
[2023-11-07] MEDS: cefTRIAXone SODIUM 2,000 MG in DEXTROSE 5 % MINI-B 50 ML IV SCH (13:14)
--- NOTE | 2023-11-07 16:04 | Hospitalist Progress Note ---
Date of Service November 07, 2023 Assessment & Plan (1) COPD exacerbation: (2) Hypomagnesemia: (3) Chronic respiratory failure with hypoxia, on home O2 therapy: (4) Prediabetes: (5) Acute hypoxic respiratory failure: Plan This is a 73 y/o female with chronic hypoxic respiratory failure (home O2 at 2L daytime, 3L HS), COPD, prediabetes (last A1c on 03/01/23 was 5.9), chronic diastolic HF, osteoporosis admitted with acute hypoxic respiratory failure. Acute hypoxic Respiratory Failure COPD Exacerbation Presented to the ED with increased cough and worsening hypoxia as low as the 70s at home negative viral respiratory panel CXR with progression of bibasilar interstitial thickening EKG without acute change, hs-troponin elevated to 14.1, downtrended to normal 11.3. Consider echo. Prior pulmonology notes reviewed - per Dr. Reyes's last note, target pulseox is 88% or greater. Continue oxygen titrated to maintain sats 88% of greater based on pulm recommendations outpatient, uses oxygen 2L at home Currently at baseline 2L SoluMedrol 40 mg IV Q8 hrs Continue doxycycline that pt started from her rescue kit DuoNebs QID scheduled, and prn Flutter valve/IS Mucinex 600 mg BID scheduled, Guaifenesin DM prn for cough Has been feeling much better-still getting short of breath with exertion and requiring up to 5 L to maintain saturation. She will continue to have the current management and the see if any further improvement of her condition tomorrow If she reaches her baseline by tomorrow she will be discharged home with short course of tapered prednisone and oral doxycycline Clinically better but has been requiring 6 L to maintain saturation with ambulation Was advised to stay tonight and discharge tomorrow if she feels even better Denies any chest pain or palpitation No fever and or chills-continue current management Replete electrolytes as needed Continue other home medications as appropriate. Diet: HH Code Status: Per discussion with admitting team, DNI but would like other measures attempted though no prolonged efforts DVT Prophylaxis: Lovenox Dispo: PT/OT ordered Admission and Anticipated Discharge Date Admission Date: November 04, 2023 Subjective 11/06/2023 The patient was seen and examined in telemetry unit She remains short of breath at rest and with exertion she has been requiring more than 5 L to maintain saturation Denies any chest pain and/or palpitation Has been ambulating in the room with difficulty 11/07/2023 The patient was seen and examined in telemetry She remains stable at rest Has been complaining of shortness of breath with exertion Status post 2 steps O2 saturation test-recommended 6 L with ambulation and 2L at rest Review of Systems Review of Systems: All systems reviewed and are unremarkable except as noted will Physical Exam Physical Exam: Sitting at the edge of the bed with minimal shortness of breath Constitutional: well developed, well nourished, + ill appearing and + obese Eyes: PERRL, conjunctivae normal, anicteric sclerae ENMT: external ear and nose normal, oropharynx normal Neck: trachea midline, no thyromegaly Respiratory: + respiratory distress (Mild to moderate respiratory distress at rest) Auscultation: + diminished lung sounds and + wheezes (At the bases) Cardiovascular: Rate/Rhythm: regular rate and regular rhythm; not tachycardic Heart Sounds: normal S1 and normal S2; no murmur Extremities: + edema (Trace edema bilaterally) Gastrointestinal (Abdomen): Inspection/Auscultation: normal bowel sounds; abdomen not distended Percussion/Palpation: abdomen soft; abdomen nontender Neurologic: normal touch/pain/proprioception and moves all extremities; no focal motor deficits Psychiatric: A+Ox3, euthymic affect Lymphatic: no cervical or axillary lymphadenopathy Results & Data Results & Data Vital Signs (Past 12 Hours) Vital Signs Temp Pulse Pulse Pulse Pulse Pulse Pulse 11/07/23 15:52 71 11/07/23 12:42 96 H 90 88 90 11/07/23 11:39 36.7 C 77 11/07/23 11:32 78 11/07/23 08:00 11/07/23 07:33 63 11/07/23 07:27 36.6 C 60 11/07/23 07:23 58 L Pulse Pulse Pulse Resp Resp Resp Resp 11/07/23 15:52 18 11/07/23 12:42 90 86 96 H 20 20 20 11/07/23 11:39 19 11/07/23 11:32 18 11/07/23 08:00 11/07/23 07:33 11/07/23 07:27 18 11/07/23 07:23 18 Resp Resp Resp Resp BP Pulse Ox Pulse Ox 11/07/23 15:52 94 11/07/23 12:42 22 20 18 18 84 L 11/07/23 11:39 120/70 97 11/07/23 11:32 91 11/07/23 08:00 11/07/23 07:33 11/07/23 07:27 143/78 H 94 11/07/23 07:23 92 Pulse Ox Pulse Ox Pulse Ox Pulse Ox Pulse Ox Pulse Ox O2 Del Method 11/07/23 15:52 Nasal Cannula 11/07/23 12:42 84 L 84 L 86 L 89 L 90 86 L 11/07/23 11:39 Nasal Cannula 11/07/23 11:32 Nasal Cannula 11/07/23 08:00 Nasal Cannula 11/07/23 07:33 11/07/23 07:27 Nasal Cannula 11/07/23 07:23 Nasal Cannula O2 Flow Rate O2 Flow Rate O2 Flow Rate O2 Flow Rate O2 Flow Rate O2 Flow Rate O2 Flow Rate 11/07/23 15:52 2 11/07/23 12:42 2 3 4 5 6 2 11/07/23 11:39 2.0 11/07/23 11:32 2 11/07/23 08:00 2 11/07/23 07:33 11/07/23 07:27 2.0 11/07/23 07:23 2 Laboratory Results Short CBC 11/07/23 Range/Units 05:43 WBC 13.36 H (4.8-10.8) K/ul Hgb 14.4 (12.0-16.0) g/dl Hct 40.3 (37.0-47.0) % Plt Count 319 (130-400) K/uL BMP 11/07/23 05:43 Sodium 136 Potassium 4.8 Chloride 103 Carbon Dioxide 24 BUN 28 H Creatinine 1.02 Glucose 139 H Calcium 9.7 Medications Administered Current Inpatient Medications Acetaminophen (Acetaminophen 325 Mg Tab) 650 mg PO Q4H PRN PRN Reason: Pain or Fever Stop: 12/04/23 13:23 Albuterol (Albut/Ipratrop 3mg/0.5mg Neb 3 Ml Vial) 3 ml NEB QIDR [facility]; Protocol Stop: 12/04/23 13:23 Last Admin: 11/07/23 15:50 Dose: 3 ml Atorvastatin Calcium ([facility]atin 20 Mg Tab) [facility] Stop: 01/04/24 08:59 Last Admin: 11/07/23 07:59 Dose: 20 mg Doxycycline Hyclate (Doxycycline Hyclate 100 Mg Cap) 100 mg PO BID [facility] Stop: 11/11/23 20:59 Last Admin: 11/07/23 07:59 Dose: 100 mg Enoxaparin Sodium (Enoxaparin Inj 40 Mg/0.4 Ml Syr) 40 mg SQ QAM [facility] Stop: 12/05/23 08:59 Last Admin: 11/07/23 08:00 Dose: 40 mg Fluticasone Furoate (Fluticasone Furoate 100mcg 14 Puffs/Inhaler) 1 puffs INH DAILY [facility] Stop: 12/05/23 08:59 Last Admin: 11/07/23 08:00 Dose: 1 puffs Guaifenesin (Guaifenesin 600 Mg Tabcr) 600 mg PO Q12 [facility] Stop: 12/04/23 20:59 Last Admin: 11/07/23 07:59 Dose: 600 mg Guaifenesin/Dextromethorphan (Guaifenesin/Dextrom Syrup 200mg/20mg 10ml Udc) 10 ml PO Q6H PRN PRN Reason: Cough Stop: 12/04/23 13:23 Last Admin: 11/04/23 21:35 Dose: 10 ml Ceftriaxone Sodium 2,000 mg/ (Dextrose) 50 mls @ 100 mls/hr IV Q24H [facility] Stop: 11/11/23 13:59 Last Infusion: 11/07/23 14:54 Dose: Infused Methylprednisolone 40 mg/ (Syringe) 0.64 mls @ 1.5 mls/min IV Q8H [facility] Stop: 12/04/23 13:59 Last Admin: 11/07/23 13:14 Dose: 1.5 mls/min Umeclidinium/Vilanterol (Umeclidinium/Vilanterol 62.5/25mcg 7 Puffs/Inhaler) 1 puffs INH DAILY [facility] Stop: 12/05/23 08:59 Last Admin: 11/07/23 08:00 Dose: 1 puffs Vitamin D (Cholecalciferol 1,000 Units 25 Mcg Tab) 1,000 units PO QAM [facility] Stop: 12/05/23 08:59 Last Admin: 11/07/23 08:00 Dose: 1,000 units
[2023-11-08] MEDS: methylPREDNISolone 40 MG in SYRINGE 0 ML IV SCH ×2 (05:58→15:18)
[2023-11-08] MEDS: ALBUT/IPRATROP 3MG/0.5MG NEB 3 ML VIAL NEB SCH ×3 (07:35→15:12)
[2023-11-08] MEDS: UMECLIDINIUM/VILANTEROL 62.5/25MCG 7 PUFFS/INHALER INH SCH (08:10)
[2023-11-08] MEDS: guaiFENesin 600 MG TABCR PO SCH (08:10)
[2023-11-08] MEDS: FLUTICASONE FUROATE 100MCG 14 PUFFS/INHALER INH SCH (08:11)
[2023-11-08] MEDS: ENOXAPARIN INJ 40 MG/0.4 ML SYR SQ SCH (08:11)
[2023-11-08] MEDS: ATORVASTATIN 20 MG TAB PO SCH (08:11)
[2023-11-08] MEDS: CHOLECALCIFEROL 1,000 UNITS 25 MCG TAB PO SCH (08:11)
[2023-11-08] MEDS: DOXYCYCLINE HYCLATE 100 MG CAP PO SCH (08:11)
--- NOTE | 2023-11-08 15:14 | Hospitalist Progress Note ---
Date of Service November 08, 2023 Assessment & Plan (1) COPD exacerbation: (2) Hypomagnesemia: (3) Chronic respiratory failure with hypoxia, on home O2 therapy: (4) Prediabetes: (5) Acute hypoxic respiratory failure: Plan This is a 73 y/o female with chronic hypoxic respiratory failure (home O2 at 2L daytime, 3L HS), COPD, prediabetes (last A1c on 03/01/23 was 5.9), chronic diastolic HF, osteoporosis admitted with acute hypoxic respiratory failure. Acute hypoxic Respiratory Failure COPD Exacerbation Presented to the ED with increased cough and worsening hypoxia as low as the 70s at home negative viral respiratory panel CXR with progression of bibasilar interstitial thickening EKG without acute change, hs-troponin elevated to 14.1, downtrended to normal 11.3. Consider echo. Prior pulmonology notes reviewed - per Dr. Reyes's last note, target pulseox is 88% or greater. Continue oxygen titrated to maintain sats 88% of greater based on pulm recommendations outpatient, uses oxygen 2L at home Currently at baseline 2L SoluMedrol 40 mg IV Q8 hrs Continue doxycycline that pt started from her rescue kit DuoNebs QID scheduled, and prn Flutter valve/IS Mucinex 600 mg BID scheduled, Guaifenesin DM prn for cough Has been feeling much better-still getting short of breath with exertion and requiring up to 5 L to maintain saturation. She will continue to have the current management and the see if any further improvement of her condition tomorrow If she reaches her baseline by tomorrow she will be discharged home with short course of tapered prednisone and oral doxycycline Clinically better but has been requiring 6 L to maintain saturation with ambulation Was advised to stay tonight and discharge tomorrow if she feels even better Denies any chest pain or palpitation No fever and or chills-continue current management Respiratory symptoms a little better and she wants to be discharged Oxygen has been delivered at her home Has an appointment with primary care provider and also pulmonology as an outpatient Will be discharged home this afternoon with short course of prednisone and antibiotics as advised Replete electrolytes as needed Continue other home medications as appropriate. Diet: HH Code Status: Per discussion with admitting team, DNI but would like other measures attempted though no prolonged efforts DVT Prophylaxis: Lovenox Dispo: PT/OT ordered Admission and Anticipated Discharge Date Admission Date: November 04, 2023 Subjective 11/06/2023 The patient was seen and examined in telemetry unit She remains short of breath at rest and with exertion she has been requiring mo re than 5 L to maintain saturation Denies any chest pain and/or palpitation Has been ambulating in the room with difficulty 11/07/2023 The patient was seen and examined in telemetry She remains stable at rest Has been complaining of shortness of breath with exertion Status post 2 steps O2 saturation test-recommended 6 L with ambulation and 2L at rest 11/08/2023 The patient was seen and examined in telemetry unit She has been feeling much better and denies any significant symptoms No shortness of breath at rest and is still getting short of breath with exertion Discharged home this afternoon Review of Systems Review of Systems: All systems reviewed and are unremarkable except as noted below Physical Exam Physical Exam: Sitting at the edge of the bed with minimal shortness of breath Constitutional: well developed, well nourished, + ill appearing and + obese Eyes: PERRL, conjunctivae normal, anicteric sclerae ENMT: external ear and nose normal, oropharynx normal Neck: trachea midline, no thyromegaly Respiratory: + respiratory distress (Mild to moderate respiratory distress at rest) Auscultation: + diminished lung sounds and + wheezes (At the bases) Cardiovascular: Rate/Rhythm: regular rate and regular rhythm; not tachycardic Heart Sounds: normal S1 and normal S2; no murmur Extremities: + edema (Trace edema bilaterally) Gastrointestinal (Abdomen): Inspection/Auscultation: normal bowel sounds; abdomen not distended Percussion/Palpation: abdomen soft; abdomen nontender Neurologic: normal touch/pain/proprioception and moves all extremities; no focal motor deficits Psychiatric: A+Ox3, euthymic affect Lymphatic: no cervical or axillary lymphadenopathy Results & Data Results & Data Vital Signs (Past 12 Hours) Vital Signs Temp Pulse Pulse Resp BP Pulse Ox O2 Del Method 11/08/23 15:07 36.9 C 70 20 155/69 H 92 Room Air 11/08/23 11:07 36.6 C 84 20 149/74 H 91 Nasal Cannula 11/08/23 10:31 86 18 93 Nasal Cannula 11/08/23 07:36 71 18 90 Nasal Cannula 11/08/23 07:13 36.4 C L 63 20 131/81 93 Nasal Cannula 11/08/23 03:30 36.4 C L 72 20 135/78 92 Nasal Cannula O2 Flow Rate 11/08/23 15:07 2 11/08/23 11:07 2 11/08/23 10:31 2 11/08/23 07:36 2 11/08/23 07:13 2 11/08/23 03:30 3 Medications Administered Current Inpatient Medications Acetaminophen (Acetaminophen 325 Mg Tab) 650 mg PO Q4H PRN PRN Reason: Pain or Fever Stop: 12/04/23 13:23 Albuterol (Albut/Ipratrop 3mg/0.5mg Neb 3 Ml Vial) 3 ml NEB QIDR [facility]; Protocol Stop: 12/04/23 13:23 Last Admin: 11/08/23 15:12 Dose: 3 ml Atorvastatin Calcium (Atorvastatin 20 Mg Tab) 20 mg PO QAM [facility] Stop: 12/05/23 08:59 Last Admin: 11/08/23 08:11 Dose: 20 mg Doxycycline Hyclate (Doxycycline Hyclate 100 Mg Cap) 100 mg PO BID [facility] Stop: 11/11/23 20:59 Last Admin: 11/08/23 08:11 Dose: 100 mg Enoxaparin Sodium (Enoxaparin Inj 40 Mg/0.4 Ml Syr) 40 mg SQ QAM [facility] Stop: 12/05/23 08:59 Last Admin: 11/08/23 08:11 Dose: 40 mg Fluticasone Furoate (Fluticasone Furoate 100mcg 14 Puffs/Inhaler) 1 puffs INH DAILY [facility] Stop: 12/05/23 08:59 Last Admin: 11/08/23 08:11 Dose: 1 puffs Guaifenesin (Guaifenesin 600 Mg Tabcr) 600 mg PO Q12 [facility] Stop: 12/04/23 20:59 Last Admin: 11/08/23 08:10 Dose: 600 mg Guaifenesin/Dextromethorphan (Guaifenesin/Dextrom Syrup 200mg/20mg 10ml Udc) 10 ml PO Q6H PRN PRN Reason: Cough Stop: 12/04/23 13:23 Last Admin: 11/04/23 21:35 Dose: 10 ml Ceftriaxone Sodium 2,000 mg/ (Dextrose) 50 mls @ 100 mls/hr IV Q24H [facility] Stop: 11/11/23 13:59 Last Infusion: 11/08/23 16:06 Dose: Infused Methylprednisolone 40 mg/ (Syringe) 0.64 mls @ 1.5 mls/min IV Q8H [facility] Stop: 12/04/23 13:59 Last Admin: 11/08/23 15:18 Dose: 1.5 mls/min Umeclidinium/Vilanterol (Umeclidinium/Vilanterol 62.5/25mcg 7 Puffs/Inhaler) 1 puffs INH DAILY [facility] Stop: 12/05/23 08:59 Last Admin: 11/08/23 08:10 Dose: 1 puffs Vitamin D (Cholecalciferol 1,000 Units 25 Mcg Tab) 1,000 units PO QAM [facility] Stop: 12/05/23 08:59 Last Admin: 11/08/23 08:11 Dose: 1,000 units
[2023-11-08] MEDS: cefTRIAXone SODIUM 2,000 MG in DEXTROSE 5 % MINI-B 50 ML IV SCH (15:18)
--- NOTE | 2023-11-09 08:38 | Discharge Summary ---
Date of Service November 09, 2023 Admission HPI Per Admitting Provider This is a 73 y/o female with chronic hypoxic respiratory failure (home O2 at 2L daytime, 3L HS), COPD, prediabetes (last A1c on 03/01/23 was 5.9), chronic diastolic HF, osteoporosis and other history as listed who presents to the ED with increased cough and worsening hypoxia that started overnight. Sats at home were 75-88% since 1:30 am today so she decided to come to the ED for evaluation. Cough is intermittently productive of brown to clear mucus. Chest feels tight but no dyspnea at rest or chest pain. Last night, she got SOB when she went to the bathroom, which is not her baseline. No episodes of aspiration or choking episodes. Started her rescue kit of prednisone and doxycycline this morning. Used home cough medicine with codeine this AM with some relief. No increased peripheral edema. Denies N/V/D, abdominal pain. Had flu and COVID vaccine. Scheduled to see Dr. Reyes next month - last visit in Dec 2021. Pt has not been using albuterol inhaler, does not have a home nebulizer. Admission Exam Per Admitting Provider Vitals signs as noted above General Appearance: Obese, no apparent distress Head: normocephalic, Atraumatic Eyes: normal inspection, EOMI Neck: supple, Trachea midline Respiratory/Chest: Decreased breath sounds, scattered wheezes, No accessory muscle use Cardiovascular: S1, S2, No murmur Abdomen/GI:Soft, Non tender, Bowel sounds present Extremities/Musculoskeletal:normal inspection, 1+ B/L LE edema Neurologic/Psych:AAOX3, grossly no focal neurological deficits Skin: normal color, warm Principal Diagnosis COPD exacerbation Discharge Exam Sitting at the edge of the bed with minimal shortness of breath Constitutional well developed, well nourished, + ill appearing and + obese Eyes PERRL, conjunctivae normal, anicteric sclerae ENMT external ear and nose normal, oropharynx normal Neck trachea midline, no thyromegaly Respiratory + respiratory distress (Mild to moderate respiratory distress at rest) Auscultation: + diminished lung sounds and + wheezes (At the bases) Cardiovascular Rate/Rhythm: regular rate and regular rhythm; not tachycardic Heart Sounds: normal S1 and normal S2; no murmur Extremities: + edema (Trace edema bilaterally) Gastrointestinal (Abdomen) Inspection/Auscultation: normal bowel sounds; abdomen not distended Percussion/Palpation: abdomen soft; abdomen nontender Neurologic normal touch/pain/proprioception and moves all extremities; no focal motor deficits Psychiatric A+Ox3, euthymic affect Lymphatic no cervical or axillary lymphadenopathy Discharge Data Allergies Allergy/AdvReac Type Severity Reaction Status Date / Time No Known Allergies Allergy Verified 11/04/23 10:00 Consultations 11/04/23 10:55 ED Decision to Admit Stat Hospital Course (1) COPD exacerbation: (2) Hypomagnesemia: (3) Chronic respiratory failure with hypoxia, on home O2 therapy: (4) Prediabetes: (5) Acute hypoxic respiratory failure: Plan This is a 73 y/o female with chronic hypoxic respiratory failure (home O2 at 2L daytime, 3L HS), COPD, prediabetes (last A1c on 03/01/23 was 5.9), chronic diastolic HF, osteoporosis admitted with acute hypoxic respiratory failure. Acute hypoxic Respiratory Failure COPD Exacerbation Presented to the ED with increased cough and worsening hypoxia as low as the 70s at home negative viral respiratory panel CXR with progression of bibasilar interstitial thickening EKG without acute change, hs-troponin elevated to 14.1, downtrended to normal 11.3. Consider echo. Prior pulmonology notes reviewed - per Dr. Reyes's last note, target pulseox is 88% or greater. Continue oxygen titrated to maintain sats 88% of greater based on pulm recommendations outpatient, uses oxygen 2L at home Currently at baseline 2L SoluMedrol 40 mg IV Q8 hrs Continue doxycycline that pt started from her rescue kit DuoNebs QID scheduled, and prn Flutter valve/IS Mucinex 600 mg BID scheduled, Guaifenesin DM prn for cough Has been feeling much better-still getting short of breath with exertion and requiring up to 5 L to maintain saturation. She will continue to have the current management and the see if any further improvement of her condition tomorrow If she reaches her baseline by tomorrow she will be discharged home with short course of tapered prednisone and oral doxycycline Clinically better but has been requiring 6 L to maintain saturation with ambulation Was advised to stay tonight and discharge tomorrow if she feels even better Denies any chest pain or palpitation No fever and or chills-continue current management Respiratory symptoms a little better and she wants to be discharged Oxygen has been delivered at her home Has an appointment with primary care provider and also pulmonology as an outpatient Will be discharged home this afternoon with short course of prednisone and antibiotics as advised Replete electrolytes as needed Continue other home medications as appropriate. Diet: HH Code Status: Per discussion with admitting team, DNI but would like other measures attempted though no prolonged efforts DVT Prophylaxis: Lovenox Dispo: PT/OT ordered Total Time Total Time Spent Total Time Spent (In Minutes): 35 minutes Discharge Plan Discharge Items Patient Disposition: Home - Self-Care Reason For Visit: COPD EXACERBATION Discharge Diagnosis: COPD exacerbation Condition on Discharge: Fair Activity: Resume your previous activity Non-emergency contact: Primary Care Provider Call non-emergency contact if: you have any medication questions and your symptoms worsen Follow-up/Referrals: Sachin Reyes MD [Physician] - 11/22/23 2:00 pm Virgilio Gallegos MD [Primary Care Provider] - (Date & Time 11/13/2023 11:20 AM Provider Virgilio Gallegos MD [facility] ) Diet: Heart Healthy Addtl Attending Provider Instructions: Please take precautions to avoid falls Use your oxygen as advised Take your medications as advised Please keep appointments with the healthcare provider Pending Studies at Discharge: No Stand-Alone Forms: My [facility] [email or web address], Smoking Cessation Medications and DC Order Prescriptions: New doxycycline hyclate 100 mg Capsule 100 mg PO BID Qty: 12 0RF cefdinir 300 mg capsule 300 mg PO BID 6 Days Qty: 12 0RF Continued (DME) Oxygen Home Liters Per Minute See Dose Instructions .ROUTE .MEDSUPPLY Qty: 1 0RF Dose Instruction: As directed Rx Instructions: Home oxygen to be used at 3LPM via nasal cannula during sleep; DME=TIE LOAD[employer] (DME) Over Night Pulse OX Misc See Dose Instructions .ROUTE .MEDSUPPLY Qty: 1 0RF Dose Instruction: As directed Rx Instructions: please obtain overnight pulse ox on 2LPM cholecalciferol (vitamin D3) 25 mcg (1,000 unit) capsule 25 mcg PO QAM atorvastatin 20 mg tablet 20 mg PO QAM albuterol sulfate [Ventolin HFA] 90 mcg/actuation Hfa Aerosol Inhaler 2 - 4 puff INHALATION BID codeine-guaifenesin 10-100 mg/5 mL Liquid 5 ml PO Q6H PRN (Reason: Cough) potassium chloride 20 mEq tablet,ER particles/crystals 20 meq PO QAM PRN (Reason: If lasix is taken) furosemide 20 mg tablet 20 mg PO QAM PRN (Reason: swelling) Trelegy Ellipta 100-62.5-25 mcg blister with device 1 inh INH QAM Changed prednisone 10 mg Tablet 10 mg PO UD Qty: 30 0RF Rx Instructions: 10 mg orally; Discharge Orders: Discharge Order (Routine); Ordered 11/08/23 Ordered By: Sergio Raya Admission Data Admit Date/Time: 11/04/23 10:24 Attending Provider: Sergio Raya Admit Provider: Ruddy Slaughter Primary Care Provider: Virgilio Gallegos Other Providers: Ruddy Slaughter Other Interventions: Discharge Summary Assessment (RN) Last Done: 11/08/23 16:00
== END 2023-11-08 17:20 | disposition home or self-care (01) | DRG 190 ==
LOC: ED 08:09 → SUATTDRO 10:24 → EDINP 10:24 → 4W 13:25

== ENCOUNTER 2024-09-03 07:46 | Inpatient (IN) ==
--- NOTE | 2024-09-03 07:59 | Emergency Department Note ---
Impression & Plan Acute and chronic respiratory failure with hypoxia ED Provider Note Provider: Sergey Benitez MD DATE OF SERVICE: 09/03/2024 CHIEF COMPLAINT: Breathing problems HISTORY OF PRESENT ILLNESS: Patient is a 73-year-old female history of chronic hypoxic respiratory failure on 2 L oxygen during the day and 3 L at night, COPD, prediabetes, chronic systolic heart failure, osteoporosis presenting here today reporting worsening breathing issues. Worsening coughing over the past 2 nights. Worsening SOB since last night. States she has had to increase her home oxygen. Some brownish sputum reported. No sick contacts. No travel. No syncope or chest pain. No GI symptoms. No significant congestion reported. Has not used her rescue pack at home. PAST MEDICAL HISTORY: As noted above MEDICATIONS: Reviewed home medications SOCIAL HISTORY: Former smoker PHYSICAL EXAM: GENERAL: alert and oriented in no acute distress on stretcher Head: normocephalic and atraumatic EYES: No injection, discharge or icterus. EOMI. NECK: Trachea midline. Supple. ENT: Mucous membranes pink and moist. LUNGS: Airway patent. No retractions. Breath sounds clear with good air entry bilaterally. HEART: Regular rate and rhythm. No chest wall tenderness ABDOMEN: Soft and non-tender, without guarding or rebound. SKIN: Acyanotic, warm, dry, without rashes EXTREMITIES: Without tenderness with trace to 1+ bilateral lower extremity swelling. NEUROLOGICAL: No focal deficits. No aphasia. No facial droop or slurred speech. Ambulatory. EK bpm normal sinus rhythm incomplete right bundle branch block. No PVC or PAC. No acute ST segment elevation or depression with nonspecific T wave inversions QTc of 452. CONTINUOUS CARDIAC MONITORING: was ordered and showed a heart rate of bpm in Patient's laboratory studies and imaging reviewed. Differential includes Reactive airway disease, pneumonia, pneumothorax, COPD, CHF, infections, cardiac ischemia, pulmonary embolism, musculoskeletal, gastrointestinal, as well as other pathologies. IMPRESSION/MEDICAL DECISION MAKING: Seen with the resident physician here. Patient some tachypnea and increased ox requirement significant history of COPD and chronic oxygen usage. Respiratory viral panel was sent. Chest x-ray obtained. Does have a history of diastolic failure does not appear clinically fluid overloaded. Blood work was sent. Given IV steroids as well as DuoNeb to try to treat any COPD component. Patient denies any encephalopathy. VBG here without significant acidosis or hypercarbia. Blood work here without significant anemia. Borderline leukocytosis of 11.5. No significant chemistry abnormality/electrolyte abnormalities. No evidence of renal dysfunction. Negative respiratory viral panel. Negative urinalysis. Given her underlying COPD and lung disease with increased oxygen requirement will cover with doxycycline (has previously done well with this). Will bring her to the hospital for further care. DIAGNOSIS: Acute COPD exacerbation, acute on chronic hypoxic respiratory failure DISPOSITION: Hospitalist will evaluate Patient was agreeable with this plan. Past Med/Surg History Problem List (Updated 09/03/24 @ 09:39 by Sergey Benitez M.D.) Acute and chronic respiratory failure with hypoxia (Acute) Pulmonary nodule Abnormal CXR Pneumonia Acute exacerbation of chronic obstructive pulmonary disease (Acute) Acute hypoxic respiratory failure (Acute) Hypomagnesemia COPD exacerbation (Acute) Chronic diastolic heart failure Prediabetes Chronic respiratory failure with hypoxia, on home O2 therapy (Chronic) Pulmonary hypertension Adenomatous colon polyp COPD (chronic obstructive pulmonary disease) Osteoporosis Medical History NAFLD (nonalcoholic fatty liver disease) Chronic diastolic heart failure Prediabetes Nephrolithiasis Chronic respiratory failure with hypoxia, on home O2 therapy On home oxygen therapy 2L during the day and 3L N/C hs Adenomatous colon polyp Pulmonary hypertension Osteoporosis COPD (chronic obstructive pulmonary disease) Surgical History History of tooth extraction all teeth Hx of colonoscopy with polypectomy 2009, 2010, 2011, 2014, 2016, 2018, 2018, 2021 History of tubal ligation Family History Mother Colon cancer Sister , age 18 Leukemia Sister , age 55 Lung cancer Son Colon cancer Other No family history of adverse response to anesthesia Social History Smoking Status: Former smoker Cigarettes Per Day: 15; Second Hand Exposure: No; Do You Dip or Chew Tobacco: No; Hx Alcohol Use: No Hx Substance Use: No Preferred Language: Maori Communication Ability: Effective Visual Impairment: No Limitations Wood Filler Required: No Beliefs That Will Affect Care: None marital status: Current Living Situation: Spouse Feels Safe at Home: Yes Assistive Devices: Oxygen - Continuous Allergies Allergies Allergy/AdvReac Type Severity Reaction Status Date / Time No Known Allergies Allergy Verified 09/03/24 09:40 Home Meds Home Medications Medication Instructions Recorded Confirmed cholecalciferol (vitamin D3) 25 25 mcg PO QAM 11/01/20 09/03/24 mcg (1,000 unit) capsule atorvastatin 20 mg tablet 20 mg PO QAM 12/22/21 09/03/24 fluticasone fur. 100 mcg-umeclid 1 inh inhalation QAM 01/29/22 09/03/24 62.5 mcg-vilant 25 mcg inhalat.powder (Trelegy Ellipta) furosemide 20 mg tablet 20 mg PO QAM 01/29/22 09/03/24 potassium chloride 20 mEq 20 meq PO QAM 01/29/22 09/03/24 tablet,extended release(part/cryst) Previous Rx's Medication Instructions Recorded Over Night Pulse OX #1 ea 09/01/19 Oxygen Home #1 ea 09/18/19 Portable Oxygen #1 ea 03/20/24 Results & Data (ED) Vital Signs Vital Signs - 24 hr 09/03/24 07:50 09/03/24 08:04 09/03/24 08:04 Temperature 36.5 C Temperature Source Oral Pulse Rate 92 H 83 Pulse Rate [Apical] Pulse Rhythm Regular Respiratory Rate 26 H 20 Blood Pressure 141/80 H Blood Pressure [Left Arm] Blood Pressure Mean 100 Blood Pressure Mean [Left Arm] Blood Pressure Position Sitting Pulse Oximetry 85 L 85 L 91 Oxygen Delivery Method Nasal Cannula Nasal Cannula Nasal Cannula Oxygen Flow Rate 4 3 6 Sepsis Recent Fever Within 48 Hours No Sepsis New/Unexplained Change in Mental Status No Sepsis Action Taken by Nursing No Action Required Oxygen Flow Rate - Titration 6 Pulse Oximetry Post Tiitration 91 09/03/24 08:06 09/03/24 08:27 09/03/24 09:00 Temperature Temperature Source Pulse Rate 86 86 99 H Pulse Rate [Apical] Pulse Rhythm Respiratory Rate 21 19 Blood Pressure 118/75 151/66 H Blood Pressure [Left Arm] Blood Pressure Mean 89 94 Blood Pressure Mean [Left Arm] Blood Pressure Position Pulse Oximetry 90 95 Oxygen Delivery Method Nasal Cannula Oxygen Flow Rate 6 Sepsis Recent Fever Within 48 Hours Sepsis New/Unexplained Change in Mental Status Sepsis Action Taken by Nursing Oxygen Flow Rate - Titration Pulse Oximetry Post Tiitration 09/03/24 09:30 09/03/24 10:00 09/03/24 12:00 Temperature Temperature Source Pulse Rate 116 H 113 H Pulse Rate [Apical] 95 H Pulse Rhythm Respiratory Rate 22 21 18 Blood Pressure 167/61 H 143/67 H Blood Pressure [Left Arm] 132/63 Blood Pressure Mean 91 95 Blood Pressure Mean [Left Arm] 86 Blood Pressure Position Pulse Oximetry 93 91 92 Oxygen Delivery Method Nasal Cannula Nasal Cannula Nasal Cannula Oxygen Flow Rate 6 6 4 Sepsis Recent Fever Within 48 Hours Sepsis New/Unexplained Change in Mental Status Sepsis Action Taken by Nursing Oxygen Flow Rate - Titration Pulse Oximetry Post Tiitration 09/03/24 12:44 Temperature Temperature Source Pulse Rate Pulse Rate [Apical] Pulse Rhythm Respiratory Rate Blood Pressure Blood Pressure [Left Arm] Blood Pressure Mean Blood Pressure Mean [Left Arm] Blood Pressure Position Pulse Oximetry Oxygen Delivery Method Nasal Cannula Oxygen Flow Rate 4 Sepsis Recent Fever Within 48 Hours Sepsis New/Unexplained Change in Mental Status Sepsis Action Taken by Nursing Oxygen Flow Rate - Titration Pulse Oximetry Post Tiitration Laboratory Data 09/03/24 08:09 09/03/24 08:09 Lab Results 09/03/24 09/03/24 09/03/24 Range/Units 08:09 09:13 10:01 WBC 11.53 H (4.8-10.8) K/ul RBC 4.63 (4.20-5.40) M/uL Hgb 14.6 (12.0-16.0) g/dl Hct 42.0 (37.0-47.0) % MCV 90.7 (80.0-100.0) fL MCH 31.5 (25.0-34.0) pg MCHC 34.8 (32.0-36.0) g/dL RDW Std Deviation 44.8 (36.4-46.3) fL RDW Coeff of Elvin 13.3 (11.5-14.5) % Plt Count 241 (130-400) K/uL MPV 10.8 (9.4-12.4) fL Immature Gran % (Auto) 0.3 % Neut % (Auto) 88.0 % Lymph % (Auto) 3.6 % [place] % (Auto) 7.5 % Eos % (Auto) 0.2 % Baso % (Auto) 0.4 % Neut # (Auto) 10.14 H (1.40-6.50) K/uL Lymph # (Auto) 0.41 L (1.20-3.40) K/uL [place] # (Auto) 0.87 H (0.11-0.59) K/uL Eos # (Auto) 0.02 (0.00-0.50) K/uL Baso # (Auto) 0.05 (0.00-0.20) K/uL Immature Gran # (Auto) 0.04 (0.01-0.20) K/uL PT 10.5 (9.0-12.0) Seconds INR 1.0 (0.9-1.1) VBG pH 7.45 H (7.36-7.41) VBG pCO2 39 (38-50) mmHg VBG pO2 63 mmHg VBG HCO3 27 mmol/L VBG O2 Saturation 93.0 % VBG Base Excess 3.0 mEq/L Sodium 138 (136-145) mmol/L Potassium 4.1 (3.5-5.1) mmol/L Chloride 103 (98-107) mmol/L Carbon Dioxide 28 (21-32) mmol/L Anion Gap 7 (3-11) BUN 14 (6-23) mg/dl Creatinine 0.86 (0.6-1.2) mg/dl Est Cr Clr Drug Dosing 71.4 ml/min eGFR 70.85 BUN/Creatinine Ratio 16.3 (10-20) Glucose 129 H (70-99(Fasting)) mg/dl Calcium 9.2 (8.6-10.3) mg/dl Magnesium 1.8 (1.7-2.4) mg/dl Total Bilirubin 2.1 H (0.2-1.0) mg/dl AST 23 (13-39) U/L ALT 38 (7-52) U/L Alkaline Phosphatase 73 (34-104) U/L Troponin I High Sens 9.7 (0-14) pg/ml Total Protein 6.6 (6.0-8.3) gm/dl Albumin 4.0 (3.4-5.0) gm/dl Globulin 2.6 (2.5-4.0) gm/dl Albumin/Globulin Ratio 1.5 (0.9-2) Urine Color Yellow Urine Appearance Clear (Clear) Urine pH 6.0 (4.5-7.5) Ur Specific [place] 1.007 (1.000-1.030) Urine Protein Negative (Negative) Urine Glucose (UA) Negative (Negative) Urine Ketones Negative (Negative) Urine Blood Negative (Negative) Urine Nitrite Negative (Negative) Urine Bilirubin Negative (Negative) Urine Urobilinogen Negative (Negative) Ur Leukocyte Esterase Negative (Negative) Adenovirus (PCR) Not Detected (NotDetected) B. pertussis DNA (PCR) Not Detected (NotDetected) B.parapertussis DNA PCR Not Detected (NotDetected) C. pneumoniae DNA (PCR) Not Detected (NotDetected) Coronavirus OC43 (PCR) Not Detected (NotDetected) Coronavirus HKU1 (PCR) Not Detected (NotDetected) Coronavirus 229E (PCR) Not Detected (NotDetected) SARS-CoV-2 (PCR) Not Detected (NotDetected) Coronavirus NL63 (PCR) Not Detected (NotDetected) Human Metapneumovir PCR Not Detected (NotDetected) Influenza Type A (PCR) Not Detected (NotDetected) Influenza Type B (PCR) Not Detected (NotDetected) M. pneumoniae (PCR) Not Detected (NotDetected) Parainfluenza 1 (PCR) Not Detected (NotDetected) Parainfluenza 2 (PCR) Not Detected (NotDetected) Parainfluenza 3 (PCR) Not Detected (NotDetected) Parainfluenza 4 (PCR) Not Detected (NotDetected) RSV (PCR) Not Detected (NotDetected) Entero/Rhino (PCR) Not Detected (NotDetected) Administered Medications Discontinued Medications Albuterol (Albut/Ipratrop 3mg/0.5mg Neb 3 Ml Vial) 12 ml NEB ONE ONE; Protocol Stop: 09/03/24 08:12 Last Admin: 09/03/24 08:20 Dose: 12 ml Documented By: FARZANEH Doxycycline Hyclate (Doxycycline Hyclate 100 Mg Cap) 100 mg PO NOW STA Stop: 09/03/24 09:36 Last Admin: 09/03/24 09:44 Dose: 100 mg Documented By: CRISPIN Methylprednisolone (Methylprednisolone 125 Mg/2 Ml Vial) 125 mg IV NOW STA Stop: 09/03/24 08:12 Last Admin: 09/03/24 08:20 Dose: 125 mg Documented By: ANG Imaging Data Radiologist's Impression: Chest X-Ray 09/03/24 07:53 XR chest 1V portable HISTORY: 74 years-old Female Dyspnea acute shortness of breath COMPARISON: Chest CT 04/29/2024 TECHNIQUE: AP view of the chest FINDINGS: Cardiac silhouette is mildly enlarged. Atherosclerosis of the aorta. No overt pulmonary edema. Emphysema with chronic interstitial coarsening. Mild subsegmental bibasilar opacities. Degenerative changes of the shoulders and spine. IMPRESSION: 1. Cardiomegaly without overt pulmonary edema. 2. Emphysema with chronic interstitial coarsening. 3. Mild bibasilar opacities suggest atelectasis/scarring. A mild pneumonitis considered less likely. ACT 112: Negative or not required by law. The above report was generated using voice recognition software. It may contain grammatical, syntax or spelling errors. Electronically signed by: Justyn Garcia M.D. 09/03/2024 8:45 AM Discharge Plan Visit Data Chief Complaint: Shortness of Breath/Dyspnea Stated Complaint: BREATHING ISSUES ED Provider: Sergey Benitez Discharge Problem: Acute and chronic respiratory failure with hypoxia Patient Disposition: Being Evaluated by Hospitalist Discharge Instructions Interventions: ED Discharge Assessment Last Done: 09/03/24 12:44 Forms Stand Alone Forms: My [employer] Prescriptions Prescriptions: No Action (DME) Oxygen Home Liters Per Minute See Dose Instructions .ROUTE .MEDSUPPLY Qty: 1 0RF Dose Instruction: As directed Rx Instructions: Home oxygen to be used at 3LPM via nasal cannula during sleep; DME=[employer] (DME) Portable Oxygen Misc See Rx Instructions .Route Qty: 1 0RF Rx Instructions: portable oxygen concentrator at 4L per min nasal cannula w/ exertion LYN 99 (DME) Over Night Pulse OX Misc See Dose Instructions .ROUTE .MEDSUPPLY Qty: 1 0RF Dose Instruction: As directed Rx Instructions: please obtain overnight pulse ox on 2LPM cholecalciferol (vitamin D3) 25 mcg (1,000 unit) capsule 25 mcg PO QAM atorvastatin 20 mg tablet 20 mg PO QAM potassium chloride 20 mEq tablet,ER particles/crystals 20 meq PO QAM furosemide 20 mg tablet 20 mg PO QAM Trelegy Ellipta 100-62.5-25 mcg blister with device 1 inh INH QAM Referrals Referrals: Virgilio Gallegos MD [Primary Care Provider] -
[2024-09-03 08:20] LABS: HCO3 VBG 27 mmol/L; PCO2 VBG 39 mmHg (38-50); PO2 VBG 63 mmHg; pH VBG 7.45 (7.36-7.41)
[2024-09-03] MEDS: methylPREDNISolone 125 MG/2 ML VIAL IV STA (08:20)
[2024-09-03] MEDS: ALBUT/IPRATROP 3MG/0.5MG NEB 3 ML VIAL NEB ONE (08:20)
[2024-09-03 08:28] LABS: Basophils # (auto) 0.05 K/uL (0.00-0.20); Basophils % (auto) 0.4 %; Eosinophils # (auto) 0.02 K/uL (0.00-0.50); Eosinophils % (auto) 0.2 %; Hemoglobin 14.6 g/dl (12.0-16.0); Immature Granulocytes # (auto) 0.04 K/uL (0.01-0.20); Immature Granulocytes % (auto) 0.3 %; Lymphocytes # (auto) 0.41 K/uL (1.20-3.40); Lymphocytes % (auto) 3.6 %; Mean Corpuscular Hemoglobin 31.5 pg (25.0-34.0); Mean Corpuscular Hgb Conc 34.8 g/dL (32.0-36.0); Mean Corpuscular Volume 90.7 fL (80.0-100.0); Mean Platelet Volume 10.8 fL (9.4-12.4); Monocytes # (auto) 0.87 K/uL (0.11-0.59); Monocytes % (auto) 7.5 %; Neutrophils # (auto) 10.14 K/uL (1.40-6.50); Platelet Count 241 K/uL (130-400); RDW Coefficient of Variation 13.3 % (11.5-14.5); RDW Standard Deviation 44.8 fL (36.4-46.3); Red Blood Count 4.63 M/uL (4.20-5.40); White Blood Count 11.53 K/ul (4.8-10.8)
[2024-09-03 08:43] LABS: Albumin Globulin Ratio 1.5 (0.9-2); BUN Creatinine Ratio 16.3 (10-20); Bilirubin,Total 2.1 mg/dl (0.2-1.0); Calcium 9.2 mg/dl (8.6-10.3); Creatinine Clr Calc Pharmacy 71.4 ml/min; Globulin 2.6 gm/dl (2.5-4.0); Magnesium 1.8 mg/dl (1.7-2.4); Potassium 4.1 mmol/L (3.5-5.1); Total Protein 6.6 gm/dl (6.0-8.3)
--- NOTE | 2024-09-03 08:47 | XRay Report ---
XR chest 1V portable HISTORY: 74 years-old Female Dyspnea acute shortness of breath COMPARISON: Chest CT 04/29/2024 TECHNIQUE: AP view of the chest FINDINGS: Cardiac silhouette is mildly enlarged. Atherosclerosis of the aorta. No overt pulmonary edema. Emphys breanna with chronic interstitial coarsening. Mild subsegmental bibasilar opacities. Degenerative changes of the shoulders and spine. IMPRESSION: 1. Cardiomegaly without overt pulmonary edema. 2. Emphysema with chronic interstitial coarsening. 3. Mild bibasilar opacities suggest atelectasis/scarring. A mild pneumonitis considered less likely. ACT 112: Negative or not required by law. The above report was generated using voice recognition software. It may contain grammatical, syntax o r spelling errors. Electronically signed by: Justyn Garcia M.D. 09/03/2024 8:45 AM
[2024-09-03 08:59] LABS: Prothrombin Time 10.5 Seconds (9.0-12.0)
[2024-09-03 09:17] LABS: Adenovirus PCR Not Detected (NotDetected); Bordetella parapertussis PCR Not Detected (NotDetected); Bordetella pertussis PCR Not Detected (NotDetected); Chlamydia pneumoniae PCR Not Detected (NotDetected); Coronavirus 229E PCR Not Detected (NotDetected); Coronavirus CoV-2 (COVID19)PCR Not Detected (NotDetected); Coronavirus HKU1 PCR Not Detected (NotDetected); Coronavirus NL63 PCR Not Detected (NotDetected); Coronavirus OC43PCR Not Detected (NotDetected); Human Metapneumovirus PCR Not Detected (NotDetected); Influenza A PCR Not Detected (NotDetected); Influenza B PCR Not Detected (NotDetected); Mycoplasma pneumoniae PCR Not Detected (NotDetected); Parainfluenza Virus 1 PCR Not Detected (NotDetected); Parainfluenza Virus 2 PCR Not Detected (NotDetected); Parainfluenza Virus 3 PCR Not Detected (NotDetected); Parainfluenza Virus 4 PCR Not Detected (NotDetected); Respiratory Syncytial VirusPCR Not Detected (NotDetected); Rhinovirus/Enterovirus PCR Not Detected (NotDetected)
[2024-09-03 09:34] LABS: Appearance Urine Clear (Clear); Bilirubin Urine Negative (Negative); Blood Urine Negative (Negative); Color Urine Yellow; Glucose Urine UA Negative (Negative); Ketones Urine Negative (Negative); Leukocyte Esterase Urine Negative (Negative); Nitrite Urine Negative (Negative); Protein Urine Negative (Negative); Specific Gravity Urine 1.007 (1.000-1.030); Urobilinogen Urine Negative (Negative)
[2024-09-03] MEDS: DOXYCYCLINE HYCLATE 100 MG CAP PO STA (09:44)
--- NOTE | 2024-09-03 11:58 | History & Physical Report ---
Date of Service September 03, 2024 Assessment & Plan (1) Acute and chronic respiratory failure with hypoxia: (2) Pneumonia: (3) Acute exacerbation of chronic obstructive pulmonary disease: (4) Chronic diastolic heart failure: (5) COPD (chronic obstructive pulmonary disease): Plan Assessment and plan: Acute on chronic respiratory failure: Possible bronchitis vs pna: Hx COPD: On 3 L chronically at home, follows with pulmonology outpatient Currently on 4 L, shortness of breath improved with nebulizers/steroids Continue IV Solu-Medrol every 8 hours, continue levalbuterol 4 times daily Wean oxygen as able, give azithromycin x 3 days, continue ceftriaxone Respiratory panel neg. Hx HLD/diastolic CHF: Continue statin, Lasix Patient should establish outpatient follow-up with cardiology Hx vitamin D deficiency: Continue vitamin D A total of 45 minutes was spent on reviewing laboratory results/diagnostic imaging/facilitating plan of care/reviewing medical history. Patient is a DNR/DNI DVT prophylaxis: Lovenox History of Present Illness Chief Complaint: Shortness of breath, cough Primary Care Provider: Virgilio Gallegos MD The patient is a 74-year-old female with a past medical history of diastolic CHF, COPDbaseline on 3 L, HLD, vitamin D deficiency who presents to the ED on 09/03/2024 with complaints of increasing shortness of breath. The patient reports starting to feel short of breath last night. She was on her usual oxygen requirement of 3 L. She reports increased her oxygen to 4 L and her pulse ox remained in the low 80s at this time. She decided to come to the ER today. She denies any recent fever/chills/abdominal pain/nausea/vomiting/diarrhea. She does report a productive cough with brown sputum which is not normal for her. Reports compliance with Trelegy and inhaler at home. She does not use nebulizers at home. Chest x-ray was not suggestive of pneumonia, WBC mildly elevated 11. Labs are otherwise unremarkable. UA was negative. Respiratory panel was negative. In the ED, patient was given Solu-Medrol and nebulizer with improvement in oxygen requirements. Patient remains on 4 L on exam. This was decreased from 6 L on arrival to the ED. The patient will be admitted for COPD exacerbation Allergies Allergy/AdvReac Type Severity Reaction Status Date / Time No Known Allergies Allergy Verified 09/03/24 09:40 Home Medications Medication Instructions Recorded Confirmed Type Over Night Pulse OX #1 ea 09/01/19 04/29/24 Rx Oxygen Home #1 ea 09/18/19 04/29/24 Rx cholecalciferol (vitamin D3) 25 25 mcg PO QAM 11/01/20 09/03/24 History mcg (1,000 unit) capsule atorvastatin 20 mg tablet 20 mg PO QAM 12/22/21 09/03/24 History fluticasone fur. 100 mcg-umeclid 1 inh inhalation QAM 01/29/22 09/03/24 History 62.5 mcg-vilant 25 mcg inhalat.powder (Trelegy Ellipta) furosemide 20 mg tablet 20 mg PO QAM 01/29/22 09/03/24 History potassium chloride 20 mEq 20 meq PO QAM 01/29/22 09/03/24 History tablet,extended release(part/cryst) Portable Oxygen #1 ea 03/20/24 04/29/24 Rx Past Med/Surg History Problem List (Updated 09/03/24 @ 09:39 by Sergey Benitez M.D.) Acute and chronic respiratory failure with hypoxia (Acute) Pulmonary nodule Abnormal CXR Pneumonia Acute exacerbation of chronic obstructive pulmonary disease (Acute) Acute hypoxic respiratory failure (Acute) Hypomagnesemia COPD exacerbation (Acute) Chronic diastolic heart failure Prediabetes Chronic respiratory failure with hypoxia, on home O2 therapy (Chronic) Pulmonary hypertension Adenomatous colon polyp COPD (chronic obstructive pulmonary disease) Osteoporosis Medical History NAFLD (nonalcoholic fatty liver disease) Chronic diastolic heart failure Prediabetes Nephrolithiasis Chronic respiratory failure with hypoxia, on home O2 therapy On home oxygen therapy 2L during the day and 3L N/C hs Adenomatous colon polyp Pulmonary hypertension Osteoporosis COPD (chronic obstructive pulmonary disease) Surgical History History of tooth extraction all teeth Hx of colonoscopy with polypectomy 2009, 2010, 2011, 2014, 2016, 2017, 2018, 2021 History of tubal ligation Family History Mother Colon cancer Sister , age 18 Leukemia Sister , age 55 Lung cancer Son Colon cancer Other No family history of adverse response to anesthesia Social History Smoking Status: Former smoker Cigarettes Per Day: 15; Second Hand Exposure: No; Do You Dip or Chew Tobacco: No; Hx Alcohol Use: No Hx Substance Use: No Preferred Language: Swazi Communication Ability: Effective Visual Impairment: No Limitations Roadway Technician Required: No Beliefs That Will Affect Care: None marital status: Current Living Situation: Spouse Feels Safe at Home: Yes Assistive Devices: Oxygen - Continuous Review of Systems Review of Systems: All systems reviewed & are unremarkable except as noted in HPI & below Physical Exam Constitutional: WD/WN, vitals as above Eyes: PERRL, conjunctivae normal, anicteric sclerae ENMT: external ear and nose normal, oropharynx normal Neck: trachea midline, no thyromegaly Respiratory: normal respiratory effort, lungs clear to auscultation Auscultation: + diminished lung sounds Cardiovascular: RRR, no murmur, no edema Extremities: + edema (+2 b/l le edema) Gastrointestinal (Abdomen): normal bowel sounds, soft, nontender, no hepatosplenomegaly Musculoskeletal: no cyanosis or clubbing, extremities motor strength 5/5 Skin: no rashes, warm and dry Neurologic: patellar DTR's 2+ bilat, sensation intact Psychiatric: A+Ox3, euthymic affect Lymphatic: no cervical or axillary lymphadenopathy Results & Data Results & Data Vital Signs (Past 12 Hours) Vital Signs Temp Pulse Resp BP Pulse Ox O2 Del Method O2 Flow Rate 09/03/24 10:00 113 H 21 143/67 H 91 Nasal Cannula 6 09/03/24 09:30 116 H 22 167/61 H 93 Nasal Cannula 6 09/03/24 09:00 99 H 19 151/66 H 95 09/03/24 08:27 86 09/03/24 08:06 86 21 118/75 90 Nasal Cannula 6 09/03/24 08:04 83 20 91 Nasal Cannula 6 09/03/24 08:04 85 L Nasal Cannula 3 09/03/24 07:50 36.5 C 92 H 26 H 141/80 H 85 L Nasal Cannula 4 Diagnostic Findings Laboratory Results WBC 11.53 K/ul (4.8-10.8) H 09/03/24 08:09 RBC 4.63 M/uL (4.20-5.40) 09/03/24 08:09 Hgb 14.6 g/dl (12.0-16.0) 09/03/24 08:09 Hct 42.0 % (37.0-47.0) 09/03/24 08:09 MCV 90.7 fL (80.0-100.0) 09/03/24 08:09 MCH 31.5 pg (25.0-34.0) 09/03/24 08:09 MCHC 34.8 g/dL (32.0-36.0) 09/03/24 08:09 RDW Std Deviation 44.8 fL (36.4-46.3) 09/03/24 08:09 RDW Coeff of Elvin 13.3 % (11.5-14.5) 09/03/24 08:09 Plt Count 241 K/uL (130-400) 09/03/24 08:09 MPV 10.8 fL (9.4-12.4) 09/03/24 08:09 Immature Gran % (Auto) 0.3 % 09/03/24 08:09 Neut % (Auto) 88.0 % 09/03/24 08:09 Lymph % (Auto) 3.6 % 09/03/24 08:09 Barry % (Auto) 7.5 % 09/03/24 08:09 Eos % (Auto) 0.2 % 09/03/24 08:09 Baso % (Auto) 0.4 % 09/03/24 08:09 Neut # (Auto) 10.14 K/uL (1.40-6.50) H 09/03/24 08:09 Lymph # (Auto) 0.41 K/uL (1.20-3.40) L 09/03/24 08:09 Barry # (Auto) 0.87 K/uL (0.11-0.59) H 09/03/24 08:09 Eos # (Auto) 0.02 K/uL (0.00-0.50) 09/03/24 08:09 Baso # (Auto) 0.05 K/uL (0.00-0.20) 09/03/24 08:09 Immature Gran # (Auto) 0.04 K/uL (0.01-0.20) 09/03/24 08:09 PT 10.5 Seconds (9.0-12.0) 09/03/24 08:09 INR 1.0 (0.9-1.1) 09/03/24 08:09 VBG pH 7.45 (7.36-7.41) H 09/03/24 08:09 VBG pCO2 39 mmHg (38-50) 09/03/24 08:09 VBG pO2 63 mmHg 09/03/24 08:09 VBG HCO3 27 mmol/L 09/03/24 08:09 VBG O2 Saturation 93.0 % 09/03/24 08:09 VBG Base Excess 3.0 mEq/L 09/03/24 08:09 Sodium 138 mmol/L (136-145) 09/03/24 08:09 Potassium 4.1 mmol/L (3.5-5.1) 09/03/24 08:09 Chloride 103 mmol/L (98-107) 09/03/24 08:09 Carbon Dioxide 28 mmol/L (21-32) 09/03/24 08:09 Anion Gap 7 (3-11) 09/03/24 08:09 BUN 14 mg/dl (6-23) 09/03/24 08:09 Creatinine 0.86 mg/dl (0.6-1.2) 09/03/24 08:09 Est Cr Clr Drug Dosing 71.4 ml/min 09/03/24 08:09 eGFR 70.85 09/03/24 08:09 BUN/Creatinine Ratio 16.3 (10-20) 09/03/24 08:09 Glucose 129 mg/dl (70-99(Fasting)) H 09/03/24 08:09 Calcium 9.2 mg/dl (8.6-10.3) 09/03/24 08:09 Magnesium 1.8 mg/dl (1.7-2.4) 09/03/24 08:09 Total Bilirubin 2.1 mg/dl (0.2-1.0) H 09/03/24 08:09 AST 23 U/L (13-39) 09/03/24 08:09 ALT 38 U/L (7-52) 09/03/24 08:09 Alkaline Phosphatase 73 U/L (34-104) 09/03/24 08:09 Troponin I High Sens 9.7 pg/ml (0-14) 09/03/24 10:01 Total Protein 6.6 gm/dl (6.0-8.3) 09/03/24 08:09 Albumin 4.0 gm/dl (3.4-5.0) 09/03/24 08:09 Globulin 2.6 gm/dl (2.5-4.0) 09/03/24 08:09 Albumin/Globulin Ratio 1.5 (0.9-2) 09/03/24 08:09 Urine Color Yellow 09/03/24 09:13 Urine Appearance Clear (Clear) 09/03/24 09:13 Urine pH 6.0 (4.5-7.5) 09/03/24 09:13 Ur Specific [place] 1.007 (1.000-1.030) 09/03/24 09:13 Urine Protein Negative (Negative) 09/03/24 09:13 Urine Glucose (UA) Negative (Negative) 09/03/24 09:13 Urine Ketones Negative (Negative) 09/03/24 09:13 Urine Blood Negative (Negative) 09/03/24 09:13 Urine Nitrite Negative (Negative) 09/03/24 09:13 Urine Bilirubin Negative (Negative) 09/03/24 09:13 Urine Urobilinogen Negative (Negative) 09/03/24 09:13 Ur Leukocyte Esterase Negative (Negative) 09/03/24 09:13 Adenovirus (PCR) Not Detected (NotDetected) 09/03/24 08:09 B. pertussis DNA (PCR) Not Detected (NotDetected) 09/03/24 08:09 B.parapertussis DNA PCR Not Detected (NotDetected) 09/03/24 08:09 C. pneumoniae DNA (PCR) Not Detected (NotDetected) 09/03/24 08:09 Coronavirus OC43 (PCR) Not Detected (NotDetected) 09/03/24 08:09 Coronavirus HKU1 (PCR) Not Detected (NotDetected) 09/03/24 08:09 Coronavirus 229E (PCR) Not Detected (NotDetected) 09/03/24 08:09 SARS-CoV-2 (PCR) Not Detected (NotDetected) 09/03/24 08:09 Coronavirus NL63 (PCR) Not Detected (NotDetected) 09/03/24 08:09 Human Metapneumovir PCR Not Detected (NotDetected) 09/03/24 08:09 Influenza Type A (PCR) Not Detected (NotDetected) 09/03/24 08:09 Influenza Type B (PCR) Not Detected (NotDetected) 09/03/24 08:09 M. pneumoniae (PCR) Not Detected (NotDetected) 09/03/24 08:09 Parainfluenza 1 (PCR) Not Detected (NotDetected) 09/03/24 08:09 Parainfluenza 2 (PCR) Not Detected (NotDetected) 09/03/24 08:09 Parainfluenza 3 (PCR) Not Detected (NotDetected) 09/03/24 08:09 Parainfluenza 4 (PCR) Not Detected (NotDetected) 09/03/24 08:09 RSV (PCR) Not Detected (NotDetected) 09/03/24 08:09 Entero/Rhino (PCR) Not Detected (NotDetected) 09/03/24 08:09 Impressions Chest X-Ray 09/03/24 07:53 XR chest 1V portable HISTORY: 74 years-old Female Dyspnea acute shortness of breath COMPARISON: Chest CT 04/29/2024 TECHNIQUE: AP view of the chest FINDINGS: Cardiac silhouette is mildly enlarged. Atherosclerosis of the aorta. No overt pulmonary edema. Emphysema with chronic interstitial coarsening. Mild subsegmental bibasilar opacities. Degenerative changes of the shoulders and spine. IMPRESSION: 1. Cardiomegaly without overt pulmonary edema. 2. Emphysema with chronic interstitial coarsening. 3. Mild bibasilar opacities suggest atelectasis/scarring. A mild pneumonitis considered less likely. ACT 112: Negative or not required by law. The above report was generated using voice recognition software. It may contain grammatical, syntax or spelling errors. Electronically signed by: Justyn Garcia M.D. 09/03/2024 8:45 AM Supervising Physician Co-Signing Physician Notes Attending Addendum: Case reviewed with the advanced practitioner. I have personally performed a history and physical examination on the patient. I have reviewed the advanced practitioner's documentation on the date of service referenced in note, and I agree with, and take responsibility for the plan of care. please refer to her notes for full details patient seen and examined, records reviewed by myself as well on exam, patient seen resting in bed, comfortable on 4 L O2 states breathing and cough has been improving since admission had fever/chills overnight no other symptoms VS noted and reviewed oriented x 3, not in distress, speaks in sentences with no effort nor accessory muscle use mild wheeze BL, no crackles clear breath sounds bilaterally non distended, soft, nontender mild bipedal edema, erythema, warmth no neuro deficits all labs, imaging noted and reviewed ASSESSMENT AND PLAN> COPD EXACERBATION POSSIBLE BILATERAL LOWER LOBE PNEUMONIA fever/chills, productive cough at home Biofire negative CXR: (+) mild BL lower lobe pneumonia Solumedrol 40mg q8h Xopenex/Atrovent QID Cefepime + Azithro Incentive spirometry, Flutter Valve other diagnoses and plan of care as per advanced practitioner's notes Kit Gooden MD (5) COPD (chronic obstructive pulmonary disease) COPD type: unspecified COPD Qualified Code(s): J44.9 - Chronic obstructive pulmonary disease, unspecified
--- OUTSIDE RECORDS SUMMARY | 2024-09-03 11:58 | External Medical Summary | Summary of Care ---
Author Name Unknown Organization [facility] Address [address] [place] [address] Phone [phone] Care Team Providers Care Washer Off Name Role Phone Maria Leal MD Primary Care Provider [phone]- [phone] Reason for Visit * Reason Onset Date Comments eRx-Medication Refill Status Check 08/08/2024 Encounter Details Date Type Department Care Team (Late st Contact Info) Description 08/08/2024 Refill [facility] [place] [address] [place] [address] Maria Leal MD [address] [place] [address] COPD, moderate (HCC) Allergies No known active allergiesdocumented as of this encounter (statuses as of 08/26/2024) Medications Medication Sig Dispensed Refills Start Date End Date Status Vitamin D 25 MCG (1000 UT) Oral Tablet Take by mouth. Active Benzonatate 100 MG Oral Capsule (Tessalon Perles)Indicatio ns:Upper respiratory tract infection, unspecified type Take 1 Cap by mouth 3 times a day as needed for Cough. 30 Cap 1 03/21/20 21 Active Additional Information Patient not taking.Reported on 03/01/2023 Atorvastatin Calcium 20 MG Oral Tablet (Lipitor)Indicat ions:Dyslipidemi a Take 1 Tablet by mouth in the morning. 90 Tablet 3 09/10/20 23 Active Potassium Chloride Flaquita ER 20 MEQ Oral Tablet Extended ReleaseIndicatio ns:Chronic diastolic heart failure (HCC) TAKE ONE TABLET BY MOUTH EVERY DAY WITH EACH DOSE OF FUROSEMIDE 90 Tablet 3 09/10/20 23 Active Albuterol Sulfate HFA 108 (90 Base) MCG/ACT Inhalation Aerosol SolutionIndicati ons:COPD, moderate (HCC) INHALE 2 PUFFS BY MOUTH EVERY 4 HOURS NEEDED WHEEZING 18 g 5 09/10/20 23 Active predniSONE 10 MG Oral Tablet (Deltasone)Indic ations:COPD exacerbation (HCC) Take 5 tabs for 2 days, 4 tabs for 2 days, 3 tabs for 2 days, 2 tabs for 2 days 1 tab for 2 days 30 Tablet 11/15/20 23 Active Additional Information Patient not taking.Reported on 03/09/2024 Doxycycline Hyclate 100 MG Oral CapsuleIndicatio ns:COPD exacerbation (HCC) Take 1 Capsule by mouth in the morning and 1 Capsule before bedtime. Until gone.. 20 Capsule 11/15/20 23 Active guaiFENesin-Code ine 100-10 MG/5ML Oral SolutionIndicati ons:COPD exacerbation (HCC) Take 5 mL by mouth 4 times a day as needed for Congestion or Cough. 60 mL 11/15/20 23 Active Furosemide 20 MG Oral Tablet (Lasix)Indicatio ns:Chronic diastolic heart failure (HCC) TAKE ONE TABLET BY MOUTH EVERY DAY NEEDED EDEMA 90 Tablet 2 02/12/20 24 Active Zepbound 2.5 MG/0.5ML Subcutaneous Solution Auto-injector ([facility] t [facility])Indic ations:Prediabet es,Class 2 severe obesity with serious comorbidity and body mass index (BMI) of 36.0 to 36.9 in adult, unspecified obesity type (HCC) Inject 2.5 mg subcutaneously once per week. 2 mL 5 03/09/20 24 Active Trelegy Ellipta 100-62.5-25 MCG/ACT Aerosol Powder Breath Activated (Fluticasone-Ume clidinium-Vilant derrick)Indications :COPD, moderate (HCC) Inhale 1 Puff by mouth in the morning. 180 Each 3 09/10/20 23 024 Discontinued Trelegy Ellipta 100-62.5-25 MCG/ACT Aerosol Powder Breath Activated (Fluticasone-Ume clidinium-Vilant derrick)Indications :COPD, moderate (HCC) INHALE 1 PUFF BY MOUTH EVERY MORNING 180 Each 3 08/10/20 24 024 Discontinued(Re fill) Trelegy Ellipta 100-62.5-25 MCG/ACT Aerosol Powder Breath Activated (Fluticasone-Ume clidinium-Vilant derrick)Indications :COPD, moderate (HCC) INHALE 1 PUFF BY MOUTH EVERY MORNING 180 Each 3 08/14/20 24 024 Discontinued(Re fill) documented as of this encounter (statuses as of 08/26/2024) Active Problems Problem Noted Date Diagnosed Date Dyslipidemia 03/23/2024 COPD, group B, by GOLD 2017 classification 11/12 Overview: Per COPD GOLD Classification Chronic respiratory failure with hypoxia, on home O2 therapy 08/24/2021 NAFLD (nonalcoholic fatty liver disease) 020 Prediabetes 09/14/2019 Overview: Per Prediabetes protocol Chronic diastolic heart failure 08/12/2019 History of adenomatous polyp of colon 05/11/2019 Other osteoporosis without current pathological fracture 11/01/2005 Overview: ICD-10 update of inactive term documented as of this encounter (statuses as of 08/26/2024) Resolved Problems Problem Noted Date Diagnosed Date Resolved Date Chronic kidney disease, stage 3a 09/11/2021 09/10/2023 Overview: Per CKD protocol COPD, group A, by GOLD 2017 classification 09/14/2019 11/15/2022 Overview: Per COPD GOLD Classification COPD, moderate 12/23/2009 09/16/2019 Menopause 11/12/2008 05/08/2018 Overview: Late 30s documented as of this encounter (statuses as of 08/26/2024) Immunizations Name Administration Dates Next Due COVID-19 mRNA, LNP-s, No Pre serve, 2-Dose Series (Moderna) 07/18/2021,06/20/2021 Pneumococcal Conjugate Vacc, 13 Valent (Prevnar) 09/30/2015 Pneumococcal Polysaccharide PPV23 (Pneumovax) 08/12/2017 RSV Vac., Recomb, Adjuvant, PF,0.5 Ml (Arexvy) 01/30/2024 Seasonal Influenza, PF, 6 M & above, IM , (FluLaval or Fluzone) 08/23/2020,08/25/2019,08/18/2018 Seasonal Influenza, Quadriva lent Hd (Fluzone Hd) 09/10/2023,09/11/2022 Seasonal Influenza, Quadriva lent, No Preserve, IM 09/30/2015 Seasonal Influenza, Trivalen t, (IIV3), with Preserv, (Fluzone) 08/12/2017 TD, Preservative Free 03/01/2023 TDAP, Age 7 and older, IM (Adacel) 11/12/2008 Zoster Vaccine Recombinant (Shingrix) 05/25/2022 ,02/15/2022 documented as of this encounter Social History Tobacco Use Types Packs/Day Years Used Date Smoking Tobacco: Former Cigarettes 0.8 40 1 12/02/1966 - 10/02/2007 Smokeless Tobacco: Never Alcohol Use Standard Drinks/Week Comments No 0 (1 standard drink = 0.6 oz pur e alcohol) PHQ-2 Answer Date Recorded PHQ Adult Total Score 0 09/12/2023 Hunger Vital Sign Answer Date Recorded Within the past 12 months, y ou worried that your food would run out before you got the money to buy more. Never true 09/11/20 22 Within the past 12 months, t he food you bought just didn't last and you didn't have money to get more. Never true 09/11/2022 Utilities Answer Date Recorded Do you have trouble paying y our heating, water, or electric bill? (Adult - for ages 18 years and over) Not on file 05/19/2024 Is your family able to pay t he heat, water, or electric bill? (Household - for ages 0-17 years) Not on file 05/19/2024 Does your family have access to good internet? (Household - for ages 0-17 years) Not on file 05/19/2024 Social Connections Answer Date Recorded How often do you feel lonely or isolated from those around you? (Adult - for ages 18 years and over) Not on file 05/19/2024 Sex and Gender Information Value Date Recorded Sex Assigned at Female 08/25/2019 8:25 AM EDT Gender Identity Female 08/25/2019 8:25 AM EDT Sexual Orientation Not on file Job Start Date Occupation Industry Not on file Not on file Not on file documented as of this encounter Miscellaneous Notes * Telephone Encounter - Callie Díaz PHARM Tech - 08/26/2024 10:12 AM EDT Called [facility] and there is a good PA until January 2025. Called pharmacy back and they ran it again andit went through . Callie Perez Propeller Engineer III [facility] 08/26/2024,10:22 AM * Telephone Encounter - Jodi Long PHARM Tech - 08/25/2024 3:24 PM EDT Patient calling to inform doctor that the patient's insurance will not pay for this medication without a completed prior authorization. Did confirm this information with the pharmacy. Pt's current insurance information is as follows: Patient name: Elida Cotter ID number: [id number] BIN number: [id number] PCN number: [id number] Group number: [id number] Subscriber name: Elida Cotter Primary or Secondary Insurance:Secondary Medication: Trelegy Ellipta 100-62.5-25 MCG/ACT Aerosol Powder Breath Activated (Oswyulmlnps-Sczjnfxrdaxb-Efoqqlihre) Reason for Request: needs pa Pharmacy and phone number: [id number] [id number] [facility] Rx plan and phone number: CORAL Is this a new medication for the patient? No. How did the patient obtain the medication on the lastfill? It was covered last time on this same insurance. What alternative medications does the pharmacy have in stock?: n/a Jodi Perez Prisoner Classification Interviewer [facility] 08/25/2024,3:27 PM * Telephone Encounter - India Garcia CPhT - 08/19/2024 10:05 AM EDT Pt calling in to check status of form for her trelegy. Please advise. Thank you, India Garcia CPhT Propeller Engineer III [facility] 08/19/2024, 10:05 AM * Telephone Encounter - Arielle Washburn CPhT - 08/14/2024 1:51 PM EDT Pt is calling regarding Trelegy Ellipta 100-62.5-25 MCG/ACT Aerosol Powder Breath Activated (Mxxiienrtbu-Hrlffhhachrp-Sgpjgslpbu). Caller states her pharmacy is sending over a fax that has to be completed regarding the medication. Please advise. Thank you, Torri Washburn CPhT Analytical Technician III [facility] ([facility]) [address] [place] [address], [facility] [address] * Telephone Encounter - Higinio Bustos [facility] - 08/14/2024 11:20 AM EDTSigned Prescriptions: Disp Refills Trelegy Ellipta 100-62.5-25 MCG/ACT Aeroso*180 Ea*3 Sig: INHALE1 PUFF BY MOUTH EVERY MORNINGAuthorizing Provider: MARIA LEAL User: HIGINIO BUSTOS * Addendum Note - Higinio Bustos RPh - 08/14/2024 11:20 AM EDTAddended by: HIGINIO BUSTOS on: 08/14/2024 11:20 AM Modules accepted: Orders * Telephone Encounter - Higinio Bustos [facility] - 08/14/2024 11:20 AM EDT Resent to pharmacy as requested. Thank you, Higinio Bustos, PharmD Clinical Pharmacist [facility]) 08/14/24 11:20 AM [phone] * Addendum Note - Higinio Bustos [facility] - 08/14/2024 11:18 AM EDTAddended by: HIGINIO BUSTOS on: 08/14/2024 11:18 AM Modules accepted: Orders * Telephone Encounter - Ofe Kahn CPhT - 08/14/2024 10:57 AM EDT Please resend Rx to [id number]. Confirmed pharmacy did not receive original prescription. Signed Prescriptions: Disp Refills Trelegy Ellipta 100-62.5-25 MCG/ACT Aeroso*180 Ea*3 Sig: INHALE 1 PUFF BY MOUTH EVERY MORNING Authorizing Provider: MARIA LEAL Last Visit: 03/09/2024 (in office), 03/21/2021 (telemedicine) 10/07/2024 If no future appointments scheduled, and last appointment is greater than a year ago, please schedule patient for a follow-up appointment Last date the medication was ordered: 08/10/24 Patient Phone Numbers Labs: Lab Results Component Value Date/Time CREAT 1.0 03/04/2024 09:12 AM CREAT 1.0 08/29/2020 09:09 AM POTASSIUM 4.7 03/04/2024 09:12 AM POTASSIUM 4.6 08/29/2020 09:09 AM TSH 1.94 08/29/2020 09:09 AM LDL 85 03/04/2024 09:12 AM LDL 113 05/11/2019 09:54 AM LDL NOT APPLICABLE 05/11/2019 09:54 AM ALT 60 (H) 03/04/2024 09:12 AM ALT 82 (H) 08/29/2020 09:09 AM HGBA1C 5.9 (H) 03/04/2024 09:12 AM HGBA1C 6.0 (H) 08/29/2020 09:09 AM * Telephone Encounter - Becky Nagy [facility] - 08/10/2024 2:45 PM EDT Signed Prescriptions: Disp Refills Trelegy Ellipta 100-62.5-25 MCG/ACT Aeroso*180 Ea*3 Sig: INHALE 1 PUFF BY MOUTH EVERY MORNINGAuthorizing Provider: MARIA LEAL * Telephone Encounter - Maria Leal MD - 08/10/2024 1:22 PM EDTSigned Prescriptions: Disp Refills Trelegy Ellipta 100-62.5-25 MCG/ACT Aeroso*180 Ea*3 Sig: INHALE 1 PUFF BY MOUTH EVERY MORNINGAuthorizing Provider: MARIA LEAL * Telephone Encounter - Interface, E-Rx Ss Inbound - 08/10/2024 9:21 AM EDT Pending Prescriptions: Disp Refills Trelegy Ellipta 100-62.5-25 MCG/ACT Aeroso* 0 Sig: INHALE 1 PUFF BY MOUTH EVERY MORNING documented in this encounter Plan of Treatment Upcoming Encounters Date Type Department Care Team (Late st Contact Info) Description 10/05/2024 9:00 AM EST Nurse Only Ancillary Department, [place] [address] [place] [facility] [place] [address] [place], Nurse Annual Wellness [address] [facility] [place] [id number] 10/07/2024 9:00 AM EST Office Visit Family [facility], [place] [address] [place] [facility] [place] [phone] Maria Leal MD [address] [place] [facility] [place] [address] Scheduled Procedures Name Priority Associated Diagnoses Date/Ti me COLONOSCOPY FLEXIBLE PROXIMAL DIAGNOSTIC Recall History of colon polyps Health Maintenance Due Date Last Done Comments Alpha-1 Antitrypsin 1968 Cologuard 1995 Fecal Occult Blood Test 1995 Sigmoidoscopy 1995 *BISPHONATE OR OTHER ACCEPTABLE MEDICATION NEEDED FOR OSTEOPOROSIS (REFER TO SMARTSET #1146) 09/07/2015 DXA Scan 06/03/2021 06/03/2019, 01/2019, 09/14/2015, Additional history exists Mammogram 08/24/2023 08/24/2022, 08/03, 08/22/2021, Additional history exists Colonoscopy 02/03/2024 02/02/2022, 06/2019, 07/08/2019, Additional history exists Colorectal Cancer Screening 02/03/2024 COVID-19 Vaccine ( season) 2024 07/18/2021, 06/20/2021 Influenza Vaccine (FLU shot) (#1) 2024 09/10/2023, 09/11/2022, 09/01/2021, Additional history exists Adult Wellness Visit 09/12/2024 09/12/2023, 09/11/20 Depression Screening 09/12/2024 09/12/2023 HbA1c 03/04/2025 03/04/2024, 02/01, 08/24/2022, Additional history exists O2 ASSESSMENT COMPLETED IN PAST YEAR FOR COPD 03/09/2025 03/09/2024 Lipid Panel 03/04/2029 03/04/2024, 08/03, 11/28/2021, Additional history exists DTap/Tdap Vaccines (3 - Td or Tdap) 03/01/2033 03/01/2023, 11/12/2008 Pneumococcal Vaccine: 65+ Years Completed 08/12/2017, 09/30/2015 RETIRED - COLONOSCOPY-EVERY 2 YRS AGES 18-100 Discontinued 02/02/2022, 07/08/2019, 07/08/2019, Additional history exists Zoster Vaccines Completed 05/25/2022, 02/15/2022 VITAMIN D LEVEL ONCE IN A LIFETIME-USE SMARTSET# 26959 Completed 08/24/2022, 08/23/2020, 12/23/2009 Albumin/Creatinine Ratio Discontinued 03/04/2024, 09/01 HPV (Gardasil) Vaccine Aged Out No lo nger eligible based on patient's age to complete this topic Hepatitis B Vaccine Aged Out No longe r eligible based on patient's age to complete this topic MENINGOCOCCAL (MENACTRA/MENVEO) Aged Out No longer eligible based on patient's age to complete this topic documented as of this encounter Medical Devices Not on filedocumented as of this encounter Visit Diagnoses Diagnosis COPD, moderate (HCC) Chronic airway obstruction, not elsewhere classified documented in this encounter Care Teams Washer Off Relationship Specialty Start Date End Date Maria Leal MD [address] [place] [address] PCP - General Family Medicine 05/08/18 documented as of this encounter
--- OUTSIDE RECORDS SUMMARY | 2024-09-03 11:58 | External Medical Summary | Summary of Care ---
Author Name Unknown Organization [facility] Address [address] [place] [address] Phone [phone] Care Team Providers Care Data Warehousing Architect Name Role Phone Maria Leal MD Primary Care Provider [phone]- [phone] Reason for Visit * Reason Onset Date Comments eRx-Medication Refill Status Check 08/08/2024 Encounter Details Date Type Department Care Team (Late st Contact Info) Description 08/08/2024 Refill [place] [facility] [address] [place] [address] Maria Leal MD [address] [place] [address] COPD, moderate (HCC) Allergies No known active allergiesdocumented as of this encounter (statuses as of 08/25/2024) Medications Medication Sig Dispensed Refills Start Date [...] 2.5 MG/0.5ML Subcutaneous Solution Auto-injector ([facility])Indic ations:Prediabet es,Class 2 severe obesity with serious [...] as of this encounter (statuses as of 08/25/2024) Active Problems Problem Noted Date Diagnosed Date [...] as of this encounter (statuses as of 08/25/2024) Resolved Problems Problem Noted Date Diagnosed Date Resolved Date Chronic kidney disease, stage 3a 09/11/2021 09/10/2023 Overview: Per CKD protocol COPD, group A, by GOLD 2017 classification 09/14/2019 11/15/2022 Overview: Per COPD GOLD Classification COPD, moderate 12/23/2009 09/16/2019 Menopause 11/12/2008 05/08/2018 Overview: Late 30s documented as of this encounter (statuses as of 08/25/2024) Immunizations Name Administration Dates Next Due COVID-19 [...] encounter Miscellaneous Notes * Telephone Encounter - Jodi Long PHARM Tech - 08/25/2024 3:24 PM EDT Patient calling to inform doctor that the patient's insurance will not pay for this medication without a completed prior authorization. Did confirm this information with the pharmacy. Pt's current insurance information is as follows: Patient name: Elida Cotter ID number: [id number] BIN number: [id number] PCN number: [id number] Group number: CORAL Subscriber name: Elida Cotter Primary or Secondary Insurance:Secondary Medication: Trelegy Ellipta 100-62.5-25 MCG/ACT Aerosol Powder Breath Activated (Ppfptseylpx-Elcfvxmodgon-Wtqxnkqlen) Reason for Request: needs pa Pharmacy and phone number: [facility] [id number] [facility] Rx plan and phone number: [facility] Is this a new medication for the patient? No. How did the patient obtain the medication on the lastfill? It was covered last time on this same insurance. What alternative medications does the pharmacy have in stock?: n/a Thanks, Jodi Long Clinical Lab Technologist [facility] 08/25/2024,3:27 PM * Telephone Encounter - India Garcia CPhT - 08/19/2024 10:05 AM EDT Pt calling in to check status of form for her trelegy. Please advise. Thank you, India Garcia CPhT Makeup Sales Advisor III [facility] 08/19/2024, 10:05 AM * Telephone Encounter - Arielle Washburn CPhT - 08/14/2024 1:51 PM EDT Pt is calling regarding Trelegy Ellipta 100-62.5-25 MCG/ACT Aerosol Powder Breath Activated (Iixlqobpkwm-Wadusqidlysj-Gozxibwmer). Caller states her pharmacy is sending over a fax that has to be completed regarding the medication. Please advise. Thank you, Torri Washburn CPhT Workers' Compensation Hearings Officer III [facility] [address] [place] [address], [address] * Telephone Encounter - Higinio Bustos [facility] - 08/14/2024 11:20 AM EDTSigned Prescriptions: Disp Refills Trelegy Ellipta 100-62.5-25 MCG/ACT Aeroso*180 Ea*3 Sig: INHALE 1 PUFF BY MOUTH EVERY MORNINGAuthorizing Provider: MARIA LEAL User: HIGINIO BUSTOS * Addendum Note - Higinio Bustos [facility] - 08/14/2024 11:20 AM EDTAddended by: HIGINIO BUSTOS on: 08/14/2024 11:20 AM Modules accepted: Orders * Telephone Encounter - Higinio Bustos [facility] - 08/14/2024 11:20 AM EDT Resent to pharmacy as requested. Thank you, Higinio Bustos, PharmD Clinical Pharmacist [facility] ([facility]) 08/14/24 11:20 AM [phone] * Addendum Note - Higinio Bustos [facility] - 08/14/2024 11:18 AM EDTAddended by: HIGINIO BUSTOS on: 08/14/2024 11:18 AM Modules accepted: Orders * Telephone Encounter - Ofe Kahn CPhT - 08/14/2024 10:57 AM EDT Please resend Rx to [facility] [id number]. Confirmed [...] AM * Telephone Encounter - Becky Nagy RP - 08/10/2024 2:45 PM EDT Signed Prescriptions: [...] Date Type Department Care Team (Late st [facility] Info) Description 10/05/2024 9:00 AM EST Nurse Only Ancillary Department, [place] [address] [facility] [id number] [place], Nurse [facility] [address] [facility] [address] 10/07/2024 9:00 AM EST Office Visit Family Practice, [place] [address] [facility] [phone] Maria Leal MD [address] [facility] [phone] Scheduled Procedures Name Priority Associated Diagnoses Date/Ti [...] exists Adult Wellness Visit 09/12/2024 09/12/2023, 09/11/20 22 Depression Screening 09/12/2024 09/12/2023 HbA1c 03/04/2025 03/04/2024, [...] D LEVEL ONCE IN A LIFETIME-USE SMARTSET# [id number] Completed 08/24/2022, 08/23/2020, 12/23/2009 Albumin/Creatinine Ratio Discontinued [...] classified documented in this encounter Care Teams Data Warehousing Architect Relationship Specialty Start Date End Date Maria Leal MD [address] [place] [address] PCP - General Family Medicine 05/08/18 documented as of this encounter
--- OUTSIDE RECORDS SUMMARY | 2024-09-03 11:58 | External Medical Summary | Summary of Care ---
Author Name Unknown Organization [facility] Address [address] [place] [address] Phone [phone] Care Team Providers Care Field Operations Coordinator Name Role Phone Virgilio Gallegos MD Primary Care Provider [phone]- [phone] Reason for Visit * Reason Onset Date Comments Pre Cert/Prior Auth 08/27/2024 La gil pta Encounter Details Date Type Department Care Team ([facility] st Contact Info) Description 08/27/2024 Telephone [facility] [address] [place] [address] Virgilio Gallegos MD [address] [place] [address] Pre Cert/Prior Auth (La chopra) Allergies No known active allergiesdocumented as of this encounter (statuses as of 08/27/2024) Medications Medication Sig Dispensed Refills Start Date End Date Status Vitamin D 25 MCG (1000 UT) Oral Tablet Take by mouth. Active Benzonatate 100 MG Oral Capsule (Tessalon Perles)Indications :Upper respiratory tract infection, unspecified type Take 1 Cap by mouth 3 times a day as needed for Cough. 30 Cap 1 03/21/2021 Active Additional Information Patient not taking.Reported on 03/01/2023 Atorvastatin Calcium 20 MG Oral Tablet (Lipitor)Indicatio ns:Dyslipidemia Take 1 Tablet by mouth in the morning. 90 Tablet 3 09/10/2023 Active Potassium Chloride Flaquita ER 20 MEQ Oral Tablet Extended ReleaseIndications :Chronic diastolic heart failure (HCC) TAKE ONE TABLET BY MOUTH EVERY DAY WITH EACH DOSE OF FUROSEMIDE 90 Tablet 3 09/10/2023 Active Albuterol Sulfate HFA 108 (90 Base) MCG/ACT Inhalation Aerosol SolutionIndication s:COPD, moderate (HCC) INHALE 2 PUFFS BY MOUTH EVERY 4 HOURS NEEDED WHEEZING 18 g 5 09/10/2023 Active predniSONE 10 MG Oral Tablet (Deltasone)Indicat ions:COPD exacerbation (HCC) Take 5 tabs for 2 days, 4 tabs for 2 days, 3 tabs for 2 days, 2 tabs for 2 days 1 tab for 2 days 30 Tablet 11/15/2023 Active Additional Information Patient not taking.Reported on 03/09/2024 Doxycycline Hyclate 100 MG Oral CapsuleIndications :COPD exacerbation (HCC) Take 1 Capsule by mouth in the morning and 1 Capsule before bedtime. Until gone.. 20 Capsule 11/15/2023 Active guaiFENesin-Codein e 100-10 MG/5ML Oral SolutionIndication s:COPD exacerbation (HCC) Take 5 mL by mouth 4 times a day as needed for Congestion or Cough. 60 mL 11/15/2023 Active Furosemide 20 MG Oral Tablet (Lasix)Indications :Chronic diastolic heart failure (HCC) TAKE ONE TABLET BY MOUTH EVERY DAY NEEDED EDEMA 90 Tablet 2 02/12/2024 Active Zepbound 2.5 MG/0.5ML Subcutaneous Solution Auto-injector (Tirzepatide-Weigh t Management)Indicat ions:Prediabetes,C lass 2 severe obesity with serious comorbidity and body mass index (BMI) of 36.0 to 36.9 in adult, unspecified obesity type (HCC) Inject 2.5 mg subcutaneously once per week. 2 mL 5 03/09/2024 Active Trelegy Ellipta 100-62.5-25 MCG/ACT Aerosol Powder Breath Activated (Fluticasone-Umecl idinium-Vilanterol )Indications:COPD, moderate (HCC) INHALE 1 PUFF BY MOUTH EVERY MORNING 180 Each 3 08/19/2024 Active documented as of this encounter (statuses as of 08/27/2024) Active Problems Problem Noted Date Diagnosed Date [...] as of this encounter (statuses as of 08/27/2024) Resolved Problems Problem Noted Date Diagnosed Date Resolved Date Chronic kidney disease, stage 3a 09/11/2021 09/10/2023 Overview: Per CKD protocol COPD, group A, by GOLD 2017 classification 09/14/2019 11/15/2022 Overview: Per COPD GOLD Classification COPD, moderate 12/23/2009 09/16/2019 Menopause 11/12/2008 05/08/2018 Overview: Late 30s documented as of this encounter (statuses as of 08/27/2024) Immunizations Name Administration Dates Next Due COVID-19 [...] encounter Miscellaneous Notes * Telephone Encounter - Idalmis Vyas LPN - 08/27/2024 10:11 AM EDT Form from [facility] for prior auth for La Chopra was signed and faxed back to [facility]. documented in this encounter Plan of Treatment Upcoming Encounters Date Type Department Care Team (Late st Contact Info) Description 10/05/2024 9:00 AM EST Nurse Only Ancillary Department, [address] [address] [place], Nurse [facility] [address] [facility] [place] [address] 10/07/2024 9:00 AM EST [facility] [place] [address] [place] [address] [phone] Virgilio [facility] [address] [facility] [place] [address] Scheduled Procedures Name Priority Associated Diagnoses Date/Ti [...] D LEVEL ONCE IN A LIFETIME-USE SMARTSET# [id number] Completed 08/24/2022, 08/23/2020, 12/23/2009 Albumin/Creatinine Ratio Discontinued [...] Not on filedocumented as of this encounter Care Teams Field Operations Coordinator Relationship Specialty Start Date End Date Virgilio Gallegos MD [address] [place] [address] PCP - General Family Medicine 05/08/18 documented as of this encounter
--- OUTSIDE RECORDS SUMMARY | 2024-09-03 11:58 | External Medical Summary | Summary of Care ---
Author Name Unknown Organization [facility] Address [address] [place] [address] Phone [phone] Care Team Providers Care Investigation Division Lieutenant Name Role Phone Virgilio Gallegos MD Primary Care Provider [phone]- [phone] Encounter Details Date Type Department Care Team (Late st Contact Info) Description 08/24/2024 Telephone [facility] [address] [place] [address] Virgilio Gallegos MD [address] [place] [address] Allergies No known active allergiesdocumented as of this encounter (statuses as of 08/24/2024) Medications Medication Sig Dispensed Refills Start Date [...] as of this encounter (statuses as of 08/24/2024) Active Problems Problem Noted Date Diagnosed Date [...] as of this encounter (statuses as of 08/24/2024) Resolved Problems Problem Noted Date Diagnosed Date Resolved Date Chronic kidney disease, stage 3a 09/11/2021 09/10/2023 Overview: Per CKD protocol COPD, group A, by GOLD 2017 classification 09/14/2019 11/15/2022 Overview: Per COPD GOLD Classification COPD, moderate 12/23/2009 09/16/2019 Menopause 11/12/2008 05/08/2018 Overview: Late 30s documented as of this encounter (statuses as of 08/24/2024) Immunizations Name Administration Dates Next Due COVID-19 [...] encounter Miscellaneous Notes * Telephone Encounter - Virgilio Gallegos MD - 08/24/2024 5:11 PM EDT Signed - at my desk * Telephone Encounter - Alyssia Boucher MED ASSIST - 08/24/2024 9:33 AM EDT Re[place] forms from the [place] dept of [place], [employer], that requires a signature. Placed on provider's desk. documented in this encounter Plan of Treatment Upcoming Encounters Date Type Department Care Team (Late st Contact Info) Description 10/05/2024 9:00 AM EST Nurse Only [facility], [place] [address] [facility] [phone] [place] [facility] [address] [facility] [place] [address] 10/07/2024 9:00 AM EST [facility] [place] [address] [facility] [phone] [facility] [address] [facility] [phone] Scheduled Procedures Name Priority Associated Diagnoses Date/Ti [...] D LEVEL ONCE IN A LIFETIME-USE SMARTSET# [id number] Completed 08/24/2022, 08/23/2020, 12/23/2009 Albumin/Creatinine Ratio Discontinued [...] filedocumented as of this encounter Care Teams Investigation Division Lieutenant Relationship Specialty Start Date End Date Virgilio Gallegos MD [address] [place] [address] PCP - General Family Medicine 05/08/18 documented as of this encounter
--- OUTSIDE RECORDS SUMMARY | 2024-09-03 11:59 | External Medical Summary | Summary of Care ---
Author Name Unknown Organization [facility] Address [address] [place] [address] Phone [phone] Care Team Providers Care Assistant Grocery Store Manager Name Role Phone Virgilio Leal MD Primary Care Provider +1- [phone] Reason for Visit * Reason Comments eRx-Medication Refill Encounter Details Date Type Department Care Team (Late st Contact Info) Description 08/08/2024 Refill [facility] [address] [place] [address] Virgilio Leal MD [address] [place] [address] COPD, moderate (HCC) Allergies No known active allergiesdocumented as of this encounter (statuses as of 08/14/2024) Medications Medication Sig Dispensed Refills Start Date End Date Status Vitamin D 25 MCG (1000 UT) Oral Tablet Take by mouth. Active Benzonatate 100 MG Oral Capsule (Tessalpenny Perlbennie)Indicatio ns:Upper respiratory tract infection, unspecified type Take 1 Cap by mouth 3 times a day as needed for Cough. 30 Cap 1 1 Active Additional Information Patient not taking.Reported on 03/01/2023 Atorvastatin Calcium 20 MG Oral Tablet (Lipitor)Indicat ions:Dyslipidemi a Take 1 Tablet by mouth in the morning. 90 Tablet 3 3 Active Potassium Chloride Flaquita ER 20 MEQ Oral Tablet Extended ReleaseIndicatio ns:Chronic diastolic heart failure (HCC) TAKE ONE TABLET BY MOUTH EVERY DAY WITH EACH DOSE OF FUROSEMIDE 90 Tablet 3 3 Active Albuterol Sulfate HFA 108 (90 Base) MCG/ACT Inhalation Aerosol SolutionIndicati ons:COPD, moderate (HCC) INHALE 2 PUFFS BY MOUTH EVERY 4 HOURS NEEDED WHEEZING 18 g 5 3 Active predniSONE 10 MG Oral Tablet (Deltasone)Indic ations:COPD exacerbation (HCC) Take 5 tabs for 2 days, 4 tabs for 2 days, 3 tabs for 2 days, 2 tabs for 2 days 1 tab for 2 days 30 Tablet 3 Active Additional Information Patient not taking.Reported on 03/09/2024 Doxycycline Hyclate 100 MG Oral CapsuleIndicatio ns:COPD exacerbation (HCC) Take 1 Capsule by mouth in the morning and 1 Capsule before bedtime. Until gone.. 20 Capsule 3 Active guaiFENesin-Code ine 100-10 MG/5ML Oral SolutionIndicati ons:COPD exacerbation (HCC) Take 5 mL by mouth 4 times a day as needed for Congestion or Cough. 60 mL 3 Active Furosemide 20 MG Oral Tablet (Lasix)Indicatio ns:Chronic diastolic heart failure (HCC) TAKE ONE TABLET BY MOUTH EVERY DAY NEEDED EDEMA 90 Tablet 2 4 Active Zepbound 2.5 MG/0.5ML Subcutaneous Solution Auto-injector (Isa t Management)Indic ations:Prediabet es,Class 2 severe obesity with serious comorbidity and body mass index (BMI) of 36.0 to 36.9 in adult, unspecified obesity type (HCC) Inject 2.5 mg subcutaneously once per week. 2 mL 5 4 Active Trelegy Ellipta 100-62.5-25 MCG/ACT Aerosol Powder Breath Activated (Fluticasone-Ume clidinium-Vilant derrick)Indications :COPD, moderate (HCC) INHALE 1 PUFF BY MOUTH EVERY MORNING 180 Each 3 4 Active Trelegy Ellipta 100-62.5-25 MCG/ACT Aerosol Powder Breath Activated (Fluticasone-Ume clidinium-Vilant derrick)Indications :COPD, moderate (HCC) Inhale 1 Puff by mouth in the morning. 180 Each 3 3 08/10/20 24 Discontinued documented as of this encounter (statuses as of 08/14/2024) Active Problems Problem Noted Date Diagnosed Date [...] as of this encounter (statuses as of 08/14/2024) Resolved Problems Problem Noted Date Diagnosed Date Resolved Date Chronic kidney disease, stage 3a 09/11/2021 09/10/2023 Overview: Per CKD protocol COPD, group A, by GOLD 2017 classification 09/14/2019 11/15/2022 Overview: Per COPD GOLD Classification COPD, moderate 12/23/2009 09/16/2019 Menopause 11/12/2008 05/08/2018 Overview: Late 30s documented as of this encounter (statuses as of 08/14/2024) Immunizations Name Administration Dates Next Due COVID-19 [...] as of this encounter Miscellaneous Notes * Addendum Note - Higinio Bustos RPh - 08/14/2024 11:18 AM EDTAddended by: HIGINIO BUSTOS on: 08/14/2024 11:18 AM Modules accepted: Orders * Telephone Encounter - Ofe Kahn CPhT - 08/14/2024 10:57 AM EDT Please resend Rx to [id number] Confirmed pharmacy did not receive original prescription. Signed Prescriptions: Disp Refills Trelegy Ellipta 100-62.5-25 MCG/ACT Aeroso*180 Ea*3 Sig: INHALE 1 PUFF BY MOUTH EVERY MORNING Authorizing Provider: VIRGILIO LEAL Last Visit: 03/09/2024 (in office), 03/21/2021 [...] AM * Telephone Encounter - Becky Nagy [facility] - 08/10/2024 2:45 PM EDT Signed Prescriptions: Disp Refills Trelegy Ellipta 100-62.5-25 MCG/ACT Aeroso*180 Ea*3 Sig: INHALE 1 PUFF BY MOUTH EVERY MORNINGAuthorizing Provider: VIRGILIO LEAL * Telephone Encounter - Virgilio Leal MD - 08/10/2024 1:22 PM EDTSigned Prescriptions: Disp Refills Trelegy Ellipta 100-62.5-25 MCG/ACT Aeroso*180 Ea*3 Sig: INHALE 1 PUFF BY MOUTH EVERY MORNINGAuthorizing Provider: VIRGILIO LEAL * Telephone Encounter - Interface, [facility] - 08/10/2024 9:21 AM EDT Pending Prescriptions: Disp Refills Trelegy Ellipta 100-62.5-25 MCG/ACT Aeroso* 0 Sig: INHALE 1 PUFF BY MOUTH EVERY MORNING documented in this encounter Plan of Treatment Upcoming Encounters Date Type Department Care Team (Late st Contact Info) Description 10/05/2024 9:00 AM EST Nurse Only Ancillary Department, [place] [address] [place] [address] [place], Nurse [facility] [address] [facility] [address] 10/07/2024 9:00 AM EST Office [facility], [place] [address] [facility] [place] [phone] Virgilio Leal MD [address] [place] [facility] [place] [address] Scheduled Procedures Name Priority Associated Diagnoses Date/Ti [...] D LEVEL ONCE IN A LIFETIME-USE SMARTSET# [id number] Completed 08/24/2022, 08/23/2020, 12/23/2009 Albumin/Creatinine Ratio Discontinued [...] classified documented in this encounter Care Teams Assistant Grocery Store Manager Relationship Specialty Start Date End Date Virgilio Leal MD [address] [place] [address] PCP - General Family Medicine 05/08/18 documented as of this encounter
--- OUTSIDE RECORDS SUMMARY | 2024-09-03 11:59 | External Medical Summary | Summary of Care ---
Author Name Unknown Organization [facility] Address [address] [place] [address] Phone [phone] Care Team Providers Care Street Commissioner Name Role Phone Virgilio Gallegos MD Primary Care Provider +1- [phone] Reason for Visit * Reason Onset Date Comments FYI 03/11/2024 Encounter Details Date Type Department Care Team (Late st Contact Info) Description 03/11/2024 Telephone [facility] [address] [place] [address] Virgilio Gallegos MD [address] [place] [address] FYI Allergies No known active allergiesdocumented as of this encounter (statuses as of 06/10/2024) Medications Medication Sig Dispensed Refills Start Date End Date Status Vitamin D 25 MCG (1000 UT) Oral Tablet Take by mouth. Active Benzonatate 100 MG Oral Capsule (Tessean Perlbennie)Indications :Upper respiratory tract infection, unspecified type Take [...] per week. 2 mL 5 03/09/2024 Active documented as of this encounter (statuses as of 06/10/2024) Active Problems Problem Noted Date Diagnosed Date [...] as of this encounter (statuses as of 06/10/2024) Resolved Problems Problem Noted Date Diagnosed Date Resolved Date Chronic kidney disease, stage 3a 09/11/2021 09/10/2023 Overview: Per CKD protocol COPD, group A, by GOLD 2017 classification 09/14/2019 11/15/2022 Overview: Per COPD GOLD Classification COPD, moderate 12/23/2009 09/16/2019 Menopause 11/12/2008 05/08/2018 Overview: Late 30s documented as of this encounter (statuses as of 06/10/2024) Immunizations Name Administration Dates Next Due COVID-19 [...] Preserve, Inj 08/12/2017 TD, Preservative Free 03/01/2023 TDAP, Age [...] encounter Miscellaneous Notes * Telephone Encounter - Juno Albright OSA - 03/11/2024 10:56 AM EDT Pt is calling in to FYI that her insurance wont cover any expenses for weight loss documented in this encounter Plan of Treatment Upcoming Encounters Date Type Department Care Team (Late st Contact Info) Description 10/05/2024 9:00 AM EST Nurse Only Ancillary Department, [place] [address] [place] [address] [place] Nurse Annual [facility] [address] [place] [facility] [place] [address] 10/07/2024 9:00 AM EST Office Visit [facility], [place] [address] [facility] [place] [phone] Virgilio Gallegos MD [address] [facility] [place] [address] Scheduled Procedures Name Priority Associated Diagnoses Date/Ti me COLONOSCOPY FLEXIBLE PROXIMAL DIAGNOSTIC Recall History of colon polyps Health Maintenance Due Date Last Done Comments Alpha-1 Antitrypsin 1968 Cologuard 1995 Fecal Occult Blood Test 1995 Sigmoidoscopy 1995 *BISPHONATE OR OTHER ACCEPTABLE MEDICATION NEEDED FOR OSTEOPOROSIS (REFER TO SMARTSET #1146) 09/07/2015 DXA Scan 06/03/2021 06/03/2019, 01/2019, 09/14/2015, Additional history exists COVID-19 Vaccine ( season) 2023 07/18/2021, 06/20/2021 Mammogram 08/24/2023 08/24/2022, 08/03, 08/22/2021, Additional history exists Colonoscopy 02/03/2024 02/02/2022, 06/2019, 07/08/2019, Additional history exists Colorectal Cancer Screening 02/03/2024 Influenza Vaccine (FLU shot) (#1) 2024 09/10/2023, 09/11/2022, 09/01/2021, Additional history exists Depression Screening 09/12/2024 09/12/2023 HbA1c 03/04/2025 03/04/2024, 02/01, 08/24/2022, Additional history exists O2 ASSESSMENT COMPLETED IN PAST YEAR FOR COPD 03/09/2025 03/09/2024 Lipid Panel 03/04/2029 03/04/2024, 08/03, 11/28/2021, Additional history exists DTaP,Tdap,and Td Vaccines (3 - Td or Tdap) 03/01/2033 03/01/2023, 11/12/2008 Pneumococcal Vaccine: 65+ Years Completed 08/12/2017, 09/30/2015 RETIRED - COLONOSCOPY-EVERY 2 YRS AGES 18-100 Discontinued 02/02/2022, 07/08/2019, 07/08/2019, Additional history exists Zoster Vaccines Completed 05/25/2022, 02/15/2022 VITAMIN D LEVEL ONCE IN A LIFETIME-USE SMARTSET# [id number] Completed 08/24/2022, 08/23/2020, 12/23/2009 Albumin/Creatinine Ratio Discontinued [...] filedocumented as of this encounter Care Teams Street Commissioner Relationship Specialty Start Date End Date Virgilio Gallegos MD [address] [place] [address] PCP - General Family Medicine 05/08/18 documented as of this encounter
--- OUTSIDE RECORDS SUMMARY | 2024-09-03 11:59 | External Medical Summary | Summary of Care ---
Author Name Unknown Organization [facility] Address [address] [place] [address] Phone [phone] Care Team Providers Care Automatic Cigar Wrapper Tender Name Role Phone Virgilio Leal MD Primary Care Provider +1- [phone] Reason for Visit * Reason Onset Date Comments eRx-Medication Refill Status Check 08/08/2024 Encounter Details Date Type Department Care Team (Late st Contact Info) Description 08/08/2024 Refill [place] [address] [place] [address] Virgilio Leal MD [address] [place] [address] COPD, moderate (HCC) Allergies No [...] 2.5 MG/0.5ML Subcutaneous Solution Auto-injector (Isa t [facility])Indic ations:Prediabet es,Class 2 severe obesity with serious comorbidity and body mass index (BMI) of 36.0 to 36.9 in adult, unspecified obesity type (HCC) Inject 2.5 mg subcutaneously once per week. 2 mL 5 03/09/20 24 Active Trelegy Ellipta 100-62.5-25 MCG/ACT Aerosol Powder Breath Activated (Fluticasone-Ume clidinium-Vilant derrick)Indications :COPD, moderate (HCC) INHALE 1 PUFF BY MOUTH EVERY MORNING 180 Each 3 08/14/20 24 Active Trelegy Ellipta 100-62.5-25 MCG/ACT Aerosol Powder Breath Activated (Fluticasone-Ume clidinium-Vilant derrick)Indications :COPD, moderate (HCC) Inhale 1 Puff by mouth in the morning. 180 Each 3 09/10/20 23 024 Discontinued Trelegy Ellipta 100-62.5-25 MCG/ACT Aerosol Powder Breath Activated (Fluticasone-Ume clidinium-Vilant derrick)Indications :COPD, moderate (HCC) INHALE 1 PUFF BY MOUTH EVERY MORNING 180 Each 3 08/10/20 24 024 Discontinued(Re fill) documented as of [...] encounter Miscellaneous Notes * Telephone Encounter - Arielle Washburn CPhT - 08/14/2024 1:51 PM EDT Pt is calling regarding Trelegy Ellipta 100-62.5-25 MCG/ACT Aerosol Powder Breath Activated (Gverawpiaqh-Wgqlhqkzsinj-Nxzpqyscbw). Caller states her pharmacy is sending over a fax that has to be completed regarding the medication. Please advise. Thank you, Torri Washburn [facility] Contract Agent III [facility] [address] [place] [address], [address] [phone] * Telephone Encounter - Higinio Bustos [facility] - 08/14/2024 11:20 AM EDTSigned Prescriptions: Disp Refills Trelegy Ellipta 100-62.5-25 MCG/ACT Aeroso*180 Ea*3 Sig: INHALE 1 PUFF BY MOUTH EVERY MORNINGAuthorizing Provider: VIRGILIO LEAL User: HIGINIO BUSTOS * Addendum Note - Higinio Bustos [facility] - 08/14/2024 11:20 AM EDTAddended by: HIGINIO BUSTOS on: 08/14/2024 11:20 AM Modules accepted: Orders * Telephone Encounter - Higinio Bustos [facility] - 08/14/2024 11:20 AM EDT Resent to pharmacy as requested. Thank you, Higinio Bustos, PharmD Clinical Pharmacist [facility] 08/14/24 11:20 AM [phone] * Addendum Note - Higinio Bustos [facility] - 08/14/2024 11:18 AM EDTAddended by: HIGINIO BUSTOS on: 08/14/2024 11:18 AM Modules accepted: Orders * Telephone Encounter - Ofe Kahn CPhT - 08/14/2024 10:57 AM EDT Please resend Rx to [id number]. Confirmed [...] AM * Telephone Encounter - Becky Nagy [facility] - 08/10/2024 2:45 PM EDT Signed Prescriptions: Disp Refills Trelegy Ellipta 100-62.5-25 MCG/ACT Aeroso*180 Ea*3 Sig: INHALE 1 PUFF BY MOUTH EVERY MORNINGAuthorizing Provider: VIRGILIO LEAL * Telephone Encounter - Virgilio Lela MD - 08/10/2024 1:22 PM EDTSigned Prescriptions: Disp Refills Trelegy Ellipta 100-62.5-25 MCG/ACT Aeroso*180 Ea*3 Sig: INHALE1 PUFF BY MOUTH EVERY MORNINGAuthorizing Provider: VIRGILIO [...] 9:00 AM EST Nurse Only Ancillary Department, [place] [address] [place] [address] [place], Nurse Annual Wellness [address] [facility] [place] [id number] 10/07/2024 9:00 AM EST Office Visit Family Practice, [place] [address] [place] [phone] Virgilio Leal MD [address] [facility] [place] [id number] Scheduled Procedures Name Priority Associated Diagnoses Date/Ti [...] D LEVEL ONCE IN A LIFETIME-USE SMARTSET# [id number] Completed 08/24/2022, 08/23/2020, 12/23/2009 Albumin/Creatinine Ratio Discontinued [...] classified documented in this encounter Care Teams Automatic Cigar Wrapper Tender Relationship Specialty Start Date End Date Virgilio Leal MD [address] [place] [facility] [place] [address] PCP - General Family Medicine 05/08/18 documented as of this encounter
--- OUTSIDE RECORDS SUMMARY | 2024-09-03 11:59 | External Medical Summary | Summary of Care ---
Author Name Unknown Organization [facility] Address [address] [place] [address] Phone [phone] Care Team Providers Care Drafter Heating And Ventilating Name Role Phone Virgilio Leal MD Primary Care Provider +1- [phone] Reason for Visit * Reason Comments eRx-Medication Refill Encounter Details Date Type Department Care Team (Late st Contact Info) Description 08/08/2024 Refill [facility] [address] [place] [address] Virgilio Leal MD [address] [place] [address] COPD, moderate (HCC) Allergies No [...] encounter Miscellaneous Notes * Telephone Encounter - Ofe Kahn CPhT - 08/14/2024 10:57 AM EDT Please resend Rx to [id number]. Confirmed pharmacy [...] AM * Telephone Encounter - Becky Nagy RPh - 08/10/2024 2:45 PM EDT Signed Prescriptions: [...] 9:00 AM EST Nurse Only Ancillary Department, [place] [address] [facility] [phone] [place] Nurse Annual [facility] [address] [facility] [place] [address] 10/07/2024 9:00 AM EST Office Visit [facility], [place] [address] [place] [address] Virgilio Leal MD [address] [facility] [place] [address] Scheduled Procedures Name Priority Associated Diagnoses Date/Ti [...] D LEVEL ONCE IN A LIFETIME-USE SMARTSET# [id number] Completed 08/24/2022, 08/23/2020, 12/23/2009 Albumin/Creatinine Ratio Discontinued [...] classified documented in this encounter Care Teams Drafter Heating And Ventilating Relationship Specialty Start Date End Date Virgilio Leal MD [address] [place] [address] PCP - General Family Medicine 05/08/18 documented as of this encounter
--- OUTSIDE RECORDS SUMMARY | 2024-09-03 11:59 | External Medical Summary | Summary of Care ---
Author Name Unknown Organization [facility] Address [address] [place] [address] Phone [phone] Care Team Providers Care Instructor Flying Name Role Phone Virgilio Leal MD Primary Care Provider +1- [phone] Reason for Visit * Reason Comments eRx-Medication Refill Encounter Details Date Type Department Care Team (Late st Contact Info) Description 08/08/2024 Refill [facility] [address] [place] [address] Virgilio Leal MD [address] [place] [address] COPD, moderate (HCC) Allergies No [...] encounter Miscellaneous Notes * Telephone Encounter - Bustos, Higinio Maye, [facility] - 08/14/2024 11:20 AM EDTSigned Prescriptions: Disp Refills Trelegy Ellipta 100-62.5-25 MCG/ACT Aeroso*180 Ea*3 Sig: INHALE 1 PUFF BY MOUTH EVERY MORNINGAuthorizing Provider: VIRGILIO LEAL User: HIGINIO BUSTOS * Addendum Note - Higinio Bustos [facility] - 08/14/2024 11:20 AM EDTAddended by: HIGINIO BUSTOS on: 08/14/2024 11:20 AM Modules accepted: Orders * Telephone Encounter - Higinio Bustos [facility] - 08/14/2024 11:20 AM EDT Resent to pharmacy as requested. Thank you, Higinio Bustos, PharmD Clinical Pharmacist [facility] 08/14/24 11:20 AM [phone] * Addendum Note - Higinio Bustos [facility] - 08/14/2024 11:18 AM EDTAddended by: HIGINIO BUSTOS on: 08/14/2024 11:18 AM Modules accepted: Orders * Telephone Encounter - Ofe Kahn [facility] - 08/14/2024 10:57 AM EDT Please resend Rx to [id number]. Confirmed pharmacy [...] AM * Telephone Encounter - Becky Nagy [facility] - 08/10/2024 2:45 PM EDT Signed [...] 9:00 AM EST Nurse Only Ancillary Department, [address] [place] [id number] [place], Nurse Annual Wellness [address], [place] [phone] 10/07/2024 9:00 AM EST Office Visit [facility], [address] [place] [phone] Virgilio Leal MD [address] [place] [address] Scheduled Procedures Name Priority Associated Diagnoses Date/Ti [...] D LEVEL ONCE IN A LIFETIME-USE SMARTSET# [id number] Completed 08/24/2022, 08/23/2020, 12/23/2009 Albumin/Creatinine Ratio Discontinued [...] classified documented in this encounter Care Teams Instructor Flying Relationship Specialty Start Date End Date Virgilio Leal MD [address] [place] [address] PCP - General Family Medicine 05/08/18 documented as of this encounter
--- OUTSIDE RECORDS SUMMARY | 2024-09-03 11:59 | External Medical Summary | Summary of Care ---
Author Name Unknown Organization [facility] Address [address] [place] [address] Phone [phone] Care Team Providers Care Product Marketing Manager Name Role Phone Maria Gallegos MD Primary Care Provider +1- [phone] Reason for Visit * Reason Onset Date Comments Medication Refill 08/19/2024 Encounter Details Date Type Department Care Team (Late st Contact Info) Description 08/19/2024 Refill [place] [address] [place] [address] Maria Gallegos MD [address] [place] [address] COPD, moderate (HCC) Allergies No known active allergiesdocumented as of this encounter (statuses as of 08/19/2024) Medications Medication Sig Dispensed Refills Start Date [...] 03/01/2023 Atorvastatin Calcium 20 MG Oral Tablet (Lipitor)Indicati ons:Dyslipidemia Take 1 Tablet by mouth in the [...] 09/10/2023 Active predniSONE 10 MG Oral Tablet (Deltasone)Indica tions:COPD exacerbation (HCC) Take 5 tabs for 2 days, 4 tabs for 2 days, 3 tabs for 2 days, 2 tabs for 2 days 1 tab for 2 days 30 Tablet 11/15/2023 Active Additional Information Patient not taking.Reported on 03/09/2024 Doxycycline Hyclate 100 MG Oral CapsuleIndication s:COPD exacerbation (HCC) Take 1 Capsule by mouth in the morning and 1 Capsule before bedtime. Until gone.. 20 Capsule 11/15/2023 Active guaiFENesin-Codei ne 100-10 MG/5ML Oral SolutionIndicatio ns:COPD exacerbation (HCC) Take 5 mL by mouth 4 times a day as needed for Congestion or Cough. 60 mL 11/15/2023 Active Furosemide 20 MG Oral Tablet (Lasix)Indication s:Chronic diastolic heart failure (HCC) TAKE ONE TABLET BY MOUTH EVERY DAY NEEDED EDEMA 90 Tablet 2 02/12/2024 Active Zepbound 2.5 MG/0.5ML Subcutaneous Solution Auto-injector (Tirzepatide-Weig ht Management)Indica tions:Prediabetes ,Class 2 severe obesity with serious comorbidity and body mass index (BMI) of 36.0 to 36.9 in adult, unspecified obesity type (HCC) Inject 2.5 mg subcutaneously once per week. 2 mL 5 03/09/2024 Active Trelegy Ellipta 100-62.5-25 MCG/ACT Aerosol Powder Breath Activated (Fluticasone-Umec lidinium-Vilanter ol)Indications:CO PD, moderate (HCC) INHALE 1 PUFF BY MOUTH EVERY MORNING 180 Each 3 08/19/2024 Active Trelegy Ellipta 100-62.5-25 MCG/ACT Aerosol Powder Breath Activated (Fluticasone-Umec lidinium-Vilanter ol)Indications:CO PD, moderate (HCC) INHALE 1 PUFF BY MOUTH EVERY MORNING 180 Each 3 08/14/2024 08/19/20 24 Discontinu ed(Refill) documented as of this encounter (statuses as of 08/19/2024) Active Problems Problem Noted Date Diagnosed Date [...] as of this encounter (statuses as of 08/19/2024) Resolved Problems Problem Noted Date Diagnosed Date Resolved Date Chronic kidney disease, stage 3a 09/11/2021 09/10/2023 Overview: Per CKD protocol COPD, group A, by GOLD 2017 classification 09/14/2019 11/15/2022 Overview: Per COPD GOLD Classification COPD, moderate 12/23/2009 09/16/2019 Menopause 11/12/2008 05/08/2018 Overview: Late 30s documented as of this encounter (statuses as of 08/19/2024) Immunizations Name Administration Dates Next Due COVID-19 [...] encounter Miscellaneous Notes * Telephone Encounter - Maria Gallegos MD - 08/19/2024 3:32 PM EDTSigned Prescriptions: Disp Refills Trelegy Ellipta 100-62.5-25 MCG/ACT Aeroso*180 Ea*3 Sig: INHALE 1 PUFF BY MOUTH EVERY MORNINGAuthorizing Provider: MARIA GALLEGOS documented in this encounter Plan of Treatment Upcoming Encounters Date Type Department Care Team (Late st Contact Info) Description 10/05/2024 9:00 AM EST Nurse Only Ancillary Department, [place] [address] [facility] [place] [phone] [place], Nurse Annual Wellness [address] [facility] [place] [address] 10/07/2024 9:00 AM EST Office Visit Family [facility], [place] [address] [place] [facility] [place] [phone] Maria Gallegos MD [address] [place] [facility] [place] [address] Scheduled Procedures Name Priority Associated Diagnoses Date/Ti [...] D LEVEL ONCE IN A LIFETIME-USE SMARTSET# [id number] Completed 08/24/2022, 08/23/2020, 12/23/2009 Albumin/Creatinine Ratio Discontinued [...] classified documented in this encounter Care Teams Product Marketing Manager Relationship Specialty Start Date End Date Maria Gallegos MD [address] [place], [place] [phone] PCP - General Family Medicine 05/08/18 documented as of this encounter
--- OUTSIDE RECORDS SUMMARY | 2024-09-03 11:59 | External Medical Summary | Summary of Care ---
Author Name Unknown Organization [facility] Address [address] [place] [address] Phone [phone] Care Team Providers Care Autos Disassembler Name Role Phone Virgilio Gallegos MD Primary Care Provider +1- [phone] Reason for Visit * Reason Onset Date Comments Encounter Created in Error 08/10/2024 Encounter Details Date Type Department Care Team (Late st Contact Info) Description 08/10/2024 Telephone [facility] [address] [place] [address] Virgilio Gallegos MD [address] [place] [address] Encounter Created in Error Allergies No known active allergiesdocumented as of this encounter (statuses as of 08/10/2024) Medications Medication Sig Dispensed Refills Start Date End Date Status Vitamin D 25 MCG (1000 UT) Oral Tablet Take by mouth. Active Benzonatate 100 MG Oral Capsule (Tessalpenny Perles)Indicatio ns:Upper respiratory tract infection, unspecified type [...] Active Zepbound 2.5 MG/0.5ML Subcutaneous Solution Auto-injector (Tirzepatide-Evgeny ght Management)Indic ations:Prediabet es,Class 2 severe obesity with [...] as of this encounter (statuses as of 08/10/2024) Active Problems Problem Noted Date Diagnosed Date [...] as of this encounter (statuses as of 08/10/2024) Resolved Problems Problem Noted Date Diagnosed Date Resolved Date Chronic kidney disease, stage 3a 09/11/2021 09/10/2023 Overview: Per CKD protocol COPD, group A, by GOLD 2017 classification 09/14/2019 11/15/2022 Overview: Per COPD GOLD Classification COPD, moderate 12/23/2009 09/16/2019 Menopause 11/12/2008 05/08/2018 Overview: Late 30s documented as of this encounter (statuses as of 08/10/2024) Immunizations Name Administration Dates Next Due COVID-19 [...] encounter Miscellaneous Notes * Telephone Encounter - Patsy Villanueva LPN - 08/10/2024 1:07 PM EDT Created in error documented in this encounter Plan of Treatment Upcoming Encounters Date Type Department Care Team (Late st Contact Info) Description 10/05/2024 9:00 AM EST Nurse Only Ancillary Department, [address] [place] [address] [place], Nurse [facility] [address] [facility] [place] [address] 10/07/2024 9:00 AM EST Office Visit Family [facility], [place] [address] [place] [phone] Virgilio Gallegos MD [address] [place] [facility] [place] [address] Scheduled Procedures Name Priority Associated Diagnoses Date/Ti [...] D LEVEL ONCE IN A LIFETIME-USE SMARTSET# [id number] Completed 08/24/2022, 08/23/2020, 12/23/2009 Albumin/Creatinine Ratio Discontinued [...] filedocumented as of this encounter Care Teams Autos Disassembler Relationship Specialty Start Date End Date Virgilio Gallegos MD [address] [place] [address] PCP - General Family Medicine 05/08/18 documented as of this encounter
--- OUTSIDE RECORDS SUMMARY | 2024-09-03 11:59 | External Medical Summary | Summary of Care ---
Author Name Unknown Organization [facility] Address [address] [place] [address] Phone [phone] Care Team Providers Care Design Printing Machine Set Up Operator Name Role Phone Virgilio Leal MD Primary Care Provider +1- [phone] Reason for Visit * Reason Onset Date Comments eRx-Medication Refill Status Check 08/08/2024 Encounter Details Date Type Department Care Team (Late st Contact Info) Description 08/08/2024 Refill [place] [address] [place] [address] Virgilio Leal MD [address] [place] [address] COPD, moderate (HCC) Allergies No [...] 2.5 MG/0.5ML Subcutaneous Solution Auto-injector (Isa t [facility])Indic ations:Prediabet es,Class 2 severe obesity with serious [...] encounter Miscellaneous Notes * Telephone Encounter - India Garcia CPhT - 08/19/2024 10:05 AM EDT Pt calling in to check status of form for her trelegy. Please advise. Thank you, India Garcia CPhT Record Changer Tester III [facility] ([facility]) 08/19/2024, 10:05 AM * Telephone Encounter - Arielle Washburn CPhT - 08/14/2024 1:51 PM EDT Pt is calling regarding Trelegy Ellipta 100-62.5-25 MCG/ACT Aerosol Powder Breath Activated (Vooxfletqor-Ybgrdfnhdhiz-Kgavtvdpwv). Caller states her pharmacy is sending over a fax that has to be completed regarding the medication. Please advise. Thank you, Torri Washburn CPhT Acid Tank Liner III [facility] ([facility]) [address] [place] [address], [facility] [address] 38-74 * Telephone Encounter - Higinio Bustos [facility] - 08/14/2024 11:20 AM EDTSigned Prescriptions: Disp Refills Trelegy Ellipta 100-62.5-25 MCG/ACT Aeroso*180 Ea*3 Sig: INHALE1 PUFF BY MOUTH EVERY MORNINGAuthorizing Provider: VIRGILIO LEAL User: HIGINIO BUSTOS Electronically signed by Higinio Bustos [facility] at 08/14/2024 11:20 AM EDT * Addendum Note - Higinio Bustos [facility] - 08/14/2024 11:20 AM EDTAddended by: HIGINIO BUSTOS on: 08/14/2024 11:20 AM Modules accepted: Orders Electronically signed by Higinio Bustos [facility] at 08/14/2024 11:20 AM EDT * Telephone Encounter - Higinio Bustos [facility] - 08/14/2024 11:20 AM EDT Resent to pharmacy as requested. Thank you, Higinio Bustos, PharmD Clinical Pharmacist [facility]) 08/14/24 11:20 AM [phone] Electronically signed by Higinio Bustos [facility] at 08/14/2024 11:20 AM EDT * Addendum Note - Higinio Bustos [facility] - 08/14/2024 11:18 AM EDTAddended by: HIGINIO BUSTOS on: 08/14/2024 11:18 AM Modules accepted: Orders Electronically signed by Higinio Bustos [facility] at 08/14/2024 11:18 AM EDT * Telephone Encounter - Ofe Kahn [facility] - 08/14/2024 10:57 AM EDT Please resend Rx to [id number]. Confirmed [...] AM * Telephone Encounter - Becky Nagy [facility] - 08/10/2024 2:45 PM EDT Signed Prescriptions: [...] 9:21 AM EDT Pending Prescriptions: Disp Refills La Chopra 100-62.5-25 MCG/ACT Aeroso* 0 Sig: INHALE 1 PUFF BY MOUTH EVERY MORNING documented in this encounter Plan of Treatment Upcoming Encounters Date Type Department Care Team (Late st Contact Info) Description 10/05/2024 9:00 AM EST Nurse Only Ancillary Department, [place] [address] [place] [facility] [place] [address] [place] Nurse [facility] [address] [facility] [place] [address] 10/07/2024 9:00 AM EST Office Visit [facility], [place] [address] [place] [facility] [place] [phone] Virgilio Leal MD [address] [facility] [place] [id number] Scheduled Procedures Name Priority Associated Diagnoses Date/Ti [...] D LEVEL ONCE IN A LIFETIME-USE SMARTSET# [id number] Completed 08/24/2022, 08/23/2020, 12/23/2009 Albumin/Creatinine Ratio Discontinued [...] classified documented in this encounter Care Teams Design Printing Machine Set Up Operator Relationship Specialty Start Date End Date Virgilio Leal MD [address] [place] [address] PCP - General Family Medicine 05/08/18 documented as of this encounter
--- OUTSIDE RECORDS SUMMARY | 2024-09-03 11:59 | External Medical Summary | Summary of Care ---
Author Name Unknown Organization [facility] Address [address] [place] [address] Phone [phone] Care Team Providers Care Manager Convention Name Role Phone Virgilio Gallegos MD Primary Care Provider +1- [phone] Reason for Visit * Reason Comments eRx-Medication Refill Encounter Details Date Type Department Care Team (Late st Contact Info) Description 08/08/2024 Refill [facility] [address] [place] [address] Virgilio Gallegos MD [address] [place] [address] COPD, moderate (HCC) Allergies No [...] Telephone Encounter - Virgilio Gallegos MD - 08/10/2024 1:22 PM EDTSigned Prescriptions: Disp Refills Trelegy Ellipta 100-62.5-25 MCG/ACT Aeroso*180 Ea*3 Sig: INHALE 1 PUFF BY MOUTH EVERY MORNINGAuthorizing Provider: VIRGILIO GALLEGOS * Telephone Encounter - Interface, [facility] - 08/10/2024 9:21 AM EDT Pending Prescriptions: Disp Refills La Ellipta 100-62.5-25 MCG/ACT Aeroso* 0 Sig: INHALE 1 PUFF BY MOUTH EVERY MORNING documented in this encounter Plan of Treatment Upcoming Encounters Date Type Department Care Team (Late st Contact Info) Description 10/05/2024 9:00 AM EST Nurse Only Ancillary Department, [place] [address] [facility] [place] [id number] [place], Nurse [facility] [address] [place] [facility] [place] [address] 10/07/2024 9:00 AM EST Office Visit [facility] [address] [place] [facility] [place] [phone] Virgilio Gallegos MD [address] [place] [facility] [place] [address] Scheduled Procedures Name Priority Associated Diagnoses [...] D LEVEL ONCE IN A LIFETIME-USE SMARTSET# [id number] Completed 08/24/2022, 08/23/2020, 12/23/2009 Albumin/Creatinine Ratio Discontinued [...] classified documented in this encounter Care Teams Manager Convention Relationship Specialty Start Date End Date Virgilio Gallegos MD [address] [place] [address] PCP - General Family Medicine 05/08/18 documented as of this encounter
[2024-09-03] MEDS ORDERED: methylPREDNISolone 1000 MG/16 ML IV SCH (14:00)
[2024-09-03] MEDS: cefTRIAXone SODIUM 2,000 MG/50 ML BAG IV SCH (15:04)
[2024-09-03] MEDS: methylPREDNISolone 40 MG in SYRINGE 0 ML IV SCH (15:05)
[2024-09-03] MEDS: AZITHROMYCIN 500 MG in DEXTROSE 5% 250 ML IV SCH (15:05)
[2024-09-03] MEDS: LEVALBUTEROL 1.25 MG/3 ML NEB NEB SCH (15:32)
--- NOTE | 2024-09-03 16:31 | Electrocardiogram Report ---
Test Reason : Blood Pressure : */* mmHG Vent. Rate : 93 BPM Atrial Rate : 93 BPM P-R Int : 142 ms QRS Dur : 110 ms QT Int : 364 ms P-R-T Axes : 66 45 44 degrees QTcB Int : 452 ms Normal sinus rhythm Incomplete right bundle branch block Nonspecific ST and T wave abnormality Abnormal ECG When compared with ECG of 04-Nov-2023 08:31, Incomplete right bundle branch block is now Present Confirmed by Simeon Bullock ([id number]) on 09/03/2024 4:31:13 PM Referred By: Confirmed By: Simeon Bullock
[2024-09-03] MEDS: ENOXAPARIN INJ 40 MG/0.4 ML SYR SQ SCH (20:08)
[2024-09-04] MEDS: ACETAMINOPHEN 325 MG TAB PO PRN (03:04)
[2024-09-04 06:21] LABS: Hematocrit (blood only) 37.3 % (37.0-47.0); Mean Corpuscular Hemoglobin 31.6 pg (25.0-34.0); Mean Corpuscular Hgb Conc 34.9 g/dL (32.0-36.0); Mean Corpuscular Volume 90.5 fL (80.0-100.0); Mean Platelet Volume 11.2 fL (9.4-12.4); Platelet Count 238 K/uL (130-400); RDW Coefficient of Variation 13.1 % (11.5-14.5); RDW Standard Deviation 43.4 fL (36.4-46.3); Red Blood Count 4.12 M/uL (4.20-5.40); White Blood Count 14.12 K/ul (4.8-10.8)
[2024-09-04 06:35] LABS: Albumin Globulin Ratio 1.5 (0.9-2); Albumin Level 3.6 gm/dl (3.4-5.0); BUN Creatinine Ratio 23.5 (10-20); Bilirubin,Total 0.9 mg/dl (0.2-1.0); Calcium 9.1 mg/dl (8.6-10.3); Creatinine Clr Calc Pharmacy 62.7 ml/min; Globulin 2.4 gm/dl (2.5-4.0); Potassium 4.3 mmol/L (3.5-5.1)
[2024-09-04 06:51] LABS: Basophils # (auto) 0.01 K/uL (0.00-0.20); Basophils % (auto) 0.1 %; Eosinophils # (auto) 0.01 K/uL (0.00-0.50); Eosinophils % (auto) 0.1 %; Immature Granulocytes % (auto) 0.7 %; Lymphocytes # (auto) 0.39 K/uL (1.20-3.40); Lymphocytes % (auto) 2.8 %; Monocytes # (auto) 0.57 K/uL (0.11-0.59); Neutrophils # (auto) 13.04 K/uL (1.40-6.50); Neutrophils % (auto) 92.3 %
[2024-09-04] MEDS: UMECLIDINIUM/VILANTEROL 62.5/25MCG 7 PUFFS/INHALER INH SCH (07:51)
[2024-09-04] MEDS: CHOLECALCIFEROL 25 MCG (1000 UNITS) TAB PO SCH (07:51)
[2024-09-04] MEDS: ATORVASTATIN 20 MG TAB PO SCH (07:51)
[2024-09-04] MEDS: FUROSEMIDE 20 MG TAB PO SCH (07:51)
[2024-09-04] MEDS: FLUTICASONE FUROATE 100MCG 14 PUFFS/INHALER INH SCH (07:51)
[2024-09-04] MEDS: POTASSIUM CHLORIDE CRTAB 20 MEQ TABCR PO SCH (08:10)
[2024-09-04] MEDS ORDERED: NON-FORMULARY MEDICATION (Fluticasone-Umeclidin-Vilanter [Trelegy Ellipta] 100-62.5-25 mcg INH SCH (09:00)
--- NOTE | 2024-09-04 13:45 | Hospitalist Progress Note ---
Date of Service September 04, 2024 Assessment & Plan (1) Acute and chronic respiratory failure with hypoxia: (2) Pneumonia: (3) Acute exacerbation of chronic obstructive pulmonary disease: (4) Chronic diastolic heart failure: (5) COPD (chronic obstructive pulmonary disease): Plan Assessment and plan: Acute on chronic respiratory failure: Possible bronchitis vs pna: Hx COPD: On 3 L chronically at home, follows with pulmonology outpatient Currently on 4 L, shortness of breath improved with nebulizers/steroids Continue IV Solu-Medrol every 8 hours, continue levalbuterol 4 times daily Wean oxygen as able, give azithromycin x 3 days, continue ceftriaxone Respiratory panel neg. -Clinically better with improvement of respiratory symptoms Will continue current management Hx HLD/diastolic CHF: Continue statin, Lasix Patient should establish outpatient follow-up with cardiology -Denies any increasing shortness of breath or fluid overload Hx vitamin D deficiency: Continue vitamin D Patient is a DNR/DNI DVT prophylaxis: Lovenox Admission and Anticipated Discharge Date Admission Date: September 03, 2024 Subjective 09/04/2024 The patient was seen and examined in medical telemetry unit She has been feeling much better Her respiratory symptoms have improved Review of Systems Review of Systems: All systems reviewed and are unremarkable except as noted below Physical Exam Physical Exam: Sitting on a chair without any acute distress Constitutional: well developed, well nourished, + ill appearing and + obese Eyes: PERRL, conjunctivae normal, anicteric sclerae ENMT: external ear and nose normal, oropharynx normal Neck: trachea midline, no thyromegaly Respiratory: + respiratory distress (Minimal distress at rest) Auscultation: + diminished lung sounds, + crackles (Crackles at the bases) and + wheezes Gastrointestinal (Abdomen): Inspection/Auscultation: normal bowel sounds; abdomen not distended Percussion/Palpation: abdomen soft; abdomen nontender Musculoskeletal: No acute arthritis involving any of the joint Neurologic: normal touch/pain/proprioception and moves all extremities; no focal motor deficits Lymphatic: no cervical or axillary lymphadenopathy Results & Data Results & Data Vital Signs (Past 12 Hours) Vital Signs Temp Pulse Pulse Pulse Resp BP Pulse Ox 09/04/24 11:27 65 16 95 09/04/24 11:19 36.7 C 77 18 122/71 98 09/04/24 07:20 36.3 C L 72 18 121/61 94 10/04/24 07:17 52 L 09/04/24 07:11 76 18 94 09/04/24 03:43 36.9 C 75 18 116/63 94 O2 Del Method O2 Flow Rate 09/04/24 11:27 Nasal Cannula 4 09/04/24 11:19 Nasal Cannula 4 09/04/24 07:20 Nasal Cannula 5 09/04/24 07:17 09/04/24 07:11 Nasal Cannula 5 09/04/24 03:43 Nasal Cannula 5 Laboratory Results Short CBC 09/04/24 Range/Units 05:27 WBC 14.12 H (4.8-10.8) K/ul Hgb 13.0 (12.0-16.0) g/dl Hct 37.3 (37.0-47.0) % Plt Count 238 (130-400) K/uL BMP 09/04/24 05:27 Sodium 134 L Potassium 4.3 Chloride 101 Carbon Dioxide 25 BUN 23 Creatinine 0.98 Glucose 174 H Calcium 9.1 Liver Function 09/04/24 Range/Units 05:27 Total Bilirubin 0.9 D (0.2-1.0) mg/dl AST 17 (13-39) U/L ALT 32 (7-52) U/L Alkaline Phosphatase 62 (34-104) U/L Albumin 3.6 (3.4-5.0) gm/dl Medications Administered Current Inpatient Medications Acetaminophen (Acetaminophen 325 Mg Tab) 650 mg PO Q4H PRN PRN Reason: pain/fever Stop: 10/03/24 13:32 Last Admin: 09/04/24 03:04 Dose: 650 mg Atorvastatin Calcium (Atorvastatin 20 Mg Tab) 20 mg PO QAM JANUSZ Stop: 10/04/24 08:59 Last Admin: 09/04/24 07:51 Dose: 20 mg Enoxaparin Sodium (Enoxaparin Inj 40 Mg/0.4 Ml Syr) 40 mg SQ QPM JANUSZ Stop: 10/03/24 20:59 Last Admin: 09/03/24 20:08 Dose: 40 mg Fluticasone Furoate (Fluticasone Furoate 100mcg 14 Puffs/Inhaler) 1 puffs INH DAILY JANUSZ Stop: 10/04/24 08:59 Last Admin: 09/04/24 07:51 Dose: 1 puffs Furosemide (Furosemide 20 Mg Tab) 20 mg PO QAM JANUSZ Stop: 10/04/24 08:59 Last Admin: 09/04/24 07:51 Dose: 20 mg Ceftriaxone Sodium (Rocephin) 2,000 mg in 50 mls @ 100 mls/hr IV Q24H JANUSZ Stop: 09/10/24 13:59 Last Infusion: 09/03/24 16:29 Dose: Infused Azithromycin 500 mg/ Dextrose 255 mls @ 125 mls/hr IV Q24H JANUSZ Stop: 09/06/24 14:59 Last Infusion: 09/03/24 16:50 Dose: Infused Methylprednisolone 40 mg/ (Syringe) 0.64 mls @ 1.5 mls/min IV Q8H JANUSZ Stop: 10/03/24 13:59 Last Admin: 09/04/24 05:59 Dose: 1.5 mls/min Levalbuterol HCl (Levalbuterol 1.25 Mg/3 Ml Neb) 1.25 mg NEB QIDR JANUSZ Stop: 10/03/24 13:59 Last Admin: 09/04/24 11:26 Dose: 1.25 mg Potassium Chloride (Potassium Chloride Crtab 20 Meq Tabcr) 20 meq PO QAM JANUSZ Stop: 10/04/24 08:59 Last Admin: 09/04/24 08:10 Dose: 20 meq Umeclidinium/Vilanterol (Umeclidinium/Vilanterol 62.5/25mcg 7 Puffs/Inhaler) 1 puffs INH DAILY JANUSZ Stop: 10/04/24 08:59 Last Admin: 09/04/24 07:51 Dose: 1 puffs Vitamin D (Cholecalciferol 25 Mcg (1000 Units) Tab) 25 mcg PO QAM JANUSZ Stop: 10/04/24 08:59 Last Admin: 09/04/24 07:51 Dose: 25 mcg (5) COPD (chronic obstructive pulmonary disease) COPD type: unspecified COPD Qualified Code(s): J44.9 - Chronic obstructive pulmonary disease, unspecified
[2024-09-04] MEDS: COUGH DROP (SUGAR FREE) LOZ 24 LOZ/1 BOX BUCCAL STA (15:19)
[2024-09-04] MEDS: BENZONATATE 100 MG CAPSULE PO PRN (23:03)
[2024-09-05 07:18] LABS: BUN Creatinine Ratio 27.8 (10-20); Calcium 9.5 mg/dl (8.6-10.3); Creatinine Clr Calc Pharmacy 63.3 ml/min; Magnesium 2.3 mg/dl (1.7-2.4); Phosphorus 3.8 mg/dl (2.5-4.9); Potassium 4.7 mmol/L (3.5-5.1)
--- NOTE | 2024-09-05 13:54 | Hospitalist Progress Note ---
Date of Service September 05, 2024 Assessment & Plan (1) Acute and chronic respiratory failure with hypoxia: (2) Pneumonia: (3) Acute exacerbation of chronic obstructive pulmonary disease: (4) Chronic diastolic heart failure: (5) COPD (chronic obstructive pulmonary disease): Plan Assessment and plan: Acute on chronic respiratory failure: Possible bibasilar pneumonitis/pneumonia Hx COPD with exacerbation On 3 L chronically at home, follows with pulmonology outpatient Currently on 4 L, shortness of breath improved with nebulizers/steroids Continue IV Solu-Medrol every 8 hours, continue levalbuterol 4 times daily Wean oxygen as able, give azithromycin x 3 days, continue ceftriaxone Respiratory panel neg. -Clinically better with improvement of respiratory symptoms Will continue current management Clinically much better and will continue current management She was advised to walk around the hallway with assistance if needed Has been back to her baseline and requiring 3 L to maintain saturation Likely discharge tomorrow Hx HLD/diastolic CHF: Continue statin, Lasix Patient should establish outpatient follow-up with cardiology -Denies any increasing shortness of breath or fluid overload Hx vitamin D deficiency: Continue vitamin D Patient is a DNR/DNI DVT prophylaxis: Lovenox Admission and Anticipated Discharge Date Admission Date: September 03, 2024 Subjective 09/04/2024 The patient was seen and examined in medical telemetry unit She has been feeling much better Her respiratory symptoms have improved 09/05/2024 The patient was seen and examined in medical telemetry unit in presence of the She has been feeling much better and has minimal cough and no shortness of breath at rest No wheezing and has been ambulating in the room without any difficulties Review of Systems Review of Systems: All systems reviewed and are unremarkable except as noted below Physical Exam Physical Exam: Sitting on a chair without any acute distress Constitutional: well developed, well nourished, + ill appearing and + obese Eyes: PERRL, conjunctivae normal, anicteric sclerae ENMT: external ear and nose normal, oropharynx normal Neck: trachea midline, no thyromegaly Respiratory: + respiratory distress (Minimal distress at rest) Auscultation: + diminished lung sounds, + crackles (Crackles at the bases) and + wheezes Cardiovascular: Rate/Rhythm: regular rate and regular rhythm; not tachycardic Heart Sounds: normal S1 and normal S2; no murmur Extremities: no edema Gastrointestinal (Abdomen): Inspection/Auscultation: normal bowel sounds; abdomen not distended Percussion/Palpation: abdomen soft; abdomen nontender Neurologic: normal touch/pain/proprioception and moves all extremities; no focal motor deficits Lymphatic: no cervical or axillary lymphadenopathy Results & Data Results & Data Vital Signs (Past 12 Hours) Vital Signs Temp Pulse Pulse Resp BP Pulse Ox O2 Del Method 09/05/24 11:36 36.7 C 89 18 149/75 H 92 Nasal Cannula 09/05/24 10:39 75 18 92 Nasal Cannula 09/05/24 08:00 Nasal Cannula 09/05/24 07:42 36.6 C 73 18 130/70 97 Nasal Cannula 09/05/24 07:23 82 09/05/24 07:02 77 17 91 Nasal Cannula 09/05/24 02:22 36.5 C 75 18 129/78 91 Nasal Cannula O2 Flow Rate 09/05/24 11:36 3 09/05/24 10:39 3 09/05/24 08:00 3 09/05/24 07:42 3 09/05/24 07:23 09/05/24 07:02 3 09/05/24 02:22 3 Laboratory Results [facility] 09/05/24 05:55 Sodium 138 Potassium 4.7 Chloride 105 Carbon Dioxide 27 BUN 27 H Creatinine 0.97 Glucose 147 H Calcium 9.5 Medications Administered Current Inpatient Medications Acetaminophen (Acetaminophen 325 Mg Tab) 650 mg PO Q4H PRN PRN Reason: pain/fever Stop: 10/03/24 13:32 Last Admin: 09/04/24 03:04 Dose: 650 mg Atorvastatin Calcium (Atorvastatin 20 Mg Tab) 20 mg PO QAM [facility] Stop: 10/04/24 08:59 Last Admin: 09/05/24 09:10 Dose: 20 mg Benzonatate (Benzonatate 100 Mg Capsule) 100 mg PO TID PRN PRN Reason: Cough Stop: 10/04/24 22:37 Last Admin: 09/04/24 23:03 Dose: 100 mg Enoxaparin Sodium (Enoxaparin Inj 40 Mg/0.4 Ml Syr) 40 mg SQ QPM [facility] Stop: 10/03/24 20:59 Last Admin: 09/04/24 22:02 Dose: 40 mg Fluticasone Furoate (Fluticasone Furoate 100mcg 14 Puffs/Inhaler) 1 puffs INH DAILY [facility] Stop: 10/04/24 08:59 Last Admin: 09/05/24 09:09 Dose: 1 puffs Furosemide (Furosemide 20 Mg Tab) 20 mg PO QAM JANUSZ Stop: 10/04/24 08:59 Last Admin: 09/05/24 09:10 Dose: 20 mg Ceftriaxone Sodium (Rocephin) 2,000 mg in 50 mls @ 100 mls/hr IV Q24H JANUSZ Stop: 09/10/24 13:59 Last Infusion: 09/04/24 16:31 Dose: Infused Azithromycin 500 mg/ Dextrose 255 mls @ 125 mls/hr IV Q24H JANUSZ Stop: 09/06/24 14:59 Last Infusion: 09/04/24 17:48 Dose: Infused Methylprednisolone 40 mg/ (Syringe) 0.64 mls @ 1.5 mls/min IV Q8H JANUSZ Stop: 10/03/24 13:59 Last Admin: 09/05/24 06:37 Dose: 1.5 mls/min Levalbuterol HCl (Levalbuterol 1.25 Mg/3 Ml Neb) 1.25 mg NEB QIDR [facility] Stop: 10/03/24 13:59 Last Admin: 09/05/24 10:38 Dose: 1.25 mg Potassium Chloride (Potassium Chloride Crtab 20 Meq Tabcr) 20 meq PO QAM JANUSZ Stop: 10/04/24 08:59 Last Admin: 09/05/24 09:12 Dose: 20 meq Umeclidinium/Vilanterol (Umeclidinium/Vilanterol 62.5/25mcg 7 Puffs/Inhaler) 1 puffs INH DAILY JANUSZ Stop: 10/04/24 08:59 Last Admin: 09/05/24 09:09 Dose: 1 puffs Vitamin D (Cholecalciferol 25 Mcg (1000 Units) Tab) 25 mcg PO QAM JANUSZ Stop: 10/04/24 08:59 Last Admin: 09/05/24 09:10 Dose: 25 mcg (5) COPD (chronic obstructive pulmonary disease) COPD type: unspecified COPD Qualified Code(s): J44.9 - Chronic obstructive pulmonary disease, unspecified
--- NOTE | 2024-09-06 12:59 | Hospitalist Progress Note ---
Date of Service September 06, 2024 Assessment & Plan (1) Acute and chronic respiratory failure with hypoxia: (2) Pneumonia: (3) Acute exacerbation of chronic obstructive pulmonary disease: (4) Chronic diastolic heart failure: (5) COPD (chronic obstructive pulmonary disease): Plan Assessment and plan: Acute on chronic respiratory failure: Possible bibasilar pneumonitis/pneumonia Hx COPD with exacerbation On 3 L chronically at home, follows with pulmonology outpatient Currently on 4 L, shortness of breath improved with nebulizers/steroids Continue IV Solu-Medrol every 8 hours, continue levalbuterol 4 times daily Wean oxygen as able, give azithromycin x 3 days, continue ceftriaxone Respiratory panel neg. -Clinically better with improvement of respiratory symptoms Will continue current management Clinically much better and will continue current management She was advised to walk around the hallway with assistance if needed Has been back to her baseline and requiring 3 L to maintain saturation Much better clinically and seems to be at his baseline with the requirement of oxygen Will need to have PT and OT evaluation prior to discharge tomorrow Will need oral cefdinir for 5 more days and prednisone taper for the next 5 days Hx HLD/diastolic CHF: Continue statin, Lasix Patient should establish outpatient follow-up with cardiology -Denies any increasing shortness of breath or fluid overload - continue with current dose of Lasix Hx vitamin D deficiency: Continue vitamin D Patient is a DNR/DNI DVT prophylaxis: Lovenox Admission and Anticipated Discharge Date Admission Date: September 03, 2024 Subjective 09/04/2024 The patient was seen and examined in medical telemetry unit She has been feeling much better Her respiratory symptoms have improved 09/05/2024 The patient was seen and examined in medical telemetry unit in presence of the She has been feeling much better and has minimal cough and no shortness of breath at rest No wheezing and has been ambulating in the room without any difficulties 09/06/2024 The patient was seen and examined in medical telemetry unit She has been feeling much better with minimal wheezing and shortness of breath with exertion Has been requiring 3 L to maintain saturation which is at her baseline Does not have any fever and no chills Will get PT and OT evaluation prior to discharge tomorrow Review of Systems Review of Systems: All systems reviewed and are unremarkable except as noted below Physical Exam Physical Exam: Sitting on a chair without any acute distress Constitutional: well developed, well nourished, + ill appearing and + obese Eyes: PERRL, conjunctivae normal, anicteric sclerae ENMT: external ear and nose normal, oropharynx normal Neck: trachea midline, no thyromegaly Respiratory: + respiratory distress (Minimal distress at rest) Auscultation: + diminished lung sounds, + crackles (Crackles at the bases) and + wheezes Cardiovascular: Rate/Rhythm: regular rate and regular rhythm; not tachycardic Heart Sounds: normal S1 and normal S2; no murmur Extremities: no edema Gastrointestinal (Abdomen): Inspection/Auscultation: normal bowel sounds; abdomen not distended Percussion/Palpation: abdomen soft; abdomen nontender Neurologic: normal touch/pain/proprioception and moves all extremities; no focal motor deficits Lymphatic: no cervical or axillary lymphadenopathy Results & Data Results & Data Vital Signs (Past 12 Hours) Vital Signs Temp Pulse Pulse Resp BP Pulse Ox O2 Del Method 09/06/24 10:55 36.8 C 75 18 143/71 H 90 Nasal Cannula 09/06/24 10:17 79 18 94 Nasal Cannula 09/06/24 08:00 63 09/06/24 07:41 36.8 C 82 18 137/67 93 Nasal Cannula 09/06/24 07:37 Nasal Cannula 09/06/24 07:01 77 18 94 Nasal Cannula 09/06/24 02:21 36.4 C L 62 18 137/80 94 Nasal Cannula O2 Flow Rate 09/06/24 10:55 3 09/06/24 10:17 3 09/06/24 08:00 09/06/24 07:41 3 09/06/24 07:37 3 09/06/24 07:01 3 09/06/24 02:21 3 Medications Administered Current Inpatient Medications Acetaminophen (Acetaminophen 325 Mg Tab) 650 mg PO Q4H PRN PRN Reason: pain/fever Stop: 10/03/24 13:32 Last Admin: 09/04/24 03:04 Dose: 650 mg Atorvastatin Calcium (Atorvastatin 20 Mg Tab) 20 mg PO QAM [facility] Stop: 10/04/24 08:59 Last Admin: 09/06/24 07:29 Dose: 20 mg Benzonatate (Benzonatate 100 Mg Capsule) 100 mg PO TID PRN PRN Reason: Cough Stop: 10/04/24 22:37 Last Admin: 09/06/24 07:32 Dose: 100 mg Enoxaparin Sodium (Enoxaparin Inj 40 Mg/0.4 Ml Syr) 40 mg SQ QPM JANUSZ Stop: 10/03/24 20:59 Last Admin: 09/05/24 20:47 Dose: 40 mg Fluticasone Furoate (Fluticasone Furoate 100mcg 14 Puffs/Inhaler) 1 puffs INH DAILY JANUSZ Stop: 10/04/24 08:59 Last Admin: 09/06/24 07:30 Dose: 1 puffs Furosemide (Furosemide 20 Mg Tab) 20 mg PO QAM JANUSZ Stop: 10/04/24 08:59 Last Admin: 09/06/24 07:29 Dose: 20 mg Ceftriaxone Sodium (Rocephin) 2,000 mg in 50 mls @ 100 mls/hr IV Q24H JANUSZ Stop: 09/10/24 13:59 Last Infusion: 09/05/24 14:49 Dose: Infused Azithromycin 500 mg/ Dextrose 255 mls @ 125 mls/hr IV Q24H JANUSZ Stop: 09/06/24 14:59 Last Infusion: 09/05/24 17:55 Dose: Infused Methylprednisolone 40 mg/ (Syringe) 0.64 mls @ 1.5 mls/min IV Q8H JANUSZ Stop: 10/03/24 13:59 Last Admin: 09/06/24 04:57 Dose: 1.5 mls/min Levalbuterol HCl (Levalbuterol 1.25 Mg/3 Ml Neb) 1.25 mg NEB QIDR JANUSZ Stop: 10/03/24 13:59 Last Admin: 09/06/24 10:16 Dose: 1.25 mg Potassium Chloride (Potassium Chloride Crtab 20 Meq Tabcr) 20 meq PO QAM JANUSZ Stop: 10/04/24 08:59 Last Admin: 09/06/24 07:30 Dose: 20 meq Umeclidinium/Vilanterol (Umeclidinium/Vilanterol 62.5/25mcg 7 Puffs/Inhaler) 1 puffs INH DAILY JANUSZ Stop: 10/04/24 08:59 Last Admin: 09/06/24 07:30 Dose: 1 puffs Vitamin D (Cholecalciferol 25 Mcg (1000 Units) Tab) 25 mcg PO QAM JANUSZ Stop: 10/04/24 08:59 Last Admin: 09/06/24 07:29 Dose: 25 mcg (5) COPD (chronic obstructive pulmonary disease) COPD type: unspecified COPD Qualified Code(s): J44.9 - Chronic obstructive pulmonary disease, unspecified
[2024-09-06] MEDS: METOPROLOL SUCC 25MG EXT REL TAB PO SCH (17:50)
[2024-09-06] MEDS: CEFDINIR 300 MG CAP PO SCH (21:28)
[2024-09-07 07:35] LABS: Basophils # (auto) 0.02 K/uL (0.00-0.20); Basophils % (auto) 0.2 %; Eosinophils # (auto) 0.02 K/uL (0.00-0.50); Eosinophils % (auto) 0.2 %; Hematocrit (blood only) 43.9 % (37.0-47.0); Hemoglobin 14.7 g/dl (12.0-16.0); Immature Granulocytes # (auto) 0.12 K/uL (0.01-0.20); Immature Granulocytes % (auto) 1.1 %; Lymphocytes # (auto) 0.67 K/uL (1.20-3.40); Lymphocytes % (auto) 6.2 %; Mean Corpuscular Hemoglobin 31.1 pg (25.0-34.0); Mean Corpuscular Hgb Conc 33.5 g/dL (32.0-36.0); Mean Corpuscular Volume 92.8 fL (80.0-100.0); Mean Platelet Volume 10.7 fL (9.4-12.4); Monocytes # (auto) 1.19 K/uL (0.11-0.59); Neutrophils # (auto) 8.81 K/uL (1.40-6.50); Neutrophils % (auto) 81.3 %; Platelet Count 305 K/uL (130-400); RDW Coefficient of Variation 13.4 % (11.5-14.5); RDW Standard Deviation 45.9 fL (36.4-46.3); Red Blood Count 4.73 M/uL (4.20-5.40); White Blood Count 10.83 K/ul (4.8-10.8)
[2024-09-07 07:43] VITALS: PULSE 65; RESP 16; TEMP 97.9; O2SAT 90
[2024-09-07 07:44] LABS: BUN Creatinine Ratio 24.6 (10-20); Calcium 9.3 mg/dl (8.6-10.3); Potassium 4.5 mmol/L (3.5-5.1)
[2024-09-07] MEDS: predniSONE 20 MG TAB PO SCH (08:12)
--- NOTE | 2024-09-07 09:01 | Discharge Summary ---
Discharge Summary Date of Service September 07, 2024 Principal Dx & Hospital Course #1 = Principal Diagnosis (1) Acute and chronic respiratory failure with hypoxia: (2) Acute exacerbation of chronic obstructive pulmonary disease: (3) Chronic diastolic heart failure: (4) COPD (chronic obstructive pulmonary disease): Plan Patient is a 74-year-old female who presented to the emergency room with increasing shortness of breath despite using her usual oxygen flow. She was noted to be hypoxic at home. Imaging in the emergency room was unremarkable for pneumonia however, was referred for further evaluation. Patient was cared for in the hospital. She was given supplemental oxygen. She was treated with nebulizer treatments, steroids and antibiotics. Over the course of her hospitalization her shortness of breath and dyspnea significantly improved. She was titrated down to her usual oxygen flow. She was transition to oral antibiotics and oral steroids. The day prior to discharge she was up and ambulating the halls with her daughter without increasing dyspnea or hypoxia. On the morning of discharge she was up and eating breakfast. Other vital signs are stable. She be discharged home for ongoing care and follow-up with outpatient providers. We will get her set up with a home nebulizer so she has that available to use at home with DuoNeb. Patient already has oxygen at home but did not have a nebulizer prior to this hospitalization. Notes For Next Care Provider May need additional adjustments in her chronic inhalers wound respiratory treatments Medication Changes From Visit Matteo added as needed for shortness of breath and wheezing Short course of antibiotics and steroids for exacerbation of COPD Admission HPI Per Admitting Provider The patient is a 74-year-old female with a past medical history of diastolic CHF, COPDbaseline on 3 L, HLD, vitamin D deficiency who presents to the ED on 09/03/2024 with complaints of increasing shortness of breath. The patient reports starting to feel short of breath last night. She was on her usual oxygen requirement of 3 L. She reports increased her oxygen to 4 L and her pulse ox remained in the low 80s at this time. She decided to come to the ER today. She denies any recent fever/chills/abdominal pain/nausea/vomiting/diarrhea. She does report a productive cough with brown sputum which is not normal for her. Reports compliance with Trelegy and inhaler at home. She does not use nebulizers at home. Chest x-ray was not suggestive of pneumonia, WBC mildly elevated 11. Labs are otherwise unremarkable. UA was negative. Respiratory panel was negative. In the ED, patient was given Solu-Medrol and nebulizer with improvement in oxygen requirements. Patient remains on 4 L on exam. This was decreased from 6 L on arrival to the ED. The patient will be admitted for COPD exacerbation Admission Exam Per Admitting Provider See H&P Discharge Exam Constitutional: Alert, no acute distress HEENT: Mucous membranes moist. Lungs: Decreased breath sounds, prolonged expiratory phase, no wheezes or rhonchi or rales CV: S1-S2, regular Abdomen: Soft, nontender, nondistended Extremities: No significant edema Neuro: No focal deficits Psych: Cooperative, normal mood Updated Medication List Medication Instructions Recorded Confirmed Type Over Night Pulse OX #1 ea 09/01/19 04/29/24 Rx Oxygen Home #1 ea 09/18/19 04/29/24 Rx cholecalciferol (vitamin D3) 25 25 mcg PO QAM 11/01/20 09/03/24 History mcg (1,000 unit) capsule atorvastatin 20 mg tablet 20 mg PO QAM 12/22/21 09/03/24 History fluticasone fur. 100 mcg-umeclid 1 inh inhalation QAM 01/29/22 09/03/24 History 62.5 mcg-vilant 25 mcg inhalat.powder (Trelegy Ellipta) furosemide 20 mg tablet 20 mg PO QAM 01/29/22 09/03/24 History potassium chloride 20 mEq 20 meq PO QAM 01/29/22 09/03/24 History tablet,extended release(part/cryst) Portable Oxygen #1 ea 03/20/24 04/29/24 Rx cefdinir 300 mg capsule 300 mg PO BID 3 days #6 caps 09/07/24 Rx ipratropium 0.5 mg-albuterol 3 mg 3 ml inhalation Q6H PRN wheezing/ 09/07/24 Rx (2.5 mg base)/3 mL nebulization short of breath #180 mL soln metoprolol succinate 25 mg 12.5 mg (1/2 x 25 mg) PO QAM 60 09/07/24 Rx tablet,extended release 24 hr days #30 tabs prednisone 20 mg tablet 40 mg (2 x 20 mg) PO DAILY 2 days 09/07/24 Rx #4 tabs Hospital Stay Data Consultations 09/03/24 10:31 ED Decision to Admit Stat Diagnostic Imagining Performed Reviewed imaging, laboratory and diagnostic studies. Pertinent findings as below. Chest x-ray some interstitial disease but no infiltrative pneumonia WBCs 10.8, mildly increased due to steroids Electrolytes stable within normal range Pending Results Patient Have Any Pending Studies at Discharge: No Discharge Instructions Given to Patient (Per Discharging Provider) Complete course of antibiotics Total Time Total Time Spent Total Time Spent (In Minutes): 26
[2024-09-07 09:08] VITALS: BP 133/77
[2024-09-07] MEDS ORDERED: LEVALBUTEROL 1.25 MG/3 ML NEB NEB PRN (10:04)
--- NOTE | 2024-09-07 15:24 | Electrocardiogram Report ---
Test Reason : Blood Pressure : */* mmHG Vent. Rate : 64 BPM Atrial Rate : 64 BPM P-R Int : 130 ms QRS Dur : 108 ms QT Int : 438 ms P-R-T Axes : 43 43 78 degrees QTcB Int : 451 ms Sinus rhythm with Premature supraventricular complexes Incomplete right bundle branch block Nonspecific ST and T wave abnormality Abnormal ECG When compared with ECG of 03-Sep-2024 07:58, Premature supraventricular complexes are now Present Confirmed by Carlos Magana [id number]) on 09/07/2024 3:23:58 PM Referred By: REFERRED SELF Confirmed By: Carlos Magana
== END 2024-09-07 11:55 | disposition home or self-care (01) | DRG 189 ==
LOC: ED 07:46 → SUATTDRO 11:38 → 2N 11:38